=== PATIENT | male | born 1965 | race Caucasian/White ===

== ENCOUNTER 2025-01-30 10:15 | Emergency (ER) | payer OTHER, SELFPAY ==
[2025-01-30 10:16] VITALS: BP 165/82; PULSE 81; RESP 19; TEMP 36.6; O2SAT 97; BMI 53.4
[2025-01-30 10:28] VITALS: O2SAT 97
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
--- NOTE | 2025-01-30 12:55 | CT_ITS ---
PROCEDURE: SPINE THORACIC WITHOUT CONTRAS 01/30/2025 REASON FOR EXAM: Upper back pain TECHNIQUE: Procedure Code: CTSPTH Modality: CT Procedure: SPINE THORACIC WITHOUT CONTRAS Coronal and Sagittal reconstruction series were provided. One or more dose reduction techniques were used (e.g., Automated exposure control, adjustment of the mA and/or kV according to patient size, use of iterative reconstruction technique). RADIATION DOSE SUMMARY: DLP: 2021.42 mGycm COMPARISON: None available. FINDINGS: The normal thoracic kyphosis is maintained. The thoracic vertebral bodies are normal in height. The thoracic vertebral bodies are normal in alignment. The thoracic facet joints are aligned. The thoracic spinal processes are intact. No evidence of focal lytic or sclerotic lesion in the thoracic spine. Degenerative changes of the thoracic spine. There is no evidence of high-grade thoracic spinal canal or neural foraminal stenosis on CT. CT/Spine Thoracic without Contras IMPRESSION: No acute fracture or dislocation in the thoracic spine. Reading Location: [facility]
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
[2025-01-30 13:21] VITALS: BP 148/63; PULSE 68; RESP 18; O2SAT 96
[2025-01-30 13:43] VITALS: BP 148/63; PULSE 68; RESP 18; TEMP 36.6; O2SAT 96
--- OUTSIDE RECORDS SUMMARY | 2025-01-30 19:29 | XMS RPT_ITS | CCD ---
Author Organization [facility] Care Team Providers Care 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 Name Role Phone Vicente Castañeda MD Primary Care Provider Vicente Castañeda MD Primary Care Provider Yvan BUN PANNER.Rahda BEARD Unavailable Aurora Hahn PA-C Unavailable Vicente Castañeda MD Primary Care Provider [phone] Aurora Hahn PA-C Primary Care Provider Vicente Castañeda MD Primary Care Provider Knyuly BUN PANNER.Radha BEARD Unavailable Aurora Hahn PA-C Unavailable [phone] [facility] Attending Unavailable VICENTE CASTAÑEDA Primary Care Unavailable [facility] Referring Unavailable VICENTE CASTAÑEDA Primary Care Unavailable Medications Current Medications Medication Drug Class(es) Dates Sig (Normalized) Sig (Original) aspirin 81 mg delayed release oral tablet (12 sources) Platelet Aggregation Inhibitor, Nonsteroidal Anti-inflammatory Drug take 1 tablet by mouth once daily aspirin, enteric coated (ASPIRIN, ENTERIC COATED) 81 mg EC tablet Take 81 mg by mouth once daily. Active Comment on above: Take 81 mg by mouth once daily. azithromycin 250 mg oral tablet (1 source) Macrolide Antimicrobial Start: 05-23-2022 End: 05-28-2022 azithromycin (ZITHROMAX Z-SJ) 250 mg tablet Indications: Bronchitis Take 2 tablets day one, then, 1 tablet daily until gone. 6 tablet 0 05/23/2022 05/28/2022 Active Comment on above: Take 2 tablets day o ne, then, 1 tablet daily until gone. levothyroxine sodium 0.075 mg oral tablet (20 sources) l-Thyroxine Start: 04-22-2021 End: 01-14-2024 levothyroxine (SYNTHROID) 75 mcg tablet Indications: Acquired hypothyroidism Take 1 tablet by mouth once daily. Thursday-Thursday. Take 2 tablet on Thursday. Take on empty stomach. For Thyroid. 102 tablet 3 01/14/2024 Active Start: 10-02-2020 End: 10-30-2020 take 1 tablet by mouth once daily for thyroid dysfunction levothyroxine (SYNTHROID) 75 mcg tablet Take 1 tablet by mouth once daily. Take on empty stomach. For Thyroid. 30 tablet 5 10/02/2020 10/30/2020 Discontinued Comment on above: Take 1 tablet by florian th once daily. Thursday-Thursday. Take 1.5 tablet on Thursday. Take on empty stomach. For Thyroid. Take 1 tablet by florian th once daily. Thursday-Thursday. Take 2 tablet on Thursday. Take on empty stomach. For Thyroid. predniSONE 10 mg oral tablet (2 sources) Start: End: predniSONE (DELTASONE) 10 mg tablet Take 4 tabs daily for 3 days, then 2 tabs daily for 3 days, then 1 tab daily for 3 days with food. 21 tablet 0 10/21/2021 10/30/2021 Active Comment on above: Take 4 tabs daily fo r 3 days, then 2 tabs daily for 3 days, then 1 tab daily for 3 days with food. rosuvastatin calcium 20 mg oral tablet (20 sources) HMG-CoA Reductase Inhibitor Start: End: take 1 tablet by mouth once daily at bedtime rosuvastatin (CRESTOR) 20 mg tablet Indications: Hyperlipidemia, unspecified hyperlipidemia type Take 1 tablet by mouth daily at bedtime. 90 tablet 3 01/14/2024 Active Comment on above: Take 1 tablet by florian th daily at bedtime. TAKE 1 TABLET BY FLORIAN TH AT BEDTIME Completed/Discontinued Medications Medication Drug Class(es) Dates Sig (Normalized) Sig (Original) [id number] 200 actuat albuterol 0.09 mg/actuat metered dose inhaler (6 sources) beta2-Adrenergic Agonist Start: 06-17-2021 End: 10-21-2021 take 2 puff(s) by inhalation every four hours as needed albuterol HFA (VENTOLIN HFA) 90 mcg/actuation inhaler Indications: History of COVID-19 , Productive cough Inhale 2 Puffs as instructed every 4 hours as needed. 1 Inhaler 1 06/17/2021 10/21/2021 Discontinued Comment on above: Inhale 2 Puffs as in structed every 4 hours as needed. benzonatate 100 mg oral capsule (5 sources) Non-narcotic Antitussive Start: 06-17-2021 End: 06-27-2021 take 1 capsule by mouth three times daily as needed benzonatate (TESSALON PERLE) 100 mg capsule Indications: History of COVID-19 , Productive cough Take 1 capsule by mouth three times daily as needed for up to 10 days. 30 capsule 06/17/2021 06/27/2021 Comment on above: Take 1 capsule by mo [facility] three times daily as needed for up to 10 days. cyclobenzaprine hydrochloride 10 mg oral tablet (20 sources) Muscle Relaxant Start: 10-21-2021 End: 08-10-2024 take 1 tablet by mouth every eight hours as needed cyclobenzaprine (FLEXERIL) 10 mg tablet Take 1 tablet by mouth three times a day as needed for muscle spasm. 90 tablet 3 11/14/2022 08/10/2024 Discontinued Comment on above: Take 1 tablet by florian three times daily as needed for muscle spasm. Take 1 tablet by florian th three times a day as needed for muscle spasm. diclofenac sodium 0.01 mg/mg topical gel (12 sources) Nonsteroidal Anti-inflammatory Drug Start: 11-14-2022 End: 08-10-2024 apply 4 g topically four times daily diclofenac (VOLTAREN) 1 % topical gel Apply 4 g to affected area four times daily. 100 g 5 11/14/2022 08/10/2024 Discontinued Comment on above: Apply 4 g to affecte d area four times daily. fluticasone propionate 0.05 mg/actuat metered dose nasal spray (5 sources) Corticosteroid Start: 07-02-2023 End: 08-10-2024 take 2 spray(s) by mouth once daily fluticasone (FLONASE) 50 mcg/actuation nasal spray Indications: Vertigo Use 2 Sprays in each nostril once daily. Rinse mouth after use. 1 Each 1 07/02/2023 08/10/2024 Discontinued meclizine hydrochloride 25 mg oral tablet (5 sources) Antiemetic Start: 07-02-2023 End: 08-10-2024 take 1 tablet by mouth every six hours as needed for dizziness meclizine (ANTIVERT) 25 mg tab Indications: Vertigo Take 1 tablet by mouth every 6 hours as needed (dizziness). 30 tablet 1 07/02/2023 08/10/2024 Discontinued meloxicam 15 mg oral tablet (16 sources) Nonsteroidal Anti-inflammatory Drug Start: 05-23-2022 End: 08-10-2024 take 1 tablet by mouth once daily at mealtime meloxicam (MOBIC) 15 mg tablet Take 1 tablet by mouth once daily. Take with food. 90 tablet 3 11/14/2022 08/10/2024 Discontinued Comment on above: Take 1 tablet by florian th once daily. Take with food. perflutren lipid microspheres 1.3 mL in NaCl (PF) 0.9% 10 mL injection (DEFINITY) (12 sources) Start: 10-04-2020 End: 01-03-2022 perflutren lipid microspheres 1.3 mL in NaCl (PF) 0.9% 10 mL injection (DEFINITY) 125 ml sodium chloride 9 mg/ml prefilled syringe (12 sources) Start: 10-04-2020 End: 01-03-2022 sodium chloride 0.9 % (flush) 10 mL (BD POSIFLUSH) Problems Active Problems Problem Classification Problem Date Documented Date Episodic/Chronic Chronic obstructive pulmonary disease and bronchiectasis (1 source) Bronchitis; Translations: [Bronchitis, not specified as acute or chronic] Episodic Disorders of lipid metabolism (5 sources) Hyperlipidemia; Translations: [Hyperlipidemia, unspecified] Chronic Immunizations and screening for infectious disease (1 source) Viral screening status; Translations: [Encounter for screening for other viral diseases] Episodic Mood disorders (20 sources) Recurrent major depression in remission; Translations: [Major depressive disorder, recurrent, in remission, unspecified] Onset: 10-05-2007 03-17-2019 Chronic Other connective tissue disease (1 source) Lateral epicondylitis of left humerus; Translations: [Lateral epicondylitis, left elbow] Episodic Other ear and sense organ disorders (1 source) Bilateral tinnitus; Translations: [Tinnitus, bilateral] 07-02-2023 Episodic Other infections; including parasitic (2 sources) Personal history of other infectious and parasitic diseases; Translations: [History of COVID-19] Episodic Other lower respiratory disease (2 sources) Productive cough ; Translations: [Productive cough] Episodic Other non-traumatic joint disorders (5 sources) Pain in right knee; Translations: [Pain in joint, lower leg] Episodic Other nutritional; endocrine; and metabolic disorders (20 sources) Body mass index 40+ - severely obese; Translations: [Morbid (severe) obesity due to excess calories] Onset: 10-05-2007 03-17-2019 Chronic Other nutritional; endocrine; and metabolic disorders (2 sources) Morbid obesity; Translations: [Morbid (severe) obesity due to excess calories] 11-14-2022 Chronic Other nutritional; endocrine; and metabolic disorders (1 source) Morbid (severe) obesity due to excess calories; Translations: [Morbid obesity with BMI of 50.0-59.9, adult ([facility])] Onset: 08-10-2024 Chronic Other nutritional; endocrine; and metabolic disorders (1 source) Body mass index (BMI) 50.0-59.9, adult; Translations: [Morbid obesity with BMI of 50.0-59.9, adult ([facility])] Onset: 08-10-2024 Chronic Other screening for suspected conditions (not mental disorders or infectious disease) (20 sources) Patient encounter status; Translations: [Encounter for screening for diabetes mellitus] Onset: 11-19-2018 11-19-2018 Episodic Other skin disorders (1 source) Finding of neck region; Translations: [Localized swelling, mass and lump, neck] Episodic Residual codes; unclassified (20 sources) Obstructive sleep apnea syndrome; Translations: [Obstructive sleep apnea (adult) (pediatric)] Onset: 02-16-2015 10-02-2020 Chronic Residual codes; unclassified (1 source) Obstructive sleep apnea (adult) (pediatric); Translations: [Obstructive sleep apnea syndrome] Onset: 10-02-2020 Chronic Screening and history of mental health and substance abuse codes (1 source) Encounter for screening examination for other mental health and behavioral disorders; Translations: [Encounter for screening examination for other mental health and behavioral disorders] Onset: 08-10-2024 Episodic Thyroid disorders (20 sources) Acquired hypothyroidism; Translations: [Hypothyroidism, unspecified] Onset: 01-22-2008 04-19-2021 Chronic Unclassified (1 source) Obesity, Class III, BMI 40-49.9 (morbid obesity) ([facility]); Translations: [Obesity, Class III, BMI 40-49.9 (morbid obesity) ([facility])] Onset: 03-17-2019 Past or Other Problems Problem Classification Problem Date Documented Da te Episodic/Chronic Adjustment disorders (12 sources) Adjustment disorder with mixed anxiety and depressed mood; Translations: [Adjustment disorder with mixed anxiety and depressed mood] Onset: 05-24-2008 Resolved: 02-16-2015 02-16-2015 Chronic Anxiety disorders (12 sources) Anxiety state; Translations: [Generalized anxiety disorder] Onset: 10-05-2007 Resolved: 02-16-2015 02-16-2015 Chronic Conditions associated with dizziness or vertigo (8 sources) Vertigo; Translations: [Dizziness and giddiness] Onset: 07-20-2023 07-02-2023 Episodic Diabetes mellitus without complication (20 sources) Increased glucose level; Translations: [Other abnormal glucose] Onset: 07-06-2020 07-06-2020 Episodic Residual codes; unclassified (12 sources) Sleep apnea; Translations: [Sleep apnea, unspecified] Onset: 03-12-2007 Resolved: 03-19-2015 03-19-2015 Chronic Spondylosis; intervertebral disc disorders; other back problems (20 sources) Stenosis of lumbar vertebral foramen; Translations: [Spinal stenosis, lumbar region without neurogenic claudication] Onset: 02-10-2004 03-17-2019 Episodic Results Test Name Value Interpretation Reference Range Facility [facility] 08-10-2024 [facility] Office Visit (FAMPWS ) KAYLAH HOBSON ([id number]) 1965 M Date Time Provider Department 08/10/24 9:40 AM [facility] During your visit today, we recorded the following information about you: Temperature Pulse Respiration Blood pressure 97.4 degrees 76/minute 18/minute 136/83 Weight Height 163.3 kg 1.735 m Aurora Hahn PA-C 08/10/2024 12:46 PM Signed Chief Complaint Patient presents with: Yearly Exam HPI Kaylah Hobson is a 59 year old male who presents here today for physical. Patient with hx of Hypothyroid, FREDRICK, elevated glucose, depression, obesity, and those as below. Annual Wellness Exam: - No significant medical or surgical changes since last visit. - Occasional cigar use. - Consumes approximately 12 beers per week; denies drug use, including marijuana. Weight Management: - Current weight: 360 lbs; weight in June 2023: 359 lbs. - Desires to lose weight through diet and exercise, but lacks motivation. - Diet high in carbohydrates, particularly breads; denies high sweets intake. - Drinks water, coffee, orange juice, iced tea, and beer. - Denies interest in weight loss surgery or medication. Prediabetes: - Recent labs show elevated A1c and fasting glucose of 139 mg/dL. - Kaylah believes he can manage blood sugar levels through diet and weight loss. - Denies interest in medication for blood sugar control. Concentration Issues: - Reports difficulty concentrating and brain fog over the past couple of years. - Describes inability to focus as overwhelming and affecting work performance. - Denies history of ADHD; refuses medication for concentration issues. Past medical history, appointments, medications, allergies reviewed. Previous Medical History PAST MEDICAL HISTORY Diagnosis Date Acquired hypothyroidism 01/22/2008 No longer on medication Cardiac dysrhythmia, unspecified 12/29/2007 ECG showed a single PVC in 12-17 Cervicalgia 02/20/2010 Foraminal stenosis of lumbar region 11/19/2018 Lumbago 02/20/2010 Obesity, Class III, BMI 40-49.9 (morbid obesity) (HCC) 10/05/2007 Obstructive sleep apnea syndrome 02/16/2015 Other chronic sinusitis 1994 Recurrent major depressive disorder, in remission 10/05/2007 Appt with Chay Brian on 11-22-07 at [facility] Intolerant of Paxil as of 10-17: changed to a trial of Cymbalta Trial of q Cymbalta as of 10-17: if no ringing in the ears then will try once daily dosing after 2 weeks Appt 01-16 with physician at [facility]: work release granted until after his 01-24-08 appt with [facility] 01-16: clinically improving, no need for pharmacologic intervention Working p Spinal stenosis in cervical region 2004 Spondylosis Temporomandibular joint disorders, unspecified Previous Surgical History PAST SURGICAL HISTORY Procedure Laterality Date PAST SURGICAL HISTORY OF 2003 C5,6,7 fusion PAST SURGICAL HISTORY OF 1986 1990 TMJ PAST SURGICAL HISTORY OF 1992 sinus surgery PAST SURGICAL HISTORY OF 2004 ear surgery, left, cholesteatoma? Family History FAMILY HISTORY Adopted: Yes Problem Relation Age of Onset other (adopted) Other Patient Allergies ALLERGIES No Known Allergies Current Medications Current Outpatient Medications on File Prior to Visit Medication Sig levothyroxine (SYNTHROID) 75 mcg tablet Take 1 tablet by mouth once daily. Thursday-Thursday. Take 2 tablet on Thursday. Take on empty stomach. For Thyroid. rosuvastatin (CRESTOR) 20 mg tablet Take 1 tablet by mouth daily at bedtime. aspirin, enteric coated (ASPIRIN, ENTERIC COATED) 81 mg EC tablet Take 81 mg by mouth once daily. meclizine (ANTIVERT) 25 mg tab Take 1 tablet by mouth every 6 hours as needed (dizziness). (Patient not taking: Reported on 08/10/2024) fluticasone (FLONASE) 50 mcg/actuation nasal spray Use 2 Sprays in each nostril once daily. Rinse mouth after use. (Patient not taking: Reported on 08/10/2024) cyclobenzaprine (FLEXERIL) 10 mg tablet Take 1 tablet by mouth three times a day as needed for muscle spasm. (Patient not taking: Reported on 08/10/2024) meloxicam (MOBIC) 15 mg tablet Take 1 tablet by mouth once daily. Take with food. (Patient not taking: Reported on 08/10/2024) diclofenac (VOLTAREN) 1 % topical gel Apply 4 g to affected area four times daily. (Patient not taking: Reported on 08/10/2024) No current facility-administered medications on file prior to visit. Social History Social History Tobacco Use Smoking status: Former Current packs/day: 0.00 Average packs/day: 1 pack/day for 13.0 years (13.0 ttl pk-yrs) Types: Cigarettes Start date: 02/11/1983 Quit date: 02/12/1996 Years since quittin.5 Smokeless tobacco: Never Tobacco comments: smokes cigars occasionally Vaping Use Vaping status: Never Used Substance Use Topics Alcohol use: Yes Alcohol/week: 12.0 standard drinks of alcohol Types (more content not included)... Normal [facility] CBC W Auto Differential pane l (Bld)on 08-08-2024 Basophils (Bld) [#/Vol] 0.05 10*3/uL [facility] Basophils/100 WBC (Bld) 0.7 % [facility] Differential cell count method Nom (Bld) Auto [facility] Eosinophils (Bld) [#/Vol] 0.32 10*3/uL [facility] Eosinophils/100 WBC (Bld) 4.6 % [facility] Erythrocyte distribution width (RBC) [Ratio] 14.8 % 11.5 - 15.0 % [facility] Hematocrit (Bld) [Volume fraction] 47.7 % 39.0 - 51.0 % [facility] Hemoglobin (Bld) [Mass/Vol] 14.5 g/dL 13.0 - 17.0 g/dL [facility] Immature granulocytes (Bld) [#/Vol] [facility] Immature granulocytes/100 WBC (Bld) 0.3 % [facility] Interpretation and review of laboratory results Abnormal [facility] Lymphocytes (Bld) [#/Vol] 1.2 10*3/uL [facility] Lymphocytes/100 WBC (Bld) 17.2 % [facility] MCH (RBC) [Entitic mass] 25.5 pg Low 26.0 - 34.0 pg [facility] MCHC (RBC) [Mass/Vol] 30.4 g/dL Low 30.5 - 36.0 g/dL [facility] MCV (RBC) [Entitic vol] 83.8 fL 80.0 - 100.0 fL [facility] Monocytes (Bld) [#/Vol] 0.65 10*3/uL [facility] Monocytes/100 WBC (Bld) 9.3 % [facility] Neutrophils (Bld) [#/Vol] 4.72 10*3/uL [facility] Neutrophils/100 WBC (Bld) 67.9 % [facility] Nucleated RBC (Bld) [#/Vol] [facility] Nucleated RBC/100 WBC (Bld) [Ratio] 0 % /100 WBC [facility] Platelet mean volume (Bld) [Entitic vol] 10.9 fL 9.0 - 12.7 fL [facility] Platelets (Bld) [#/Vol] 282 10*3/uL [facility] RBC (Bld) [#/Vol] 5.69 10*6/uL 4.20 - 6.0 0 m/uL [facility] WBC (Bld) [#/Vol] 6.96 10*3/uL [facility] Basophils (Bld) [#/Vol] 0.05 10*3/uL Normal <0.11 [facility] Comment on above: Order Comment: Speci men Type: BLOOD SPECIMEN Ordering Facility: [facility] Address: [address] [place] [address] Performed By: #### 5 7021-8 #### [facility] CLIA [id number] [address] [place] [address] [place] Basophils/100 WBC (Bld) 0.7 % Normal [facility] Comment on above: Order Comment: Speci men Type: BLOOD SPECIMEN Ordering Facility: [facility] Address: [address] [place] [address] Performed By: #### 5 7021-8 #### [facility] CLIA [id number] [address] [place] [address] [place] Differential cell count method Nom (Bld) Auto Normal [facility] Comment on above: Order Comment: Speci men Type: BLOOD SPECIMEN Ordering Facility: [facility] Address: [address] [place] [address] Performed By: #### 5 7021-8 #### [facility] CLIA [id number] [address] [place] [address] [place] Eosinophils (Bld) [#/Vol] 0.32 10*3/uL Normal <0.46 [facility] Comment on above: Order Comment: Speci men Type: BLOOD SPECIMEN Ordering Facility: [facility] Address: [address] [place] [address] Performed By: #### 5 7021-8 #### [facility] CLIA [id number] [address] [place] [address] [place] Eosinophils/100 WBC (Bld) 4.6 % Normal [facility] Comment on above: Order Comment: Speci men Type: BLOOD SPECIMEN Ordering Facility: [facility] Address: [address] [place] [address] Performed By: #### 5 7021-8 #### [facility] CLIA [id number] [address] [place] [address] [place] Erythrocyte distribution width (RBC) [Ratio] 14.8 % Normal 11.5-15.0 [facility] Comment on above: Order Comment: Speci men Type: BLOOD SPECIMEN Ordering Facility: [facility] Address: [address] [place] [address] Performed By: #### 5 7021-8 #### [facility] CLIA [id number] [address] [place] [address] [place] Hematocrit (Bld) [Volume fraction] 47.7 % Normal 39.0-51.0 [facility] Comment on above: Order Comment: Speci men Type: BLOOD SPECIMEN Ordering Facility: [facility] Address: [address] [place] [address] Performed By: #### 5 7021-8 #### [facility] CLIA [id number] [address] [place] [address] [place] Hemoglobin (Bld) [Mass/Vol] 14.5 g/dL Normal 13.0-17.0 [facility] Comment on above: Order Comment: Speci men Type: BLOOD SPECIMEN Ordering Facility: [facility] Address: [address] [place] [address] Performed By: #### 5 7021-8 #### [facility] CLIA [id number] [address] [place] [address] [place] Immature granulocytes (Bld) [#/Vol] 10*3/uL Normal <0.10 [facility] Comment on above: Order Comment: Speci men Type: BLOOD SPECIMEN Ordering Facility: [facility] Address: [address] [place] [address] Performed By: #### 5 7021-8 #### [facility] CLIA [id number] [address] [place] [address] [place] Immature granulocytes/100 WBC (Bld) 0.3 % Normal [facility] Comment on above: Order Comment: Speci men Type: BLOOD SPECIMEN Ordering Facility: [facility] Address: [address] [place] [address] Performed By: #### 5 7021-8 #### [facility] CLIA [id number] [address] [place] [address] [place] Lymphocytes (Bld) [#/Vol] 1.20 10*3/uL Normal 1.00-4.00 [facility] Comment on above: Order Comment: Speci men Type: BLOOD SPECIMEN Ordering Facility: [facility] Address: [address] [place] [address] Performed By: #### 5 7021-8 #### [facility] CLIA [id number] [address] [place] [address] [place] Lymphocytes/100 WBC (Bld) 17.2 % Normal [facility] Comment on above: Order Comment: Speci men Type: BLOOD SPECIMEN Ordering Facility: [facility] Address: [address] [place] [address] Performed By: #### 5 7021-8 #### [facility] CLIA [id number] [address] [place] [address] [place] MCH (RBC) [Entitic mass] 25.5 pg Low 26.0-34.0 [facility] Comment on above: Order Comment: Speci men Type: BLOOD SPECIMEN Ordering Facility: [facility] Address: [address] [place] [address] Performed By: #### 5 7021-8 #### [facility] CLIA [id number] [address] [place] [address] [place] MCHC (RBC) [Mass/Vol] 30.4 g/dL Low 30.5-36.0 [facility] Comment on above: Order Comment: Speci men Type: BLOOD SPECIMEN Ordering Facility: [facility] Address: [address] [place] [address] Performed By: #### 5 7021-8 #### [facility] CLIA [id number] [address] [place] [address] [place] MCV (RBC) [Entitic vol] 83.8 fL Normal 80.0-100.0 [facility] Comment on above: Order Comment: Speci men Type: BLOOD SPECIMEN Ordering Facility: [facility] Address: [address] [place] [address] Performed By: #### 5 7021-8 #### [facility] CLIA [id number] [address] [place] [address] [place] Monocytes (Bld) [#/Vol] 0.65 10*3/uL Normal <0.87 [facility] Comment on above: Order Comment: Speci men Type: BLOOD SPECIMEN Ordering Facility: [facility] Address: [address] [place] [address] Performed By: #### 5 7021-8 #### [facility] CLIA [id number] [address] [place] [address] [place] Monocytes/100 WBC (Bld) 9.3 % Normal [facility] Comment on above: Order Comment: Speci men Type: BLOOD SPECIMEN Ordering Facility: [facility] Address: [address] [place] [address] Performed By: #### 5 7021-8 #### [facility] CLIA [id number] [address] [place] [address] [place] Neutrophils (Bld) [#/Vol] 4.72 10*3/uL Normal 1.45-7.50 [facility] Comment on above: Order Comment: Speci men Type: BLOOD SPECIMEN Ordering Facility: [facility] Address: [address] [place] [address] Performed By: #### 5 7021-8 #### [facility] CLIA [id number] [address] [place] [address] [place] Neutrophils/100 WBC (Bld) 67.9 % Normal [facility] Comment on above: Order Comment: Speci men Type: BLOOD SPECIMEN Ordering Facility: [facility] Address: [address] [place] [address] Performed By: #### 5 7021-8 #### [facility] CLIA [id number] [address] [place] [address] [place] Nucleated RBC (Bld) [#/Vol] 10*3/uL Normal <0.01 [facility] Comment on above: Order Comment: Speci men Type: BLOOD SPECIMEN Ordering Facility: [facility] Address: [address] [place] [address] Performed By: #### 5 7021-8 #### [facility] CLIA [id number] [address] [place] [address] [place] Nucleated RBC/100 WBC (Bld) [Ratio] 0.0 /100 WBC Normal [facility] Comment on above: Order Comment: Speci men Type: BLOOD SPECIMEN Ordering Facility: [facility] Address: [address] [place] [address] Performed By: #### 5 7021-8 #### [facility] CLIA [id number] [address] [place] [address] [place] Platelet mean volume (Bld) [Entitic vol] 10.9 fL Normal 9.0-12.7 [facility] Comment on above: Order Comment: Speci men Type: BLOOD SPECIMEN Ordering Facility: [facility] Address: [address] [place] [address] Performed By: #### 5 7021-8 #### [facility] CLIA [id number] [address] [place] [address] [place] Platelets (Bld) [#/Vol] 282 10*3/uL Normal 150-400 [facility] Comment on above: Order Comment: Speci men Type: BLOOD SPECIMEN Ordering Facility: [facility] Address: [address] [place] [address] Performed By: #### 5 7021-8 #### [facility] CLIA [id number] [address] [place] [address] [place] RBC (Bld) [#/Vol] 5.69 10*6/uL Normal 4.20-6.00 [facility] Comment on above: Order Comment: Speci men Type: BLOOD SPECIMEN Ordering Facility: [facility] Address: [address] [place] [address] Performed By: #### 5 7021-8 #### [facility] CLIA [id number] [address] [place] [address] [place] WBC (Bld) [#/Vol] 6.96 10*3/uL Normal 3.70-11.00 [facility] Comment on above: Order Comment: Speci men Type: BLOOD SPECIMEN Ordering Facility: [facility] Address: [address] [place] [address] Performed By: #### 5 7021-8 #### [facility] CLIA [id number] [address] [place] [address] OF [place] Lydia 08-08-2024 KISHAN Telephone (FAMPWS) KAYLAH HOBSON ([id number]) 1965 M Date Time Provider Department 08/08/24 VICENTE CASTAÑEDA During your visit today, we recorded the following information about you: Jacqueline Cole RN 08/08/2024 8:54 AM Signed Patient calling in. States he has a Physical scheduled with MILO Andrews tomorrow and asking if she would like to place lab orders this morning for him to complete today. Reports he has not ate anything yet. Please call patent with update. [phone] TRU Tao Rayanne, PA-C 08/08/2024 9:10 AM Signed Carlota Hameed LPN 08/08/2024 9:20 AM Signed Pt notified orders have been placed. Carlota Miranda LPN Allergies As of Date: 08/08/2024 (No Known Allergies) Date Reviewed: 07/02/2023 Reviewed by: Monica Murray MA - Fully Assessed Reason for Visit: Orders [681] Primary Visit Diagnosis:Acquired hypothyroidism [E03.9] Other Visit Diagnoses:Obesity, Class III, BMI 40-49.9 (morbid obesity) (HCC) [E66.813] Screening for diabetes mellitus [Z13.1] Elevated glucose [R73.09] Abnormal nuclear stress test [R94.39] Morbid obesity (HCC) [E66.01] Obstructive sleep apnea syndrome [G47.33] Hyperlipidemia, unspecified hyperlipidemia type [E78.5] Screening for prostate cancer [Z12.5] Order(s):COMPLETE BLOOD COUNT AND DIFFERENTIAL [SQCBCDIF] Order #: [id number] FUTURE HEMOGLOBIN A1C [ZVYIF1R] Order #: [id number] FUTURE LIPID PANEL, NONFASTING [SQLIPNF] Order #: [id number] FUTURE THYROID STIMULATING HORMONE [SQTSH] Order #: [id number] FUTURE COMPREHENSIVE METABOLIC PANEL [SQCMP] Order #: [id number] FUTURE PROSTATE-SPECIFIC ANTIGEN DIAGNOSTIC [SQPSA] Order #: [id number] FUTURE Prescriptions as of 08/08/2024 - levothyroxine (SYNTHROID) 75 mcg tablet Take 1 tablet by mouth once daily. Thursday-Thursday. Take 2 tablet on Thursday. Take on empty stomach. For Thyroid. - rosuvastatin (CRESTOR) 20 mg tablet Take 1 tablet by mouth daily at bedtime. - meclizine (ANTIVERT) 25 mg tab Take 1 tablet by mouth every 6 hours as needed (dizziness). - fluticasone (FLONASE) 50 mcg/actuation nasal spray Use 2 Sprays in each nostril once daily. Rinse mouth after use. - aspirin, enteric coated (ASPIRIN, ENTERIC COATED) 81 mg EC tablet Take 81 mg by mouth once daily. - cyclobenzaprine (FLEXERIL) 10 mg tablet Take 1 tablet by mouth three times a day as needed for muscle spasm. - meloxicam (MOBIC) 15 mg tablet Take 1 tablet by mouth once daily. Take with food. - diclofenac (VOLTAREN) 1 % topical gel Apply 4 g to affected area four times daily. 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 Comment on above: Order Comment: Speci men Type: BLOOD SPECIMEN Ordering Facility: [facility] Address: [address] [place] [address] Performed By: #### 2 4323-8, LIPNF, 3016-3 #### [facility] CLIA [id number] [address] [place] [address] [place] ALP [Catalytic activity/Vol] 102 U/L Normal 38-113 [facility] Comment on above: Order Comment: Speci men Type: BLOOD SPECIMEN Ordering Facility: [facility] Address: [address] [place] [address] Performed By: #### 2 4323-8, LIPNF, 6-3 #### [facility] CLIA [id number] [address] [place] [address] [place] ALT [Catalytic activity/Vol] 21 U/L Normal 10-54 [facility] Comment on above: Order Comment: Speci men Type: BLOOD SPECIMEN Ordering Facility: [facility] Address: [address] [place] [address] Performed By: #### 2 4323-8, LIPNF, 6-3 #### [facility] CLIA [id number] [address] [place] [address] [place] Anion gap [Moles/Vol] 12 mmol/L Normal 8-15 [facility] Comment on above: Order Comment: Speci men Type: BLOOD SPECIMEN Ordering Facility: [facility] Address: [address] [place] [address] Performed By: #### 2 4323-8, LIPNF, 6-3 #### [facility] CLIA [id number] [address] [place] [address] [place] AST [Catalytic activity/Vol] 27 U/L Normal 14-40 [facility] Comment on above: Order Comment: Speci men Type: BLOOD SPECIMEN Ordering Facility: [facility] Address: [address] [place] [address] Performed By: #### 2 4323-8, LIPNF, 3016-3 #### [facility] CLIA [id number] [address] [place] [address] [place] Bilirubin [Mass/Vol] 0.3 mg/dL Normal 0.2-1.3 [facility] Comment on above: Order Comment: Speci men Type: BLOOD SPECIMEN Ordering Facility: [facility] Address: [address] [place] [address] Performed By: #### 2 4323-8, LIPNF, 6-3 #### [facility] CLIA [id number] [address] [place] [address] [place] Calcium [Mass/Vol] 9.2 mg/dL Normal 8.5-10.2 [facility] Comment on above: Order Comment: Speci men Type: BLOOD SPECIMEN Ordering Facility: [facility] Address: [address] [place] [address] Performed By: #### 2 4323-8, LIPNF, 6-3 #### [facility] CLIA [id number] [address] [place] [address] [place] Chloride [Moles/Vol] 105 mmol/L Normal 98-107 [facility] Comment on above: Order Comment: Speci men Type: BLOOD SPECIMEN Ordering Facility: [facility] Address: [address] [place] [address] Performed By: #### 2 4323-8, LIPNF, 3016-3 #### [facility] CLIA [id number] [address] [place] [address] [place] CO2 [Moles/Vol] 22 mmol/L Normal 22-30 [facility] Comment on above: Order Comment: Speci men Type: BLOOD SPECIMEN Ordering Facility: [facility] Address: [address] [place] [address] Performed By: #### 2 4323-8, LIPNF, 3016-3 #### [facility] CLIA [id number] [facility] [place] [id number] [place] Creatinine [Mass/Vol] 0.97 mg/dL Normal 0.73-1.22 [facility] Comment on above: Order Comment: Erik eugene Type: BLOOD SPECIMEN Ordering Facility: [facility] Address: [address] [place] [address] Performed By: #### 2 4323-8, ALEXANDRA, 6-3 #### [facility] CLIA [id number] [address] [place] [address] [place] Creatinine and Glomerular filtration rate.predicted panel (S/P/Bld) 91 mL/min/1.73m??? Normal >=60 [facility] Comment on above: Order Comment: Erik eugene Type: BLOOD SPECIMEN Ordering Facility: [facility] Address: [address] [place] [address] Result Comment: Ana mated Glomerular Filtration Rate (eGFR) is calculated using the 2020 CKD-EPI creatinine equation. This equation utilizes serum creatinine, sex, and age as parameters. The creatinine assay has traceable calibration to isotope dilution-mass spectrometry. Refer to KDIGO guidelines for clinical interpretation. In patients with unstable renal function, e.g. those with acute kidney injury, the eGFR may not accurately reflect actual GFR. Performed By: #### 2 4323-8, ALEXANDRA, 6-3 #### [facility] CLIA [id number] [address] [place], [place] [id number] [place] Glucose [Mass/Vol] 139 mg/dL High 74-99 [facility] Comment on above: Order Comment: Erik men Type: BLOOD SPECIMEN Ordering Facility: [facility] Address: [address] [place] [address] Result Comment: The [place] Diabetes Association (ADA) provides guidance for cutoff values for fasting glucose and random glucose. The ADA defines fasting as no caloric intake for at least 8 hours. Fasting plasma glucose results between 100 to 125 mg/dL indicate increased risk for diabetes (prediabetes). Fasting plasma glucose results greater than or equal to 126 mg/dL meet the criteria for diagnosis of diabetes. In the absence of unequivocal hyperglycemia, results should be confirmed by repeat testing. In a patient with classic symptoms of hyperglycemia or hyperglycemic crisis, random plasma glucose results greater than or equal to 200 mg/dL meet the criteria for diagnosis of diabetes. Reference: Standards of Medical Care in Diabetes 2016, [place] Diabetes Association. Diabetes Care. 2016.39(Suppl 1). Performed By: #### 2 4323-8, LIPNF, 6-3 #### [facility] CLIA [id number] [address] [place] [address] [place] Potassium [Moles/Vol] 4.6 mmol/L Normal 3.7-5.1 [facility] Comment on above: Order Comment: Speci men Type: BLOOD SPECIMEN Ordering Facility: [facility] Address: [address] [place] [address] Performed By: #### 2 4323-8, LIPNF, 3015-3 #### [facility] CLIA [id number] [address] [place] [address] [place] Protein [Mass/Vol] 7.4 g/dL Normal 6.3-8.0 [facility] Comment on above: Order Comment: Sandyi jabier Type: BLOOD SPECIMEN Ordering Facility: [facility] Address: [address] [place] [address] Performed By: #### 2 4323-8, LIPNF, 3015-3 #### [facility] CLIA [id number] [address] [place] [address] [place] Sodium [Moles/Vol] 139 mmol/L Normal 136-144 [facility] Comment on above: Order Comment: Speci men Type: BLOOD SPECIMEN Ordering Facility: [facility] Address: [address] [place] [address] Performed By: #### 2 4323-8, LIPNF, 6-3 #### [facility] CLIA [id number] [address] [place], [place] [address] [place] Urea nitrogen [Mass/Vol] 11 mg/dL Normal 9-24 [facility] Comment on above: Order Comment: Erik eugene Type: BLOOD SPECIMEN Ordering Facility: [facility] Address: [address] [place] [address] Performed By: #### 2 4323-8, LIPNF, 3016-3 #### [facility] CLIA [id number] [address] [place] [address] [place] HbA1c (Bld)on 08-08-2024 Average glucose Estimated from glycated hemoglobin (Bld) [Mass/Vol] 134 mg/dL [facility] Comment on above: eAG: (Estimated aver age glucose) is a calculated value from HgbA1c and is containers sales representative of the average blood glucose level in the last 2-3 month period. HbA1c (Bld) [Mass fraction] 6.3 % High 4.3 - 5.6 % [facility] Comment on above: [place] Diabetes As sociation guidelines indicate that patients with HgbA1c in the range 5.7-6.4% are at increased risk for development of diabetes, and intervention by lifestyle modification may be beneficial. HgbA1c greater or equal to 6.5% is considered diagnostic of diabetes. Interpretation and review of laboratory results Abnormal [facility] Average glucose Estimated from glycated hemoglobin (Bld) [Mass/Vol] 134 mg/dL Normal [facility] Comment on above: Order Comment: Erik eugene Type: BLOOD SPECIMEN Ordering Facility: [facility] Address: [address] [place] [address] Result Comment: eAG: (Estimated average glucose) is a calculated value from HgbA1c and is containers sales representative of the average blood glucose level in the last 2-3 month period. Performed By: #### 5 5454-3 #### [facility] CLIA [id number] [address] [place] [address] [place] HbA1c (Bld) [Mass fraction] 6.3 % High 4.3-5.6 [facility] Comment on above: Order Comment: Erik eugene Type: BLOOD SPECIMEN Ordering Facility: [facility] Address: [address] [place] [address] Result Comment: [place] Diabetes Association guidelines indicate that patients with HgbA1c in the range 5.7-6.4% are at increased risk for development of diabetes, and intervention by lifestyle modification may be beneficial. HgbA1c greater or equal to 6.5% is considered diagnostic of diabetes. Performed By: #### 5 5454-3 #### [facility] CLIA [id number] [address] [place] [address] [place] LIPID PANEL, NONFASTINGon Cholesterol [Mass/Vol] 114 mg/dL Normal <200 [facility] Comment on above: Order Comment: Erik eugene Type: BLOOD SPECIMEN Ordering Facility: [facility] Address: [address] [place] [address] Result Comment: <200 mg/dL, Desirable 200-239 mg/dL, Borderline high >239 mg/dL, High Performed By: #### 2 4323-8, LIPKIMI, 3016-3 #### [facility] CLIA [id number] [address] [place] [address] [place] HDL CHOLESTEROL, NF 40 mg/dL Normal >39 [facility] Comment on above: Order Comment: Erik eugene Type: BLOOD SPECIMEN Ordering Facility: [facility] Address: [address] [place] [address] Result Comment: 40-5 9 mg/dL, Acceptable >59 mg/dL, High: Negative risk factor for coronary heart disease <40 mg/dL, Low: Positive risk factor for coronary heart disease Performed By: #### 2 4323-8, LIPNF, 3016-3 #### [facility] CLIA [id number] [address] [place] [address] [place] LDL CHOLESTEROL CALCULATED, NF 55 mg/dL Normal <100 [facility] Comment on above: Order Comment: Erik eugene Type: BLOOD SPECIMEN Ordering Facility: [facility] Address: [address] [place] [address] Result Comment: <100 mg/dL, Optimal 100-129 mg/dL, Near optimal/above optimal 130-159 mg/dL, Borderline high 160-189 mg/dL, High >189 mg/dL, Very high Secondary prevention optimal LDL Cholesterol levels are recommended to be <70 mg/dL LDL cholesterol is calculated using the Casillas-NIH equation. Performed By: #### 2 4323-8, LIPNF, 6-3 #### [facility] CLIA [id number] [address] [place] [address] OF [facility] LDL/HDL RATIO, NF 1.38 mg/dL Normal <2.54 [facility] Comment on above: Order Comment: Erik eugene Type: BLOOD SPECIMEN Ordering Facility: [facility] Address: [address] [place] [address] Result Comment: Refe rence: 1. National Cholesterol Education Program ATP III Guideline At-A-Glance Quick Desk Reference: National Heart, Lung, and Blood [place]. National Institutes of Health. 2001: NIH Publication No. 01-3305. 2. An International Atherosclerosis Society position paper: global recommendations for the management of dyslipidemia: executive summary, Atherosclerosis. 2014: 232(2):410-413. Performed By: #### 2 4323-8, LIPNF, 3015-3 #### [facility] CLIA [id number] [address] [place] [address] STATES OF [facility] NON HDL CHOL, NF 74 mg/dL Normal <130 [facility] Comment on above: Order Comment: Erik eugene Type: BLOOD SPECIMEN Ordering Facility: [facility] Address: [address] [place] [address] Result Comment: <130 mg/dL, Optimal 130-159 mg/dL, Near optimal/above optimal 160-189 mg/dL, Borderline high 190-219 mg/dL, High >219 mg/dL, Very high Secondary prevention optimal non HDL Cholesterol levels are recommended to be <100 mg/dL Performed By: #### 2 4323-8, LIPNF, 6-3 #### [facility] CLIA [id number] [address] [place] [address] OF [place] T CHOL/HDL RATIO NF 2.85 mg/dL Normal <5.10 [facility] Comment on above: Order Comment: Speci men Type: BLOOD SPECIMEN Ordering Facility: [facility] Address: [address] [place] [address] Performed By: #### 2 4323-8, LIPNF, 3016-3 #### [facility] CLIA [id number] [address] [place] [address] [place] TRIGLYCERIDES, NF 103 mg/dL Normal <150 [facility] Comment on above: Order Comment: Speci men Type: BLOOD SPECIMEN Ordering Facility: [facility] Address: [address] [place] [address] Result Comment: <150 mg/dL, Normal 150-199 mg/dL, Borderline high 200-499 mg/dL, High >499 mg/dL, Very high Performed By: #### 2 4323-8, LIPNF, 3016-3 #### [facility] CLIA [id number] [address] [place] [address] [place] VLDL CHOLESTEROL, NF 15 mg/dL Normal <30 [facility] Comment on above: Order Comment: Speci men Type: BLOOD SPECIMEN Ordering Facility: [facility] Address: [address] [place] [address] Performed By: #### 2 4323-8, LIPNF, 3016-3 #### [facility] CLIA [id number] [address] [place] [address] [place] [facility] Prostate specific Ag [Mass/Vol] 0.70 ng/mL Normal <2.60 [facility] Comment on above: Order Comment: Speci men Type: BLOOD SPECIMEN Ordering Facility: [facility] Address: [address] [place] [address] Result Comment: Tota l PSA test methodology used is the Electrochemiluminescence Immunoassay by [employer]. Total PSA values by differing methodologies cannot be interchanged. Performed By: #### 2 857-1 #### [facility] CLIA [id number] [address] [place] [address] [place] TSH SerPl-aCncon 08-08-2024 TSH Qn 2.220 m[IU]/L Normal 0.270-4.200 [facility] Comment on above: Order Comment: Speci men Type: BLOOD SPECIMEN Ordering Facility: [facility] Address: [address] [place] [address] Performed By: #### 2 4323-8, LIPNF, 3016-3 #### [facility] CLIA [id number] [address] [place] [address] [place] XR Knee - right 4 Viewson IMPRESSION: 1. 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GISSEL Transcribe Date/Time: Jun 13 2023 3:46P Dictated by : KYLER KINSEY MD This examination was interpreted and the report reviewed and electronically signed by: KYLER KINSEY MD on Jun 13 2023 3:47PM [facility] DIVISION OF RADIOLOGY * * *Final Report* * * DATE OF EXAM: Jun 11 2023 11:31AM WOX 5203 - XR KNEE 4V AP/PA BOTH+LAT/LARRY RT / PROCEDURE REASON: Right knee pain, unspecified chronicity * * * * Physician Interpretation * * * * KNEE RADIOGRAPHS - RIGHT HISTORY: Right knee pain, unspecified chronicity TECHNOLOGIST PROVIDED HISTORY (if applicable): Diffuse right knee pain with stiffness over the last year. No injury TECHNIQUE: XR KNEE 4V AP/PA BOTH+LAT/LARRY RT COMPARISON: None available RESULT: Right knee: There is no acute osseous, articular, or soft tissue abnormality. There is no joint effusion or soft tissue swelling. Mild medial compartment joint space narrowing with small marginal osteophytes. Bipartite patella. DIVISION OF RADIOLOGY Provider, [facility] Francie Aviles - 06/13/2023 * * *Final Report* * * DATE OF EXAM: Jun 11 2023 11:31AM WOX 5203 - XR KNEE 4V AP/PA BOTH+LAT/LARRY RT / PROCEDURE REASON: Right knee pain, unspecified chronicity * * * * Physician Interpretation * * * * KNEE RADIOGRAPHS - RIGHT HISTORY: Right knee pain, unspecified chronicity TECHNOLOGIST PROVIDED HISTORY (if applicable): Diffuse right knee pain with stiffness over the last year. No injury TECHNIQUE: XR KNEE 4V AP/PA BOTH+LAT/LARRY RT COMPARISON: None available RESULT: Right knee: There is no acute osseous, articular, or soft tissue abnormality. There is no joint effusion or soft tissue swelling. Mild medial compartment joint space narrowing with small marginal osteophytes. Bipartite patella. IMPRESSION IMPRESSION: 1. 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[facility] Transcribe Date/Time: Jun 13 2023 3:46P Dictated by : KYLER KINSEY MD This examination was interpreted and the report reviewed and electronically signed by: KYLER KINSEY MD on Jun 13 2023 3:47PM EST [facility] XR Knee - right 4 ViewsOrder ed By: [facility] Provider on 06-13-2023 [facility] XR Knee - right 4 Viewson Radiology Study observation (narrative) [facility] XR CHEST 2V FRONTAL/LATon [facility] XR Chest PA and Lateralon IMPRESSION: Questionable mild hazy opacity overlying the right upper lung. Consider follow-up. [employer]: [facility] Transcribe Date/Time: Jun 17 2021 11:08A Dictated by : VINCE WOODRUFF MD This examination was interpreted and the report reviewed and electronically signed by: VINCE WOODRUFF MD on Jun 17 2021 11:10AM EST [id number]_U _DIVISION OF RADIOLOGY * * *Final Report* * * DATE OF EXAM: Jun 17 2021 9:32AM WOX 5291 - XR CHEST 2V FRONTAL/LAT / PROCEDURE REASON: History of COVID-19 * * * * Physician Interpretation * * * * EXAMINATION: CHEST RADIOGRAPH (2 VIEW FRONTAL & LATERAL) CLINICAL HISTORY: History of COVID-19 MQ: XC2_6 EXAM DATE/TIME: 06/17/2021 9:32 AM COMPARISON: Chest x-ray on 10/07/2011 RESULT: Lines, tubes, and devices: None. Lungs and pleura: Questionable mild hazy opacity overlying the right upper lung. No lung mass. No pleural effusion. No pneumothorax. Cardiomediastinal silhouette: Normal cardiomediastinal silhouette. Bones and soft tissues: Status post cervical spinal fusion. There are degenerative changes in the spine. [id number]_U SE_DIVISION OF RADIOLOGY Provider, Nicolas antunez [place] - 06/17/2021 * * *Final Report* * * DATE OF EXAM: Jun 17 2021 9:32AM WOX 5291 - XR CHEST 2V FRONTAL/LAT / PROCEDURE REASON: History of COVID-19 * * * * Physician Interpretation * * * * EXAMINATION: CHEST RADIOGRAPH (2 VIEW FRONTAL & LATERAL) CLINICAL HISTORY: History of COVID-19 MQ: XC2_6 EXAM DATE/TIME: 06/17/2021 9:32 AM COMPARISON: Chest x-ray on 10/07/2011 RESULT: Lines, tubes, and devices: None. Lungs and pleura: Questionable mild hazy opacity overlying the right upper lung. No lung mass. No pleural effusion. No pneumothorax. Cardiomediastinal silhouette: Normal cardiomediastinal silhouette. Bones and soft tissues: Status post cervical spinal fusion. There are degenerative changes in the spine. IMPRESSION IMPRESSION: Questionable mild hazy opacity overlying the right upper lung. Consider follow-up. 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 Date/Time: Jun 17 2021 11:08A Dictated by : VINCE WOODRUFF MD This examination was interpreted and the report reviewed and electronically signed by: VINCE WOODRUFF MD on Jun 17 2021 11:10AM EST [facility] Radiology Study observation (narrative) [facility] XR Chest PA and LateralOrder ed By: [facility] Provider on 06-17-2021 [facility] ALLIED HEALTHon 05-23-2021 ALLIED HEALTH HNO ID: [id number] Author: RT Herminio(R) Service: Radiology Author Type: Technologist Type: Allied Health Filed: 05/23/2021 7:14 PM Note Text: Radiology Service Progress Note DATE OF SERVICE: May 23, 2021 TIME: 7:12 PM PATIENT IDENTITY VERIFICATION COMPLETED USING TWO (2) STANDARD IDENTIFIERS: Name and Date of confirmed by patient verbally and Name and Date of confirmed by identification band. FALL SCREENING: Has the patient had 2 falls in the last year or 1 fall with injury or currently using an Ambulatory Assistive Device (Walker, Cane, Wheelchair, Crutches, etc.)? No PATIENT GENDER DATA: Male PATIENT RELEVANT IMPLANT DATA REVIEWED: Yes ALLERGIES: Reviewed and unchanged CONTRAST ALLERGY: NO. EXAM: MRI - CONTRAST TYPE: GROUP II PERIPHERAL IV DATA: Ambulatory: A peripheral IV was started in the Right wrist with a Butterfly: 23 gauge. RADIOLOGY DEPARTMENT: MR; Exam(s) Completed: Neck: Soft Tissue Neck SIGNATURE: lam5 PATIENT NAME: Kaylah Hobson DATE: May 23, 2021 TIME: 7:12 PM [facility] MRI NECK SOFT TISSUE WO/W IV CONon 05-23-2021 MRI NECK SOFT TISSUE WO/W IVCON * * *Final Report* * * DATE OF EXAM: May 23 2021 7:26PM [facility] 0308 - MRI NECK SOFT TISSUE WO/W IVCON / PROCEDURE REASON: R22.1-Localized swelling, mass or lump of neck * * * * Physician Interpretation * * * * MRI NECK SOFT TISSUE WO/W IVCON HISTORY: Localized swelling, mass or lump of neck, venolymphatic malformation TECHNIQUE: MRI neck soft tissues without and with contrast. MR Contrast: Dotarem Contrast Dose: 20 cc Route of Administration: IV COMPARISON: MRI neck 03/05/2011, CT neck 03/04/2011 RESULT: Lymph nodes: No cervical lymphadenopathy by size, number or morphologic criteria. Small nonspecific lymph nodes are scattered throughout the neck. Aerodigestive tract: The oral cavity is partially obscured by artifact from dental amalgam. The nasal cavities, naso-oropharynx, pharyngeal mucosal space, laryngeal structures and imaged infraglottic trachea are within normal limits. Major salivary glands: Within normal limits. Thyroid gland: Within normal limits. Carotid space: Flow voids appear maintained in the major vessels of the neck. Intracranial contents: Imaged portions within normal limits. Paranasal sinuses, middle ears, mastoids: Clear. Orbits: Within normal limits. Bones/soft tissues: No evidence of abnormal marrow replacement in the imaged calvarium, skull base and spine. Postoperative changes of prior anterior cervical spinal fusion of C5-C7 with straightening of the cervical lordosis. Moderate spinal canal and severe bilateral foraminal narrowing at C3-C4, mild spinal canal and left foraminal narrowing at C4-C5, and mild spinal canal and left foraminal narrowing at C6-C7. Redemonstration of T2 hyperintense lesion along the medial margin of the sternocleidomastoid muscle at the level IIb station which has the appearance of a tangle of vessels. This is decreased in size compared to 2012. Lungs: Imaged lungs appear clear. 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 Otherwise, no suspicious neck mass or cervical lymphadenopathy. 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 Date/Time: May 23 2021 7:28P Dictated by : HIRAM DIA DO This examination was interpreted and the report reviewed and electronically signed by: KIANA ALLISON MD on May 23 2021 7:59PM EST [id number] [facility] MRI SOFT TISSUE NECK WO/W IV CONon 05-23-2021 [facility] Urgent Care Visit Reporton 1 Urgent Care Visit Report [facility] [address] [place] [address] OFFICE VISIT Date of Service: 02/06/21 MR#: [id number] Acct: [id number] Name: KAYLAH HOBSON Rep #: [id number] : 1965 Provider: MILO petty Age/Sex: 55/M Location: [facility] Status: Signed Intake Vital Signs 02/06/21 10:53 Height 5 ft 10 in Weight: 336 lb 2 oz BMI 48.2 BP 138/92 H Blood Pressure Location Lt brachial Position Sitting Respiration 18 Pulse 69 Pulse Source Monitor Temp 98.0 F Temp Source Temporal Pulse Oximetry (%) 97 Oxygen Delivery Method room air Intake Visit Reasons: SYMPTOMS WANTS COVID TEST Allergies No Known Allergies Allergy (Verified 02/06/21 10:54) Medications Ibuprofen [Motrin] 800 mg PO TID #20 tab 01/03/17 [Rx Confirmed 02/06/21] diazepam 5 mg PO Q8 PRN #15 tab 01/03/17 [Rx Confirmed 02/06/21] oxycodone 5 mg PO Q6H PRN PRN #16 tablet 01/03/17 [Rx Confirmed 02/06/21] levothyroxine 75 mcg tablet tablet PO 02/06/21 [History Confirmed 02/06/21] rosuvastatin 20 mg tablet ea PO 02/06/21 [History Confirmed 02/06/21] [facility] Medical History (Updated 02/06/21 @ 11:37 by Nura PEDRAZA, PA) Encounter for screening for COVID-19 Surgical History (Updated 02/06/21 @ 10:54 by Sherly Mckinney) History of fusion of cervical spine Social History (Updated 02/06/21 @ 10:55 by Sherly Mckinney) Smoking Status: Never smoker alcohol intake: current alcohol intake frequency: a few times a week HPI HPI Details: KAYLAH HOBSON, is a 55 M who presents to the office today for 3 day h/o fatigue w/ cough, congestion/ runny nose. COVID19 vaccine and booster utd. Recent +COVID19 exposure. Cigar smoker. No otc products to assist. No other c/o at this time. ROS Const Constitutional: No other (as above) Exam Const General: cooperative, healthy appearing, comfortable and no acute distress Nutritional Appearance: well nourished and obese Orientation: alert, awake and oriented x3 HENMT Head: normal to inspection Ears: hearing grossly normal bilaterally, external ears normal, TM's normal bilaterally and EAC's normal Nose: external nose normal, nares normal, septum normal and no nasal discharge Face and sinus: normal facial exam, sinuses nontender and face symmetric Mouth: oral mucosae normal, lip normal, tongue normal and moist mucous membranes Throat: posterior oropharynx normal, tonsils normal, uvula midline and no postnasal drainage Eyes General: appearance normal, both eyes and all related structures Neck Neck: normal visual inspection, full ROM, no lymphadenopathy, no meningeal signs and supple Neck mass: No Thyroid: thyroid normal Lymphatic: no lymphadenopathy noted Chest Chest palpation inspection: normal inspection of the chest Resp Effort Inspection: normal respiratory effort, able to speak in complete sentences, symmetric chest movement and no cough Auscultation: Bilateral: Clear to Auscultation Cardio Palpation: normal PMI Rate: regular rate Rhythm: regular rhythm Heart Sounds: S1 normal, S2 normal, no gallops, no murmurs and no rubs Pulses: radial pulses present GI Inspection: large pannus Skin General: no rashes or lesions noted Neuro General: patient alert, patient awake, patient oriented x3 and gait normal Cognition: normal cognition Speech: speech normal Gait: normal gait Motor: muscle tone normal throughout Sensory Exam: no sensory deficits noted Psych Appearance: grossly normal Mental Status: mental status grossly normal Mood: congruent mood Affect: normal affect Speech and Movement: speech and movement normal Attitude: cooperative Thought Process: normal Thought Content: normal Judgment: judgment good Results POC SARS AG POC SARS AG Negative Last Edit by Sherlydeisy Mckinney on 02/06/21 11:01 Coding Level of Care Code Off vis,new,level 2 Diagnoses Encounter for screening for COVID-19 Z11.52 Assessment and Plan Assessment and Plan (1) Encounter for screening for COVID-19: Status: Acute Plan - Nura PEDRAZA PA: POC COVID-19 screening in office today. Copy of results offered in office today. Supportive measures as instructed today. Follow-up with PCP in 5 to 7 days should symptoms not improve, ED sooner should symptoms worsen or any other concerns develop. Patient states acknowledging understanding all the above. This note was generated with Uni2 dictation software. It may contain incorrect words, spelling, and punctuation that were not noted in checking the note before signing. Plan Details Other Orders: Orders: POC Rapid SARS Antigen Today 02/06/21 1138 Date Nura PEDRAZA Cosigner Signature: Date (more content not included)... Normal [facility] Vital Signs Date Time Vital Sign Value Performing Clinician Facility 08-10-2024 10:24-0400 Diastolic blood pressure 83 mm[Hg] Aurora Hahn PA-C Work Phone: [facility] Comment on above: repeat with bp machine 08-10-2024 10:24-0400 Heart rate 76 /min Aurora Hahn PA-C Work Phone: [facility] 08-10-2024 10:24-0400 Systolic blood pressure 136 mm[Hg] Aurora Hahn PA-C Work Phone: [facility] Comment on above: repeat with bp machine 08-10-2024 09:39-0400 Body height 173.5 cm Aurora Hahn PA-C Work Phone: [facility] 08-10-2024 09:39-0400 Body mass index (BMI) [Ratio] 54.25 kg/m2 Auroradulce Hahn PA-C Work Phone: [facility] 08-10-2024 09:39-0400 Body temperature 97.39 [degF] Auroradulce Hahn PA-C Work Phone: [facility] 08-10-2024 09:39-0400 Body weight 163.29 kg Auroradulce Hahn PA-C Work Phone: [facility] 08-10-2024 09:39-0400 Respiratory rate 18 /min Auroradulce Hahn PA-C Work Phone: [facility] 08-10-2024 09:39-0400 SaO2% (BldA) [Mass fraction] 94 % Aurora Hahn PA-C Work Phone: [facility] 07-02-2023 11:47-0400 Body mass index (BMI) [Ratio] 54.41 kg/m2 Radha Santoro APRN.WHITE WASHER Work Phone: [facility] 07-02-2023 11:47-0400 Body weight 162.84 kg Radha Santoro APRN.WHITE WASHER Work Phone: [facility] 07-02-2023 11:47-0400 Diastolic blood pressure 85 mm[Hg] Radha Santoro APRN.WHITE WASHER Work Phone: [facility] 07-02-2023 11:47-0400 Heart rate 78 /min Radha Santoro APRN.WHITE WASHER Work Phone: [facility] 07-02-2023 11:47-0400 Respiratory rate 16 /min Radha Santoro APRN.WHITE WASHER Work Phone: [facility] 07-02-2023 11:47-0400 Systolic blood pressure 143 mm[Hg] Radha Santoro APRN.WHITE WASHER Work Phone: [facility] 11-14-2022 10:01-0400 Body temperature 97.5 [degF] Aurora Hahn PA-C Work Phone: [facility] 11-14-2022 10:01-0400 Body weight 160.57 kg Aurora Hahn PA-C Work Phone: [facility] 11-14-2022 10:01-0400 Diastolic blood pressure 80 mm[Hg] Aurora Hahn PA-C Work Phone: [facility] 11-14-2022 10:01-0400 Heart rate 77 /min Aurora Hahn PA-C Work Phone: [facility] 11-14-2022 10:01-0400 Respiratory rate 18 /min Aurora Hahn PA-C Work Phone: [facility] 11-14-2022 10:01-0400 Systolic blood pressure 120 mm[Hg] Aurora Hahn PA-C Work Phone: [facility] 05-23-2022 14:05-0400 Body weight 156.49 kg Josué Das MD Work Phone: [facility] 05-23-2022 14:05-0400 Diastolic blood pressure 78 mm[Hg] Josué Das MD Work Phone: [facility] 05-23-2022 14:05-0400 Heart rate 76 /min Josué Das MD Work Phone: [facility] 05-23-2022 14:05-0400 Respiratory rate 18 /min Josué Das MD Work Phone: [facility] 05-23-2022 14:05-0400 SaO2% (BldA) [Mass fraction] 96 % Josué Das MD Work Phone: [facility] 05-23-2022 14:05-0400 Systolic blood pressure 120 mm[Hg] Josué Das MD Work Phone: [facility] 10-21-2021 12:01-0400 Body height 173 cm Aurora Hahn PA-C Work Phone: [facility] 10-21-2021 12:01-0400 Body temperature 97.3 [degF] Aruora Hahn PA-C Work Phone: [facility] 10-21-2021 12:01-0400 Body weight 157.85 kg Aurora Hahn PA-C Work Phone: [facility] 10-21-2021 12:01-0400 Diastolic blood pressure 78 mm[Hg] Aurora Hahn PA-C Work Phone: [facility] 10-21-2021 12:01-0400 Heart rate 88 /min Aurora Hahn PA-C Work Phone: [facility] 10-21-2021 12:01-0400 Respiratory rate 18 /min Aurora Hahn PA-C Work Phone: [facility] 10-21-2021 12:01-0400 Systolic blood pressure 126 mm[Hg] Aurora Hahn PA-C Work Phone: [facility] 06-17-2021 09:00-0400 Body temperature 97.39 [degF] Chalo Seay MD Work Phone: [facility] 06-17-2021 09:00-0400 Body weight 154.04 kg Chalo Seay MD Work Phone: [facility] 06-17-2021 09:00-0400 Diastolic blood pressure 80 mm[Hg] Chalo Seay MD Work Phone: [facility] 06-17-2021 09:00-0400 Heart rate 69 /min Chalo Seay MD Work Phone: [facility] 06-17-2021 09:00-0400 Respiratory rate 18 /min Chalo Seay MD Work Phone: [facility] 06-17-2021 09:00-0400 SaO2% (BldA) [Mass fraction] 97 % Chalo Seay MD Work Phone: [facility] 06-17-2021 09:00-0400 Systolic blood pressure 110 mm[Hg] Chalo Seay MD Work Phone: [facility] Encounters Encounter Date Encounter Type Care Provider Facility Start: 08-10-2024 Encounter for genera l adult medical examination without abnormal findings AURORA HAHN [facility] Start: 08-10-2024 End: 08-10-2024 Patient encounter procedure Aurora Hahn PA-C Work Phone: [facility] [place] Comment on above: Well adult exam (Mayra fawn Dx); Acquired hypothyroidism; Morbid obesity with BMI of 50.0-59.9, adult (HCC); Elevated glucose; Obstructive sleep apnea syndrome; Recurrent major depressive disorder, in remission; Encounter for screening examination for other mental health and behavioral disorders Start: 08-10-2024 End: 08-10-2024 Patient encounter status Aurora Hahn PA-C Work Phone: [facility] Work Phone: Start: 08-10-2024 End: 08-10-2024 ambulatory AURORA HOULKA Facility:[facility] Start: 08-08-2024 End: 08-08-2024 Telephone encounter Vicente Castañeda MD Work Phone: Family [facility] [place] Comment on above: Orders Start: 08-08-2024 End: 08-08-2024 ambulatory [facility] Facility:[facility] Start: 01-14-2024 End: 01-14-2024 Refill Vicente Castañeda MD Work Phone: Family [facility] [place] Comment on above: Refill Request Start: 07-20-2023 End: 07-20-2023 ambulatory Greer Ayers PT [place] Comment on above: Vertigo Start: 07-02-2023 End: 07-02-2023 Patient encounter procedure Radha Santoro APRN.CNP Work Phone: [facility] [place] Comment on above: Vertigo (Primary Dx) ; Tinnitus of both ears Start: 06-29-2023 ambulatory Vicente anthony MD Work Phone: [facility] [place] Comment on above: Dizziness Start: 06-15-2023 Telephone encounter Vicente Castañeda MD Work Phone: [facility] [place] Comment on above: Results Start: 06-11-2023 End: 06-11-2023 Subsequent hospital visit by physician [facility] [place] Work Phone: Radiology Comment on above: Right knee pain, uns pecified chronicity [M25.561] Start: 06-08-2023 Telephone encounter Aurora hernandez PA-C Work Phone: [facility] [place] Comment on above: xray orders Start: 05-29-2023 ambulatory Aurora Wren on PA-C Work Phone: [facility] [place] Comment on above: Question regarding L IPID PANEL BASIC Start: 05-28-2023 Telephone encounter Vicente Castañeda MD Work Phone: [facility] [place] Comment on above: fasting lab orders Start: 11-14-2022 End: 11-14-2022 Patient encounter procedure Aurora Hahn PA-C Work Phone: [facility] [place] Comment on above: Well adult exam (Mayra fawn Dx); Hyperlipidemia, unspecified hyperlipidemia type; Acquired hypothyroidism; Obstructive sleep apnea syndrome; Screening for diabetes mellitus; Recurrent major depressive disorder, in remission (HCC); Morbid obesity (HCC); Right knee pain, unspecified chronicity Start: 11-14-2022 End: 11-14-2022 Patient encounter status Aurora Hahn PA-C Work Phone: [facility] Work Phone: Start: 10-26-2022 Telephone encounter Josué xie MD Work Phone: [facility] [place] Start: 10-21-2022 Refill Vicente anthony MD Work Phone: [facility] [place] Comment on above: Refill Request Start: 05-23-2022 End: 05-23-2022 Patient encounter procedure Josué Das MD Work Phone: [facility] [place] Comment on above: Bronchitis (Primary Dx); Lateral epicondylitis of left elbow; Right knee pain, unspecified chronicity; Acquired hypothyroidism; Hyperlipidemia, unspecified hyperlipidemia type Start: 05-06-2022 Refill Aurora moran PA-C Work Phone: [facility] [place] Comment on above: Refill Request Start: 01-29-2022 Refill Alexis shen MD Work Phone: Cardiology Comment on above: Refill Request Start: 10-22-2021 Telephone encounter Aurora PEDRAZA-C Work Phone: [facility] [place] Comment on above: Results Start: 10-21-2021 End: 10-21-2021 Patient encounter procedure Aurora Hahn PA-C Work Phone: [facility] [place] Comment on above: Well adult exam ([facility] Dx); Acquired hypothyroidism; Elevated glucose; Screening for diabetes mellitus; Obesity, Class III, BMI 40-49.9 (morbid obesity) (HCC); Need for hepatitis C screening test; Encounter for lipid screening for cardiovascular disease; Screening for prostate cancer; Obstructive sleep apnea syndrome; Recurrent major depressive disorder, in remission (HCC) Start: 10-21-2021 End: 10-21-2021 Patient encounter status Aurora Hahn PA-C Work Phone: [facility] [place] Start: 06-18-2021 Telephone encounter Aurora PEDRAZA-C Work Phone: [facility] [place] Comment on above: Results Start: 06-17-2021 Telephone encounter Vicente Castañeda MD Work Phone: [facility] [place] Comment on above: Future Appointment ( today - cough) Results Start: 06-17-2021 End: 06-17-2021 Subsequent hospital visit by physician [facility] [place] Work Phone: Radiology Comment on above: ov Start: 06-17-2021 End: 06-17-2021 Patient encounter procedure Chalo Seay MD Work Phone: [facility] [place] Comment on above: History of COVID-19 (Primary Dx); Productive cough Start: 06-12-2021 Telephone encounter Vicente Castañeda MD Work Phone: [facility] [place] Comment on above: COVID positive (home test) Start: 05-24-2021 Telephone encounter Aurora hernandez PA-C Work Phone: [facility] [place] Comment on above: Results Start: 05-23-2021 End: 05-23-2021 Subsequent hospital visit by physician [facility]ri [facility] (1.5t) Radiology Comment on above: Localized swelling, mass or lump of neck [R22.1] Start: 05-07-2021 End: 05-07-2021 Subsequent hospital visit by physician Mri [facility] Wstr (I-Stat/1.5t) Work Phone: Radiology Comment on above: Localized swelling, mass or lump of neck [R22.1] Start: 10-16-2020 End: 10-20-2024 Documentation procedure Alexis Bowman MD Work Phone: Cardiology Start: 10-16-2020 End: 10-20-2024 Letter encounter Alexis Bowman MD Work Phone: Cardiology Start: 10-09-2020 End: 10-20-2024 Documentation procedure Alexis Bowman MD Work Phone: Cardiology Start: 10-09-2020 End: 10-20-2024 Letter encounter Alexis Bowman MD Work Phone: Cardiology Start: 10-02-2020 Patient encounter status Mri ( I-Stat/1.5t) Work Phone: [facility] Work Phone: Procedures Date Procedure Procedure Detail Performing Clinician Start: 08-08-2024 Lipid 1995 panel - S francisco or Plasma Aurora Hahn PA-C Work Phone: Start: 06-11-2023 Radiologic exam knee complete 4/more views Aurora Hahn PA-C Work Phone: Start: 05-29-2023 Lipid 1995 panel - S francisco or Plasma Aurora Hahn PA-C Work Phone: Start: 10-21-2022 Lipid 1995 panel - S francisco or Plasma Josué Das MD Work Phone: Start: 10-21-2021 Lipid 1996 panel - S francisco or Plasma Vicente Castañeda MD Work Phone: Start: 06-17-2021 Radiologic exam ches t 2 views Chalo Seay MD Work Phone: Start: 05-23-2021 Mri orbit face & nec k w/o & w/contrast matrl Aurora Hahn PA-C Work Phone: Start: 01-28-2019 Colonoscopy Mri (I-Sta t/1.5t) Work Phone: Plan of Treatment Date Care Activity Detail Author Start: 10-02-2030 Urine microalbumin profile [facility] Start: 08-08-2029 Lipid panel Lipid Screening [place] Start: 01-28-2029 Colonoscopy COLONOSCOPY [facility] Start: 01-28-2029 COLORECTAL CANCER SCREENING COLORECTAL CANCER SCREENING [facility] Start: 01-28-2029 Screening for malign ant neoplasm of colon [facility] Start: 05-28-2028 Lipid panel Lipid Screening [place] Start: 10-22-2027 Lipid 1996 panel - Serum or Plasma Lipid Screening [facility] Start: 10-22-2027 Lipid panel Lipid Screening [place] Start: 08-09-2027 Diabetes Screening Diabetes Screenin g [facility] Start: 10-21-2026 Lipid 1996 panel - Serum or Plasma Lipid Screening [facility] Start: 10-21-2026 LIPID SCREEN LIPID SCREEN [facility] Start: 10-21-2026 PROSTATE CANCER SCREENING DISCUSSION PROSTATE CANCER SCREENING DISCUSSION [facility] Start: 10-21-2026 Prostate specific antigen measurement Prostate Cancer Screening Discussion [facility] Start: 06-17-2026 LIPID SCREEN LIPID SCREEN [facility] Start: 05-28-2026 Diabetes Screening Diabetes Screenin g [facility] Start: 10-21-2025 Diabetes Screening Diabetes Screenin g [facility] Start: 10-02-2025 LIPID SCREEN LIPID SCREEN [facility] Start: 08-10-2025 Annual PCP Team Paraprofessional Aide Teacher donna Disease Visit Annual PCP Team Chronic Disease Visit [facility] Start: 08-10-2025 Anxiety Screening Anxiety Screening [facility] Start: 08-10-2025 Covid-19 Vaccine ( season) Covid-19 Vaccine ( season) [facility] Comment on above: Postponed from 10/10 (Declined at this time) Start: 08-10-2025 Hepatitis B Vaccine (1 of 3 - 19+ 3-dose series) Hepatitis B Vaccine (1 of 3 - 19+ 3-dose series) [facility] Comment on above: Postponed from 03/15 (Declined at this time) Start: 08-10-2025 Pneumococcal Vaccine : 50+ (1 of 1 - PCV) Pneumococcal Vaccine: 50+ (1 of 1 - PCV) [facility] Comment on above: Postponed from 03/15 (Declined at this time) Start: 08-10-2025 End: 08-10-2025 Patient encounter procedure 08/10/2025 9:40 AM EDT Office Visit [facility] [place] [address] [place], [place] [id number] Aurora Hahn PA-C [address] [facility], [place] [id number] Physical [facility] [place] Comment on above: Physical Start: 08-08-2025 Prostate specific antigen measurement Prostate Cancer Screening Discussion [facility] Start: 10-21-2024 DIABETES SCREEN DIABETES SCREEN [place] Start: 10-21-2024 Diabetes Screening Diabetes Screenin g [facility] Start: 10-10-2024 Influenza vaccination [facility] Start: 08-10-2024 End: 08-10-2024 Patient encounter procedure 08/10/2024 9:40 AM EDT Office Visit [facility] [place] [address] [facility] [address] Aurora Hahn PA-C [address] [facility], [place] [id number] annual physical [facility] [place] Comment on above: annual physical Start: 08-08-2024 End: 11-07-2024 Comprehensive metabolic 2000 panel - Serum or Plasma [facility] Comment on above: Expected: 08/08/2024 , Expires: 11/07/2024 Start: 08-08-2024 End: 11-07-2024 LIPID PANEL, NONFASTING [facility] Work Phone: Comment on above: Expected: 08/08/2024 , Expires: 11/07/2024 Start: 08-08-2024 End: 11-07-2024 Prostate specific Ag [Mass/volume] in Serum or Plasma [facility] Comment on above: Expected: 08/08/2024 , Expires: 11/07/2024 Start: 08-08-2024 End: 11-07-2024 Thyrotropin [Units/volume] in Serum or Plasma [facility] Comment on above: Expected: 08/08/2024 , Expires: 11/07/2024 Start: 07-01-2024 Annual PCP Team Paraprofessional Aide Teacher donna Disease Visit Annual PCP Team Chronic Disease Visit [facility] Start: 11-19-2023 End: 11-19-2023 Patient encounter procedure 11/19/2023 10:20 AM EDT Office Visit [facility] [place] [address] [place] [address] Aurora Hahn PA-C [address] [facility] [place], [place] [id number] physical [facility] [place] Comment on above: physical Start: 11-17-2023 End: 11-17-2023 Patient encounter procedure 11/17/2023 10:20 AM EDT Office Visit [facility] [place] [address] [place] [address] Aurora Hahn PA-C [address] [facility], [place] [id number] physical [facility] [place] Comment on above: physical Start: 11-15-2023 Annual PCP Team Paraprofessional Aide Teacher donna Disease Visit Annual PCP Team Chronic Disease Visit [facility] Start: 11-15-2023 Covid-19 Vaccine () Covid-19 Vaccine () [facility] Comment on above: Postponed from 10/10 (Declined at this time) Start: 11-15-2023 Covid-19 Vaccine (4 - Pfizer series) Covid-19 Vaccine (4 - Pfizer series) [facility] Comment on above: Postponed from 02/04 (Declined at this time) Start: 10-11-2023 Covid-19 Vaccine ( season) Covid-19 Vaccine () [facility] Start: 10-11-2023 Covid-19 Vaccine () Covid-19 Vaccine () [facility] Start: 10-11-2023 Influenza vaccination [facility] Start: 10-03-2023 DIABETES SCREEN DIABETES SCREEN [place] Start: 08-09-2023 Influenza vaccination Influenza Vacc ine (#1) [facility] Comment on above: Postponed from 10/10 (Declined at this time) Start: 08-01-2023 End: 10-31-2023 Thyrotropin [Units/volume] in Serum or Plasma THYROID STIMULATING HORMONE Lab Routine Acquired hypothyroidism Expected: 08/01/2023, Expires: 10/31/2023 [facility] Work Phone: Comment on above: Expected: 08/01/2023 , Expires: 10/31/2023 Start: 07-20-2023 End: 07-20-2023 ambulatory 07/20/2023 8:00 AM EDT OT/PT/Speech Visit [facility] [address] [place] [address] Greer Ayers, PT [place] [R42] [facility] Comment on above: [place] [R42] Start: 07-02-2023 End: 07-02-2023 Patient encounter procedure 07/02/2023 11:40 AM EDT Office Visit Family [facility] [place] [address] [place] [address] Aurora Hahn PA-C [address] [place] [address] [place], see Triage 06/29/23. [facility] [place] Comment on above: [place], see Triage 06/29/23. Start: 05-28-2023 End: 08-27-2023 Hemoglobin A1c in Blood HEMOGLOBIN A1C Lab Routine Elevated glucose Expected: 05/28/2023, Expires: 08/27/2023 [facility] Work Phone: Comment on above: Expected: 05/28/2023 , Expires: 08/27/2023 Start: 05-28-2023 End: 08-27-2023 Lipid 1996 panel - Serum or Plasma LIPID PANEL BASIC Lab Routine Abnormal nuclear stress test Obesity, Class III, BMI 40-49.9 (morbid obesity) (HCC) Expected: 05/28/2023, Expires: 08/27/2023 [facility] Work Phone: Comment on above: Expected: 05/28/2023 , Expires: 08/27/2023 Start: 05-28-2023 End: 08-27-2023 Thyrotropin [Units/volume] in Serum or Plasma THYROID STIMULATING HORMONE Lab Routine Acquired hypothyroidism Expected: 05/28/2023, Expires: 08/27/2023 [facility] Work Phone: Comment on above: Expected: 05/28/2023 , Expires: 08/27/2023 Start: 05-24-2023 ANNUAL PCP TEAM MARINE ENGINE DRIVER DONNA DISEASE VISIT ANNUAL PCP TEAM CHRONIC DISEASE VISIT [facility] Start: 01-09-2023 End: 03-11-2023 Hemoglobin A1c in Blood HGB A1C Lab Routine Screening for diabetes mellitus Expected: 01/09/2023, Expires: 03/11/2023 [facility] Work Phone: Comment on above: Expected: 01/09/2023 , Expires: 03/11/2023 Start: 01-09-2023 End: 03-11-2023 Thyrotropin [Units/volume] in Serum or Plasma TSH BLD Lab Routine Acquired hypothyroidism Expected: 01/09/2023, Expires: 03/11/2023 [facility] Work Phone: Comment on above: Expected: 01/09/2023 , Expires: 03/11/2023 Start: 10-21-2022 ANNUAL PCP TEAM MARINE ENGINE DRIVER DONNA DISEASE VISIT ANNUAL PCP TEAM CHRONIC DISEASE VISIT [facility] Start: 10-10-2022 Influenza vaccination [facility] Start: 08-22-2022 End: 10-22-2022 Comprehensive metabolic 2000 panel - Serum or Plasma COMP METABOLIC PANEL Lab Routine Hyperlipidemia, unspecified hyperlipidemia type Expected: 08/22/2022 (Approximate), Expires: 10/22/2022 [facility] Work Phone: Comment on above: Expected: 08/22/2022 (Approximate), Expires: 10/22/2022 Start: 08-22-2022 End: 10-22-2022 Lipid 1996 panel - Serum or Plasma LIPID PANEL BASIC Lab Routine Hyperlipidemia, unspecified hyperlipidemia type Expected: 08/22/2022 (Approximate), Expires: 10/22/2022 [facility] Work Phone: Comment on above: Expected: 08/22/2022 (Approximate), Expires: 10/22/2022 Start: 08-22-2022 End: 10-22-2022 Thyrotropin [Units/volume] in Serum or Plasma TSH BLD Lab Routine Acquired hypothyroidism Expected: 08/22/2022 (Approximate), Expires: 10/22/2022 [facility] Work Phone: Comment on above: Expected: 08/22/2022 (Approximate), Expires: 10/22/2022 Start: 06-17-2022 ANNUAL PCP TEAM MARINE ENGINE DRIVER DONNA DISEASE VISIT ANNUAL PCP TEAM CHRONIC DISEASE VISIT [facility] Start: 04-19-2022 ANNUAL PCP TEAM MARINE ENGINE DRIVER DONNA DISEASE VISIT ANNUAL PCP TEAM CHRONIC DISEASE VISIT [facility] Start: 10-21-2021 End: 12-21-2021 CBC W Auto Differential panel - Blood [facility] Work Phone: Comment on above: Expected: 10/21/2021 , Expires: 12/21/2021 Start: 10-21-2021 End: 12-21-2021 Comprehensive metabolic 2000 panel - Serum or Plasma [facility] Work Phone: Comment on above: Expected: 10/21/2021 , Expires: 12/21/2021 Start: 10-21-2021 End: 12-21-2021 Hemoglobin A1c in Blood [facility] Work Phone: Comment on above: Expected: 10/21/2021 , Expires: 12/21/2021 Start: 10-21-2021 End: 12-21-2021 Hepatitis C virus Ab [Presence] in Serum [facility] Work Phone: Comment on above: Expected: 10/21/2021 , Expires: 12/21/2021 Start: 10-21-2021 End: 12-21-2021 LIPID PANEL, NONFASTING [facility] Work Phone: Comment on above: Expected: 10/21/2021 , Expires: 12/21/2021 Start: 10-21-2021 End: 12-21-2021 Prostate specific Ag [Mass/volume] in Serum or Plasma [facility] Work Phone: Comment on above: Expected: 10/21/2021 , Expires: 12/21/2021 Start: 10-21-2021 End: 12-21-2021 Thyrotropin [Units/volume] in Serum or Plasma [facility] Work Phone: Comment on above: Expected: 10/21/2021 , Expires: 12/21/2021 Start: 10-10-2021 Influenza vaccination C [facility] Start: 10-02-2021 HEPATITIS C SCREENING HEPATITIS C [facility] Comment on above: Postponed from 03/15 (Declined at this time) Start: 06-24-2021 End: 07-17-2022 Radiologic exam chest 2 views XR CHEST 2V FRONTAL/LAT Radiology Routine Productive cough Expected: 06/24/2021, Expires: 07/17/2022 [facility] Work Phone: Comment on above: Expected: 06/24/2021 , Expires: 07/17/2022 Start: 04-09-2021 COVID-19 VACCINE (4 - Booster for Pfizer series) COVID-19 VACCINE (4 - Booster for Pfizer series) [facility] Start: 02-04-2021 COVID-19 VACCINE (4 - Booster for Pfizer series) COVID-19 VACCINE (4 - Booster for Pfizer series) [facility] Start: 02-04-2021 Covid-19 Vaccine (4 - Pfizer series) Covid-19 Vaccine (4 - Pfizer series) [facility] Start: 10-10-2020 Influenza vaccination INFLUENZA (#1) [facility] Start: 2017 Pneumococcal Vaccine : 50+ (1 of 1 - PCV) Pneumococcal Vaccine: 50+ (1 of 1 - PCV) [facility] Start: 2012 COLOGUARD (FIT-DNA) COLOGUARD (FIT-D NA) [facility] Start: [address] COLONOGRAPHY [place] Start: 2012 FECAL OCCULT BLOOD FECAL OCCULT BLOO D [facility] Start: 2012 Screening for malign ant neoplasm of colon [facility] Start: 2012 SIGMOIDOSCOPY SIGMOIDOSCOPY [facility] Start: 1986 Hepatitis B Vaccine (1 of 3 - 19+ 3-dose series) Hepatitis B Vaccine (1 of 3 - 19+ 3-dose series) [facility] Start: 1986 ONE PNEUMOVAX PRIOR TO AGE 65 ONE PNEUMOVAX PRIOR TO AGE 65 [facility] Start: 1985 Anxiety Screening Anxiety Screening [facility] Start: 1985 HEPATITIS C SCREENING HEPATITIS C SC YOLI [facility] Start: 1967 HEPATITIS B (1 of 3 - 3-dose series) HEPATITIS B (1 of 3 - 3-dose series) [facility] Start: 1967 Hepatitis B Vaccine (1 of 3 - 3-dose series) Hepatitis B Vaccine (1 of 3 - 3-dose series) [facility] End: 07-08-2024 XR Knee - right 4 Views XR KNEE GENERAL 4V AP BOTH/PA BOTH/LAT/MERC RIGHT Radiology Routine Right knee pain, unspecified chronicity 1 Occurrences starting 06/09/2023 until 07/08/2024 [facility] Work Phone: Comment on above: 1 Occurrences starti ng 06/09/2023 until 07/08/2024 [facility] Immunizations Immunization Date Immunization Notes Care Provider Bradford forbes 04-19-2021 zoster vaccine recombinant Mri (I-Stat/1.5t) Work Phone: [facility] 12-10-2020 COVID-19 vaccine, ag e 12+ yr ([employer] - PURPLE TOP) Mri (I-Stat/1.5t) Work Phone: [facility] 10-02-2020 tetanus toxoid, redu ming diphtheria toxoid, and acellular pertussis vaccine, adsorbed Mri (I-Stat/1.5t) Work Phone: [facility] 10-02-2020 zoster vaccine recombinant Mri (I-Stat/1.5t) Work Phone: [facility] 04-28-2020 COVID-19 vaccine, ag e 12+ yr ([employer] - PURPLE TOP) Mri (I-Stat/1.5t) Work Phone: [facility] 04-07-2020 COVID-19 vaccine, ag e 12+ yr ([employer] - PURPLE TOP) Mri (I-Stat/1.5t) Work Phone: [facility] 11-19-2018 influenza virus vacc ine, unspecified formulation Vicente Castañeda MD Work Phone: [facility] 07-21-2008 tetanus toxoid, redu ming diphtheria toxoid, and acellular pertussis vaccine, adsorbed Mri (I-Stat/1.5t) Work Phone: [facility] Payers Date Payer Category Payer Private Health Insurance MMO SU[employer] PPO [id number] 2018 Unknown MMO MMO [employer] [id number] 2018-Present [phone] [address] [place] [address] PPO [id number] 2018 Unknown [id number] 2018 Unknown [id number] Social History Date Type Detail Facility Start: 02-11-1983 End: 02-12-1996 Tobacco smoking status NHIS Light tobacco smoker [facility] Start: 02-11-1983 End: 02-12-1996 History of tobacco use Cigarette Smoker [facility] Start: 07-05-2020 End: 11-13-2022 Cigarettes smoked current (pack per day) - Reported 1 [facility] Start: 07-05-2020 End: 08-10-2024 Tobacco use and exposure Smokeless tobacco non-user [facility] Start: 10-09-2020 End: 04-19-2021 Alcohol intake Current drinker of alcohol (finding) [facility] Start: 07-04-2020 History SDOH Alcohol Frequency 5 [facility] Start: 07-04-2020 End: 04-18-2021 History SDOH Alcohol Std Drinks 1 [facility] Start: 07-04-2020 End: 04-18-2021 History SDOH Alcohol Binge 2 [facility] Start: 07-04-2020 History SDOH Social Connections Get Together 4 [facility] Start: 07-04-2020 History SDOH Social Connections Living 3 [facility] Start: 07-04-2020 History SDOH Physical Activity DPW 0 [facility] Start: 07-03-2020 Education 15 [facility] Start: 07-05-2020 End: 10-21-2021 Tobacco Comment smokes cigars occasionally [facility] Start: 1965 Sex Assigned At Not on file [facility] Start: 04-09-2021 End: 10-21-2021 Exposure to SARS-CoV-2 (event) Not sure [facility] Start: 05-26-2021 End: 06-05-2021 Exposure to SARS-CoV-2 (event) Unable to assess [facility] Start: 10-21-2021 End: 08-10-2024 Tobacco smoking status NHIS Ex-smoker [facility] Work Phone: Start: 02-11-1983 End: 02-12-1996 History of tobacco use Current smoker [facility] Work Phone: Start: 07-03-2020 End: 11-13-2022 Social connection and isolation panel [facility] Do you belong to any clubs or organizations such as orthodoxy groups, unions, fraternal or athletic groups, or school groups? No [facility] Are you now , , , , never or living with a partner? [facility] How often to you hav e a drink containing alcohol? 4 or more times a week [facility] How many standard dr inks containing alcohol do you have on a typical day? 1 or 2 [facility] How often do you hav e 6 or more drinks on 1 occasion? Less than monthly [facility] Start: 01-11-2012 How hard is it for you to pay for the very basics like food, housing, medical care, and heating Not hard at all [facility] Do you feel stress - tense, restless, nervous, or anxious, or unable to sleep at night because your mind is troubled all the time - these days [OSQ] Not at all [facility] (I/We) worried jesica er (my/our) food would run out before (I/we) got money to buy more. Never true [facility] How often to you hav e a drink containing alcohol? 2-3 time week [facility] Start: 08-10-2024 Alcohol Comment or less [facility] Functional Status Date Assessment Result Facility 11-13-2022 Total score [AUDIT-C] 4 11/14/19 9:00 PM EDT User, Allyson [facility] 11-13-2022 How often to you hav e a drink containing alcohol? 2-3 times a week 11/13/2022 9:00 PM EDT User, Allyson 2-3 time sa week [facility] 11-13-[address] inks containing alcohol do you have on a typical day? 1 or 2 11/13/2022 9:00 PM EDT User, Allyson 1 or 2 [facility] 11-13-2022 How often do you hav e 6 or more drinks on 1 occasion? Less than monthly 11/13/2022 9:00 PM EDT User, Allyson Less than monthly [facility] 09-07-2021 Are you deaf, or do you have serious difficulty hearing No 10/16/2020 2:05 PM EDT Divina Hurtado RN No [facility] 10-16-2020 Are you blind, or do you have serious difficulty seeing, even when wearing glasses No 10/16/2020 2:05 PM EDT Divina Hurtado RN No [facility] 10-16-2020 Do you have serious difficulty walking or climbing stairs No 10/16/2020 2:05 PM EDDivina Nance RN No [facility] 10-16-2020 Do you have difficul ty dressing or bathing No 10/16/2020 2:05 PM Divina Barnhart RN No [facility] 10-16-2020 Because of a physica l, mental, or emotional condition, do you have difficulty doing errands alone such as visiting a physician's office or shopping No 10/16/2020 2:05 PM EDT Divina Hurtado RN No [facility] Mental Status Date Assessment Result Facility 10-16-2020 Because of a physica l, mental, or emotional condition, do you have serious difficulty concentrating, remembering, or making decisions No 10/16/2020 2:05 PM EDT Divina Hurtado RN No [facility] Clinical Notes 05-24-2008 to 08-10-2024 Aurora Hahn PA-C - 08/10/2024 9:51 AM EDTTelephone Encounter - Carlota Miranda LPN - 08/08/2024 9:19 AM EDTTelephone Encounter - Carlota Miranda LPN - 08/08/2024 9:19 AM EDT Note Date & Type Note Facility 08-10-2024 Note HNO ID: [id number] Author: AURORA HAHN PA-C Service: ? Author Type: Physician University Registrar Type: Progress Notes Filed: 08/10/2024 12:46 Note Text: Chief Complaint Patient presents with: Yearly Exam HPI Kaylah Hobson is a 59 year old male who presents here today for physical. Patient with hx of Hypothyroid, FREDRICK, elevated glucose, depression, obesity, and those as below. Annual Wellness Exam: - No significant medical or surgical changes since last visit. - Occasional cigar use. - Consumes approximately 12 beers per week; denies drug use, including marijuana. Weight Management: - Current weight: 360 lbs; weight in June 2023: 359 lbs. - Desires to lose weight through diet and exercise, but lacks motivation. - Diet high in carbohydrates, particularly breads; denies high sweets intake. - Drinks water, coffee, orange juice, iced tea, and beer. - Denies interest in weight loss surgery or medication. Prediabetes: - Recent labs show elevated A1c and fasting glucose of 139 mg/dL. - Kaylah believes he can manage blood sugar levels through diet and weight loss. - Denies interest in medication for blood sugar control. Concentration Issues: - Reports difficulty concentrating and brain fog over the past couple of years. - Describes inability to focus as overwhelming and affecting work performance. - Denies history of ADHD; refuses medication for concentration issues. Past medical history, appointments, medications, allergies reviewed. Previous Medical History PAST MEDICAL HISTORY Diagnosis Date Acquired hypothyroidism 01/22/2008 No longer on medication Cardiac dysrhythmia, unspecified 12/29/2007 ECG showed a single PVC in 12-17 Cervicalgia 02/20/2010 Foraminal stenosis of lumbar region 11/19/2018 Lumbago 02/20/2010 Obesity, Class III, BMI 40-49.9 (morbid obesity) ([facility]) 10/05/2007 Obstructive sleep apnea syndrome 02/16/2015 Other chronic sinusitis 1994 Recurrent major depressive disorder, in remission 10/05/2007 Appt with Chay Brian on 11-22-07 at [facility] Intolerant of Paxil as of 10-17: changed to a trial of Cymbalta Trial of qhs Cymbalta as of 10-17: if no ringing in the ears then will try once daily dosing after 2 weeks Appt 01-16 with physician at [facility]: work release granted until after his 01-24-08 appt with [facility] 01-16: clinically improving, no need for pharmacologic intervention Working p Spinal stenosis in cervical region 2004 Spondylosis Temporomandibular joint disorders, unspecified Previous Surgical History PAST SURGICAL HISTORY Procedure Laterality Date PAST SURGICAL HISTORY OF 2003 C5,6,7 fusion PAST SURGICAL HISTORY OF 1986 1990 TMJ PAST SURGICAL HISTORY OF 1992 sinus surgery PAST SURGICAL HISTORY OF 2004 ear surgery, left, cholesteatoma? Family History FAMILY HISTORY Adopted: Yes Problem Relation Age of Onset other (adopted) Other Patient Allergies ALLERGIES No Known Allergies Current Medications Current Outpatient Medications on File Prior to Visit Medication Sig levothyroxine (SYNTHROID) 75 mcg tablet Take 1 tablet by mouth once daily. Thursday-Thursday. Take 2 tablet on Thursday. Take on empty stomach. For Thyroid. rosuvastatin (CRESTOR) 20 mg tablet Take 1 tablet by mouth daily at bedtime. aspirin, enteric coated (ASPIRIN, ENTERIC COATED) 81 mg EC tablet Take 81 mg by mouth once daily. meclizine (ANTIVERT) 25 mg tab Take 1 tablet by mouth every 6 hours as needed (dizziness). (Patient not taking: Reported on 08/10/2024) fluticasone (FLONASE) 50 mcg/actuation nasal spray Use 2 Sprays in each nostril once daily. Rinse mouth after use. (Patient not taking: Reported on 08/10/2024) cyclobenzaprine (FLEXERIL) 10 mg tablet Take 1 tablet by mouth three times a day as needed for muscle spasm. (Patient not taking: Reported on 08/10/2024) meloxicam (MOBIC) 15 mg tablet Take 1 tablet by mouth once daily. Take with food. (Patient not taking: Reported on 08/10/2024) diclofenac (VOLTAREN) 1 % topical gel Apply 4 g to affected area four times daily. (Patient not taking: Reported on 08/10/2024) No current facility-administered medications on file prior to visit. Social History Social History Tobacco Use Smoking status: Former Current packs/day: 0.00 Average packs/day: 1 pack/day for 13.0 years (13.0 ttl pk-yrs) Types: Cigarettes Start date: 02/11/1983 Quit date: 02/12/1996 Years since quittin.5 Smokeless tobacco: Never Tobacco comments: smokes cigars occasionally Vaping Use Vaping status: Never Used Substance Use Topics Alcohol use: Yes Alcohol/week: 12.0 standard drinks of alcohol Types: 12 Cans of beer per week Comment: or less Drug use: No Review of Symptoms REVIEW OF SYSTEMS GENERAL: No weight loss, malaise or fevers HEENT: No changes in hearing or vision, no nose bleeds or other nasal problems NECK: Negative for lumps, goiter, pain and significant neck swelling RESPIRATORY (more content not included)... [facility] 08-10-2024 History of Presen t illness Narrative Chief Complaint Patient presents with: Yearly Exam HPI Kaylah Hobson is a 59 year old male who presents here today for physical. Patient with hx of Hypothyroid, FREDRICK, elevated glucose, depression, obesity, and those as below. Annual Wellness Exam: - No significant medical or surgical changes since last visit. - Occasional cigar use. - Consumes approximately 12 beers per week; denies drug use, including marijuana. Weight Management: - Current weight: 360 lbs; weight in June 2023: 359 lbs. - Desires to lose weight through diet and exercise, but lacks motivation. - Diet high in carbohydrates, particularly breads; denies high sweets intake. - Drinks water, coffee, orange juice, iced tea, and beer. - Denies interest in weight loss surgery or medication. Prediabetes: - Recent labs show elevated A1c and fasting glucose of 139 mg/dL. - Kaylah believes he can manage blood sugar levels through diet and weight loss. - Denies interest in medication for blood sugar control. Concentration Issues: - Reports difficulty concentrating and brain fog over the past couple of years. - Describes inability to focus as overwhelming and affecting work performance. - Denies history of ADHD; refuses medication for concentration issues. Past medical history, appointments, medications, allergies reviewed. Previous Medical History PAST MEDICAL HISTORY Diagnosis Date Acquired hypothyroidism 01/22/2008 No longer on medication Cardiac dysrhythmia, unspecified 12/29/2007 ECG showed a single PVC in 12-17 Cervicalgia 02/20/2010 Foraminal stenosis of lumbar region 11/19/2018 Lumbago 02/20/2010 Obesity, Class III, BMI 40-49.9 (morbid obesity) ([facility]) 10/05/2007 Obstructive sleep apnea syndrome 02/16/2015 Other chronic sinusitis 1994 Recurrent major depressive disorder, in remission 10/05/2007 Appt with Chay Brian on 11-22-07 at [facility] Intolerant of Paxil as of 10-17: changed to a trial of Cymbalta Trial of qhs Cymbalta as of 10-17: if no ringing in the ears then will try once daily dosing after 2 weeks Appt 01-16 with physician at [facility]: work release granted until after his 01-24-08 appt with me Psych 01-16: clinically improving, no need for pharmacologic intervention Working p Spinal stenosis in cervical region 2004 Spondylosis Temporomandibular joint disorders, unspecified Previous Surgical History PAST SURGICAL HISTORY Procedure Laterality Date PAST SURGICAL HISTORY OF 2003 C5,6,7 fusion PAST SURGICAL HISTORY OF 1986 1990 TMJ PAST SURGICAL HISTORY OF 1992 sinus surgery PAST SURGICAL HISTORY OF 2004 ear surgery, left, cholesteatoma? Family History FAMILY HISTORY Adopted: Yes Problem Relation Age of Onset other (adopted) Other Patient Allergies ALLERGIES No Known Allergies Current Medications Current Outpatient Medications on File Prior to Visit Medication Sig levothyroxine (SYNTHROID) 75 mcg tablet Take 1 tablet by mouth once daily. Thursday-Thursday. Take 2 tablet on Thursday. Take on empty stomach. For Thyroid. rosuvastatin (CRESTOR) 20 mg tablet Take 1 tablet by mouth daily at bedtime. aspirin, enteric coated (ASPIRIN, ENTERIC COATED) 81 mg EC tablet Take 81 mg by mouth once daily. meclizine (ANTIVERT) 25 mg tab Take 1 tablet by mouth every 6 hours as needed (dizziness). (Patient not taking: Reported on 08/10/2024) fluticasone (FLONASE) 50 mcg/actuation nasal spray Use 2 Sprays in each nostril once daily. Rinse mouth after use. (Patient not taking: Reported on 08/10/2024) cyclobenzaprine (FLEXERIL) 10 mg tablet Take 1 tablet by mouth three times a day as needed for muscle spasm. (Patient not taking: Reported on 08/10/2024) meloxicam (MOBIC) 15 mg tablet Take 1 tablet by mouth once daily. Take with food. (Patient not taking: Reported on 08/10/2024) diclofenac (VOLTAREN) 1 % topical gel Apply 4 g to affected area four times daily. (Patient not taking: Reported on 08/10/2024) No current facility-administered medications on file prior to visit. Social History Social History Tobacco Use Smoking status: Former Current packs/day: 0.00 Average packs/day: 1 pack/day for 13.0 years (13.0 ttl pk-yrs) Types: Cigarettes Start date: 02/11/1983 Quit date: 02/12/1996 Years since quittin.5 Smokeless tobacco: Never Tobacco comments: smokes cigars occasionally Vaping Use Vaping status: Never Used Substance Use Topics Alcohol use: Yes Alcohol/week: 12.0 standard drinks of alcohol Types: 12 Cans of beer per week Comment: or less Drug use: No Review of Symptoms REVIEW OF SYSTEMS GENERAL: No weight loss, malaise or fevers HEENT: No changes in hearing or vision, no nose bleeds or other nasal problems NECK: Negative for lumps, goiter, pain and significant neck swelling RESPIRATORY: Negative for cough, hemoptysis, wheezing, COPD, dyspnea or shortness of breath CARDIOVASCULAR: Negative for chest pain, leg swelling, CHF or palpitations GI: Negative for abdominal discomfort, blood in stools or black stools, change in bowel habit, heart burn, nausea, vomiting : No history of dysuria, frequency or incontinence MUSCULOSKELETAL: Negative for joint pain or swelling, back pain or muscle pain SKIN: Negative for lesions, rash, and itching HEMATOLOGY/LYMPHOLOGY: Negative for prolonged bleeding, bruising easily or swollen nodes ENDOCRINE: Negative for cold or heat intolerance, polyuria, polydipsia and goiter NEURO: No history of headaches, syncope, paralysis, seizures or tremors SEE HPI EXAM: BP 136/83 (BP Site: Left Arm, BP Position: Sitting, BP Cuff Size: Large Adult) Pulse 76 Temp 36.3 C (97.4 F) Resp 18 Ht 173.5 cm (5' 8.31) Wt (!) 163.3 kg (360 lb) SpO2 94% BMI 54.25 kg/m Last 3 Encounter Wt Readings: Date: Wt: 08/10/2024 163.3 kg (360 lb) 07/02/2023 162.8 kg (359 lb) 11/14/2022 160.6 kg (354 lb) General Appearance: Well appearing, alert, in no acute distress, well-hydrated, well nourished. and Morbidly obese. Skin: Skin color, texture, turgor normal, no suspicious rashes or lesions. Head: Normocephalic, no masses, lesions, tenderness or abnormalities. Eyes: Anicteric sclera. Pupils are equally round and reactive to light. Extraocular movements are intact. . Ears: External ears normal, canals clear. Nose/Sinuses: Nares normal, septum midline, mucosa normal, no drainage or sinus tenderness. Oropharynx: Lips, mucosa, and tongue normal, teeth and gums normal, oropharynx normal. Neck: Supple, no adenopathy; thyroid symmetric, normal size, no bruits. Lungs: Lungs clear to auscultation. No wheezing, rhonchi, rales.. Heart: RRR without murmur, gallop, or rubs. No ectopy. Abdomen: Normal abdominal exam, Abdomen soft, non-tender. Bowel sounds normal. No masses, organomegaly. Extremities: No deformities, edema, skin discoloration, clubbing or cyanosis. Good capillary refill. . Peripheral Pulses: Normal. Neurologic: Gait normal. Reflexes normal and symmetric. Sensation grossly intact.. Health Maintenance List Hepatitis B Vaccine(1 of 3 - 19+ 3-dose series) due on 08/10/2025 Covid-19 Vaccine( season) due on 08/10/2025 Pneumococcal Vaccine: 50+(1 of 1 - PCV) due on 08/10/2025 Influenza Vaccine(1) due on 10/10/2024 Prostate Cancer Screening Discussion due on 08/08/2025 Annual PCP Team Chronic Disease Visit due on 08/10/2025 Anxiety Screening due on 08/10/2025 Diabetes Screening due on 08/09/2027 Colorectal Cancer Screening due on 01/28/2029 Lipid Screening due on 08/08/2029 DTaP,Tdap,Td Vaccine(3 - Td or Tdap) due on 10/02/2030 Hepatitis C Screening Completed Shingrix Vaccine Completed HIV Screening Discontinued Data reviewed Latest Ref Rng 08/08/2024 WBC 3.70 - 11.00 k/uL 6.96 RBC 4.20 - 6.00 m/uL 5.69 Hemoglobin 13.0 - 17.0 g/dL 14.5 Hematocrit 39.0 - 51.0 % 47.7 MCV 80.0 - 100.0 fL 83.8 MCH 26.0 - 34.0 pg 25.5 (L) MCHC 30.5 - 36.0 g/dL 30.4 (L) RDW-CV 11.5 - 15.0 % 14.8 Platelet Count 150 - 400 k/uL 282 MPV 9.0 - 12.7 fL 10.9 Neut% % 67.9 Abs Neut (ANC) 1.45 - 7.50 k/uL 4.72 Lymph% % 17.2 Abs Lymph 1.00 - 4.00 k/uL 1.20 Washburn% % 9.3 Abs Washburn <0.87 k/uL 0.65 Eosin% % 4.6 Abs Eosin <0.46 k/uL 0.32 Baso% % 0.7 Abs Baso <0.11 k/uL 0.05 Immature Gran % % 0.3 IMMATURE GRANS (ABS) <0.10 k/uL <0.03 NRBC /100 WBC 0.0 Absolute nRBC <0.01 k/uL <0.01 DTYPE Auto Protein, Total 6.3 - 8.0 g/dL 7.4 Albumin 3.9 - 4.9 g/dL 4.1 Calcium 8.5 - 10.2 mg/dL 9.2 Bilirubin, Total 0.2 - 1.3 mg/dL 0.3 Alkaline Phosphatase 38 - 113 U/L 102 AST 14 - 40 U/L 27 ALT 10 - 54 U/L 21 Glucose 74 - 99 mg/dL 139 (H) BUN 9 - 24 mg/dL 11 Creatinine 0.73 - 1.22 mg/dL 0.97 Sodium 136 - 144 mmol/L 139 Potassium 3.7 - 5.1 mmol/L 4.6 Chloride 98 - 107 mmol/L 105 CO2 22 - 30 mmol/L 22 Anion Gap 8 - 15 mmol/L 12 eGFR >=60 mL/min/1.73m 91 Total Cholesterol, Nonfasting <200 mg/dL 114 Triglycerides, Nonfasting <150 mg/dL 103 HDL Cholesterol, Nonfasting >39 mg/dL 40 LDL Cholesterol Calculated, Nonfasting <100 mg/dL 55 Non HDL Cholesterol, Nonfasting <130 mg/dL 74 VLDL Cholesterol, Nonfasting <30 mg/dL 15 Total Chol/HDL Ratio, Nonfasting <5.10 mg/dL 2.85 LDL/HDL Ratio, Nonfasting <2.54 mg/dL 1.38 Hemoglobin A1C 4.3 - 5.6 % 6.3 (H) Estimated Average Glucose mg/dL 134 TSH 0.270 - 4.200 mIU/L 2.220 PSA <2.60 ng/mL 0.70 Legend: (L) Low (H) High Assessment and Plan 1. Well adult exam (Z00.00) - Conducted comprehensive physical examination; no acute abnormalities noted. - Reviewed lab results: PSA, thyroid function, and cholesterol levels are within normal limits. - Discussed vaccination options; patient declined pneumonia and hepatitis B vaccines. - Follow-up in one year for next annual physical exam. 2. Acquired hypothyroidism (E03.9) - Thyroid function tests are within normal range. - Continue current thyroid hormone replacement therapy. 3. Morbid obesity with BMI of 50.0-59.9, adult (HCC) (E66.01) - Current weight: 360 lbs; BMI indicates morbid obesity. - Discussed the importance of weight loss for overall health improvement. - Patient advised on dietary modifications, including reducing carbohydrate intake. - Encouraged regular physical activity. 4. Elevated glucose (R73.09) - Fasting glucose level: 139 mg/dL; A1c elevated, indicating pre-diabetes. - Educated patient on risks associated with elevated glucose levels, including progression to diabetes. - Emphasized the importance of dietary changes and weight loss to improve glucose control. - Patient prefers to manage glucose levels through lifestyle modifications rather than medication. 5. Obstructive sleep apnea syndrome (G47.33) - No new symptoms reported. - Continue current management with CPAP therapy. 6. Recurrent major depressive disorder, in remission (F33.40) - No current symptoms of depression reported. - Continue current management. 7. Encounter for screening examination for other mental health and behavioral disorders (Z13.39) - Patient reports difficulty with concentration and focus over the past couple of years. - Discussed potential causes and management strategies for improving concentration. - No further mental health disorders identified during this visit. 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 Patient/authorized containers sales representative agreed to proceed documented in this encounter [facility] 08-08-2024 Telephone encounter Note Pt notified orders have been placed. Carlota Miranda LPN [facility] 08-08-2024 Miscellaneous Notes Pt notified orders have been placed. Carlota Miranda LPN done Patient calling in. States he has a Physical scheduled with MILO Andrews tomorrow and asking if she would like to place lab orders this morning for him to complete today. Reports he has not ate anything yet. Please call patent with update. [phone] Jacqueline Cole RN documented in this encounter [facility] 08-08-2024 Telephone encounter Note done [facility] 08-08-2024 Telephone encounter Note Patient calling in. States he has a Physical scheduled with MILO Andrews tomorrow and asking if she would like to place lab orders this morning for him to complete today. Reports he has not ate anything yet. Please call patent with update. [phone] Jacqueline Cole RN [facility] 01-14-2024 Telephone encounter Note Pt states he is completely out of his medications, and he is going to be in [place] for 100 days. He would like it called to [facility] in [place] and they will send it to where ever is closest to him. The patient has been identified by name and date of : Yes Caregiver verified no other encounters exist for this prescription request: Yes Caregiver confirmed with patient/requestor that no other refills are due, in the near future, with this provider at this time: Yes The last office visit in the department: 07/02/2023 Does the patient have a future office visit with this provider/department: No Visit date not found Requested Prescriptions Pending Prescriptions Disp Refills levothyroxine (SYNTHROID) 75 mcg tablet 102 tablet 3 Sig: Take 1 tablet by mouth once daily. Thursday-Thursday. Take 2 tablet on Thursday. Take on empty stomach. For Thyroid. rosuvastatin (CRESTOR) 20 mg tablet 90 tablet 3 Sig: Take 1 tablet by mouth daily at bedtime. Jacy Dey RN January 14, 2024 3:29 PM [facility] 01-14-2024 Miscellaneous Notes Pt states he is completely out of his medications, and he is going to be in [place] for 100 days. He would like it called to [facility] in [place] and they will send it to where ever is closest to him. The patient has been identified by name and date of : Yes Caregiver verified no other encounters exist for this prescription request: Yes Caregiver confirmed with patient/requestor that no other refills are due, in the near future, with this provider at this time: Yes The last office visit in the department: 07/02/2023 Does the patient have a future office visit with this provider/department: No Visit date not found Requested Prescriptions Pending Prescriptions Disp Refills levothyroxine (SYNTHROID) 75 mcg tablet 102 tablet 3 Sig: Take 1 tablet by mouth once daily. Thursday-Thursday. Take 2 tablet on Thursday. Take on empty stomach. For Thyroid. rosuvastatin (CRESTOR) 20 mg tablet 90 tablet 3 Sig: Take 1 tablet by mouth daily at bedtime. Jacy Dey RN January 14, 2024 3:29 PM documented in this encounter [facility] 07-20-2023 History of Presen t illness Narrative Program_ID:[id number] Access Code: [email or web address] URL: [email or web address] Date: 07-20-2023 Prepared By: Greer Ayers Program Notes Patient Education - What Is The Vestibular System? - What Is Vestibular Rehab? - Vestibular Migraine - What Is BPPV? - BPPV Images from the original note were not included. Episode Visit Count: 1 Therapist That Will Accept/Oversee The Plan Of Care: Greer Ayers Start of Care Date: 07/20/23 Onset Date: 01/18/23 Plan of Care Certification Date: 07/20/23 Next Certification Due Date: 08/31/23 Patient Identified by Name and Date of : Yes REHABILITATION AND SPORTS THERAPY PHYSICAL THERAPY EVALUATION PLAN OF CARE: Assessment: Kaylah Hobson presents with diagnosis of vertigo that interferes with bending, rising from a chair, walking (laying) . He presents with impairments in ADL's, balance, independence in exercise, overall function, patient reported outcome measures, sensation, symptom management, and tissue tenderness. PROMIS (Patient-Reported Outcomes Measurement Information System) scores were reviewed and identified as a rehabilitation concern. Prognosis for therapy is Good due to: current objective clinical presentation, acuteness of condition, good support system/ coping skills . He will benefit from skilled therapy services to meet the goals established for this plan of care as noted below. Goals for Episode of Care: created on 07/20/23 through 08/31/23 Patient will have negative positional testing for BPPV. Patient will verbalize the understanding of the diagnosis BPPV, how to recognize symptoms and what to do if they return. Patient will demonstrate normal active cervical spine range of motion to restore posture and complete ADLS with trace report of dizziness/imbalance. Patient will be independent with home exercise program and progression. Patient will deny dizziness with lying down, looking up, bending, walking, and standing. Patient will be able to walk household and community distances with safe, functional gait pattern with trace report of dizziness/imbalance. Patient Goals: resolve dizziness and haed Planned Interventions, Frequency, and Duration: Current Frequency: 1x/week Duration: 6 weeks Total Number of Visits Planned: 6 Planned Treatment Interventions: Gait Training (30912), Self-mcc management (87119), Therapeutic activities (10130), Manual therapy (40471), Neuromuscular re-education (58175), Therapeutic exercise (27798) PLAN FOR NEXT VISIT: assess symptom response to R nathan for R posterior canalithiasis Patient demonstrates good understanding of plan of care and treatment. The above goals and plan of care were discussed and agreed upon by patient/family. SUBJECTIVE: for imbalance with rising and looking down with walking. Eustachian Patient Goals: resolve dizziness and haed Functional Limitations: bending, rising from a chair, walking (laying) Prior Level of Function: Independent without limitations Intake Information: Prescription present Falls Interview: No positive findings with falls interview Concussion History of Concussion: No Vestibular Symptoms present for: months Symptom onset: sudden Dizziness: Yes Description: spinning (room) Rating of current symptoms: 0/10 Frequency: Intermittent Duration: seconds Symptoms worsened by: lying down, bending, when on the move (looking down) Symptoms improved by: being still Imbalance: Yes Imbalance triggered by: Head movement Imbalance Comments: with head movement and dark Fall Assessment: No falls Nausea: no Motion Sickness: None Headache: No Neck Symptoms: Yes Description: aching Rating of current symptoms: (does not rate) Location: posterior neck (chronic) Location comment: upper thoracic spine Duration: all the time Symptoms worsened by: driving, rotational movements of the head Jaw Symptoms: No ('87 TMJ surgery, mentions toxic implant) Ear Symptoms: Yes Description: (popping frequently) Rating of current symptoms: 0/10 Location: both ears equally Hearing Changes: both ears equally Hearing Changes Description: does not wear hearing aides Tinnitus: both ears equally (chronic) Tinnitus Description: ringing Tinnitus Frequency: Constant Sleep Affected by Symptoms: not affected by pain, Not affected by dizziness History of Syncope: No History of Migraine: No (describes ocular events that happen infrequently. Feels hungover and exhausted after -- it's only happened 3x) Denies: focal weakness, neuropathy, paresthesia, neurological complaints, headaches, tremors Reports: dizziness, visual changes Pain: Pain Pain Level: 0 Post Treatment Pain Post Treatment Symptoms: feels hung over PROMIS Scales 07/20/2023 Higher is Better Phys Func - Score 43 (mild dysfunction) Phys Func - Percentile 24 Self-Eff Symptom - Score 44 (Average) Self-Eff Symptom - Percentile 27 T-scores: mean of general population = 50. 5 points is clinically meaningfully difference Percentiles provide an indication of how the patient's score ranks in relation to the general population. Higher percentile rankings indicate better function/quality of life. 50th percentile is the average of the general population and indicates half of respondents had a worse score. OBJECTIVE MEASURES WITH LEVEL OF FUNCTION: Spine Observations R Cervical Spine Palpation Tenderness: Paraspinals, Upper trapezius L Cervical Spine Palpation Tenderness: Paraspinals, Upper trapezius Oculomotor Testing Fixation Present Ocular ROM: WNL Spontaneous Nystagmus: No nystagmus Gaze Evoked Nystagmus: Not Present Saccadic eye movements: Horizontal, vertical and oblique all WNL. Head Thrusts: Left positive VOR cancelation: Negative Convergence (Distance): <8 cm WNL VOR to slow head movements: Negative X1 Viewing - Horizontal: Pt. reports L sided dizziness. X1 Viewing - Vertical: Pt. reports double vision with looking down Cross Cover: Negative Oculomotor Testing Fixation Removed Spontaneous Nystagmus: No nystagmus Gaze Evoked Nystagmus: Not present Head Shake: Negative Positional Testing Right Abram-Hallpike: Right Torsional / Clockwise, Upbeat, Symptomatic, Less than 60 seconds, Without delay Positional Test Comments: R abram hallpike positive, therefore treated. Remaining positional tests to be completed if indicated next visit. Cervical Spine ROM Cervical ROM : Limitation AROM Cervical Flexion AROM: Increased dizziness, Normal Cervical Extension AROM: Minimal limitation, Increased pain Cervical Rotation Right AROM: Minimal limitation, Increased pain Cervical Rotation Left AROM: Moderate limitation, Increased pain Mobility Rolling: Independent Supine To Sit: Independent Sit to Supine: Independent Sit To Stand: Independent Stand To Sit: Independent Gait Gait Observation: unremarkable Education: Education Learning Preferences: Demonstration, Explanation, Performance, Printed Materials Barriers: Acuity of Illness Learning/educational needs: Posture, Home exercise program, Plan of Care Education Provided: Yes, see treatment interventions for education provided Education Provided To: Patient Education Mode/Type: Demonstration, Explanation/Discussion, Literature/Printed Materials, Performance Response to Education/Teach Back: States/Identifies, Return Demonstration TREATMENT: PT Treatment Interventions: Self-Custodial Management, Canalith Repositioning Evaluation Self-Custodial Management: 1: *Access Code: [email or web address] URL: [email or web address] Date: 07/20/2023 Prepared by: Greer Bright Patient Education - What Is The Vestibular System? - What Is Vestibular Rehab? - Vestibular Migraine - What Is BPPV? - BPPV Skilled Intervention: Skilled judgment in the selection of proper modification for activity of daily living/home management based on clinical presentation, deficits, and needs. Educated the patient regarding recommendations and provided written instruction to facilitate compliance. Provided written instruction for activities of daily living techniques to facilitate proper performance and compliance. Reviewed patient specific diagnosis in relation to activities of daily living/home management. Activity progression based on professional judgement. Provided written instruction for home program to facilitate proper performance and compliance. Correct performance of home program was facilitated with verbal cueing. Canalith Repositionin: nathan CRM for R posterior canalithiasis Skilled Intervention: Professional judgment was used to determine specific treatment interventions based on assessment of symptoms. Physically assisted patient through each step of repositioning. Verbal and tactile cues provided to patient to assist in moving between each position of maneuver in correct sequence. Patient education including handouts provided regarding self repostitioning techniques to be performed at home. Instructed patient in post repositioning procedures including keeping the head upright for 2 hours, sleeping on the L side x1 night only, and drinking plenty of H2O. . Billing * Evaluation Low Complexity: 1 Unit Self-Care/Home Management Treatment Minutes: 10 * Canalith Repositionin unit Skilled Treatment Time Minutes (timed and untimed codes): 45 Total Session Time (minutes): 45 Session Start Time : 075 Session Stop Time : 08 Physical Therapy Evaluation Greer Ayers PT documented in this encounter [facility] 07-02-2023 History of Presen t illness Narrative Chief Complaint Patient presents with: Dizziness HPI Kaylah Hobson is a 58 year old male who presents here today for Above Complaints.. Patient presents for dizziness. Patient reports it has been ongoing for weeks but over the past week. Patient reports he notices dizziness is worst with position/head movements. Past medical history, appointments, medications, allergies reviewed. Previous Medical History PAST MEDICAL HISTORY Diagnosis Date Acquired hypothyroidism 01/22/2008 No longer on medication Cardiac dysrhythmia, unspecified 12/29/2007 ECG showed a single PVC in 12-17 Cervicalgia 02/20/2010 Foraminal stenosis of lumbar region 11/19/2018 Lumbago 02/20/2010 Obesity, Class III, BMI 40-49.9 (morbid obesity) ([facility]) 10/05/2007 Obstructive sleep apnea syndrome 02/16/2015 Other chronic sinusitis 1995 Recurrent major depressive disorder, in remission ([facility]) 10/05/2007 Appt with Chay Brian on 11-22-07 at [facility] Intolerant of Paxil as of 10-17: changed to a trial of Cymbalta Trial of qhs Cymbalta as of 10-17: if no ringing in the ears then will try once daily dosing after 2 weeks Appt 01-16 with physician at [facility]: work release granted until after his 01-24-08 appt with [facility] 01-16: clinically improving, no need for pharmacologic intervention Working p Spinal stenosis in cervical region 2004 Spondylosis Temporomandibular joint disorders, unspecified Previous Surgical History PAST SURGICAL HISTORY Procedure Laterality Date PAST SURGICAL HISTORY OF 2003 C5,6,7 fusion PAST SURGICAL HISTORY OF 1986 1990 TMJ PAST SURGICAL HISTORY OF 1992 sinus surgery PAST SURGICAL HISTORY OF 2004 ear surgery, left, cholesteatoma? Family History FAMILY HISTORY Adopted: Yes Problem Relation Age of Onset other (adopted) Other Patient Allergies ALLERGIES No Known Allergies Current Medications Current Outpatient Medications on File Prior to Visit Medication Sig aspirin, enteric coated (ASPIRIN, ENTERIC COATED) 81 mg EC tablet Take 81 mg by mouth once daily. rosuvastatin (CRESTOR) 20 mg tablet Take 1 tablet by mouth daily at bedtime. levothyroxine (SYNTHROID) 75 mcg tablet Take 1 tablet by mouth once daily. Thursday-Thursday. Take 2 tablet on Thursday. Take on empty stomach. For Thyroid. cyclobenzaprine (FLEXERIL) 10 mg tablet Take 1 tablet by mouth three times a day as needed for muscle spasm. meloxicam (MOBIC) 15 mg tablet Take 1 tablet by mouth once daily. Take with food. diclofenac (VOLTAREN) 1 % topical gel Apply 4 g to affected area four times daily. No current facility-administered medications on file prior to visit. Social History Social History Tobacco Use Smoking status: Former Packs/day: 1.00 Years: 13.00 Additional pack years: 0.00 Total pack years: 13.00 Types: Cigarettes Quit date: 02/12/1996 Years since quittin.4 Smokeless tobacco: Never Tobacco comments: smokes cigars occasionally Vaping Use Vaping Use: Never used Substance Use Topics Alcohol use: Yes Alcohol/week: 12.0 standard drinks of alcohol Types: 12 Cans of beer per week Drug use: No Review of Symptoms REVIEW OF SYSTEMS SEE HPI EXAM: BP 143/85 Pulse 78 Resp 16 Wt (!) 162.8 kg (359 lb) BMI 54.41 kg/m General Appearance: Well appearing, alert, in no acute distress, well-hydrated, well nourished.. Ears: External ears normal, canals clear. Health Maintenance List Hepatitis B Vaccine(1 of 3 - 19+ 3-dose series) Never done Covid-19 Vaccine( season) due on 11/15/2023 Influenza Vaccine(Season Ended) due on 10/11/2023 Annual PCP Team Chronic Disease Visit due on 11/15/2023 Diabetes Screening due on 05/28/2026 Prostate Cancer Screening Discussion due on 10/21/2026 Lipid Screening due on 05/28/2028 Colorectal Cancer Screening due on 01/28/2029 DTaP,Tdap,Td Vaccine(3 - Td or Tdap) due on 10/02/2030 Hepatitis C Screening Completed Shingrix Vaccine Completed HIV Screening Discontinued ASSESSMENT/PLAN: 1. Vertigo - ICD9: 780.4, ICD10: R42 (primary diagnosis) - MECLIZINE 25 MG TABLET - CONSULT TO ENT - FLUTICASONE PROPIONATE 50 MCG/ACTUATION NASAL SPRAY,SUSPENSION - CONSULT TO PHYSICAL THERAPY 2. Tinnitus of both ears - ICD9: 388.30, ICD10: H93.13 - CONSULT TO ENT Radha Santoro APRN.WHITE W[employer]ER documented in this encounter [facility] 06-29-2023 Telephone encounter Note Protocol recommends see provider within 3 days. Pt scheduled with Aurora PEDRAZA 07/02/23 at 1120, as Pt is going to be out of town until then. Care plan reviewed with patient. Patient voices understanding. Advised patient that if symptoms get worse to be evaluated in Urgent Care or ER. Reason for Disposition [1] MILD dizziness (e.g., vertigo; walking normally) AND [2] has NOT been evaluated by doctor (or MAITRE D/PA) for this Answer Assessment - Initial Assessment Questions 1. DESCRIPTION: Pt states the room is moving. 2. VERTIGO: Pt states he feels like the room is spinning 3. LIGHTHEADED: Pt states he feels woozy, weak upon standing., He states he has to sit before getting up out of bed because the room is spinning. 4. SEVERITY: - MILD: Feels slightly dizzy and unsteady, but is walking normally. - MODERATE: Feels unsteady when walking, but not falling; interferes with normal activities (e.g., school, work). - SEVERE: Unable to walk without falling, or requires assistance to walk without falling. Pt states it is mild, it doesn't interfere with his walking. 5. ONSET: The dizziness began a few months ago, but became worse about a week ago. 6. AGGRAVATING FACTORS: Standing and changing head position make it worse. 7. CAUSE: Pt thinks his ears are are causing the issue. 8. RECURRENT SYMPTOM: Pt denies having had this dizziness before. 9. OTHER SYMPTOMS: Pt denies headache, weakness, numbness, vomiting, and earache. 10. : N/A Protocols used: Dizziness - [id number] [facility] 06-29-2023 Miscellaneous Notes Protocol recommends see provider within 3 days. Pt scheduled with Aurora PEDRAZA 07/02/23 at 1120, as Pt is going to be out of town until then. Care plan reviewed with patient. Patient voices understanding. Advised patient that if symptoms get worse to be evaluated in Urgent Care or ER. Reason for Disposition [1] MILD dizziness (e.g., vertigo; walking normally) AND [2] has NOT been evaluated by doctor (or MAITRE D/PA) for this Answer Assessment - Initial Assessment Questions 1. DESCRIPTION: Pt states the room is moving. 2. VERTIGO: Pt states he feels like the room is spinning 3. LIGHTHEADED: Pt states he feels woozy, weak upon standing., He states he has to sit before getting up out of bed because the room is spinning. 4. SEVERITY: - MILD: Feels slightly dizzy and unsteady, but is walking normally. - MODERATE: Feels unsteady when walking, but not falling; interferes with normal activities (e.g., school, work). - SEVERE: Unable to walk without falling, or requires assistance to walk without falling. Pt states it is mild, it doesn't interfere with his walking. 5. ONSET: The dizziness began a few months ago, but became worse about a week ago. 6. AGGRAVATING FACTORS: Standing and changing head position make it worse. 7. CAUSE: Pt thinks his ears are are causing the issue. 8. RECURRENT SYMPTOM: Pt denies having had this dizziness before. 9. OTHER SYMPTOMS: Pt denies headache, weakness, numbness, vomiting, and earache. 10. : N/A Protocols used: Dizziness - [id number] documented in this encounter [facility] 06-15-2023 Telephone encounter Note Patient was notified and will think about it and call back to schedule Keli Castillo MA [facility] 06-15-2023 Miscellaneous Notes Patient was notified and will think about it and call back to schedule Keli Castillo MA Let patient know knee x-ray showed no acute issues and some mild age related arthritis. Next step would be PHYSICAL THERAPY. Order placed. documented in this encounter [facility] 06-15-2023 Telephone encounter Note Let patient know knee x-ray showed no acute issues and some mild age related arthritis. Next step would be PHYSICAL THERAPY. Order placed. [facility] 06-11-2023 History of Presen t illness Narrative Radiology Service Progress Note PATIENT NAME: Kaylah Hobson DATE OF SERVICE: June 11, 2023 TIME: 11:21 AM PATIENT IDENTITY VERIFICATION COMPLETED USING TWO (2) IDENTIFIERS: Name and Date of confirmed by patient verbally. FALL SCREENING: Has the patient had 2 falls in the last year or 1 fall with injury or currently using an Ambulatory Assistive Device (Walker, Cane, Wheelchair, Crutches, etc.)? No PATIENT GENDER DATA: Male PATIENT RELEVANT IMPLANT DATA REVIEWED: Yes PATIENT PRESENTS WITH AN IMPLANTABLE OR ATTACHED RN TELEPHONE TRIAGE: No RADIOLOGY DEPARTMENT: General X-ray: Exam(s) Completed: Lower Extremity X-Ray(s): Knee, AP / Lat / Tunne / Merchant Right and Wt. Bearing PERIPHERAL IV DATA: Not applicable SIGNED BY: RT Lamont(R) June 11, 2023 11:21 AM documented in this encounter [facility] 06-09-2023 Telephone encounter Note Pt returned the call and notified knee xray order is in and given instructions that depending on result, he may have to have another appt for further treatment options. Pt verbalizes understanding. [facility] 06-09-2023 Miscellaneous Notes Pt returned the call and notified knee xray order is in and given instructions that depending on result, he may have to have another appt for further treatment options. Pt verbalizes understanding. Called and left message with pt's asking for pt to return call to office and speak with Triage Nurse. Simona Bledsoe MA Per my note, patient declined Physical Therapy or xray at the time of visit. I will order xray now but He may need to be re-evaluated after xray for any further tx options. Aurora Hahn PA-C Pt calls to report that at OV: 11/14/22 he was supposed to get xray of R knee because of knee pain. Pt reports he was given a paper to take to get xray. Pt reports it was crowded that day so he left and kept forgetting to come back and get xray. Pt would like to get xray now. Do not see an order for knee xray in pt's chart. Pt does not think he should have to come back in for appt since this issue was discussed and there already was an order for knee xray. Please review. Order xray if appropriate. Call pt with provider message. Claudia Castellanos LPN documented in this encounter [facility] 06-09-2023 Telephone encounter Note Called and left message with pt's asking for pt to return call to office and speak with Triage Nurse. Simona Bledsoe MA [facility] 06-09-2023 Telephone encounter Note Per my note, patient declined Physical Therapy or xray at the time of visit. I will order xray now but He may need to be re-evaluated after xray for any further tx options. Aurora Hahn PA-C [facility] 06-08-2023 Telephone encounter Note Pt calls to report that at OV: 11/14/22 he was supposed to get xray of R knee because of knee pain. Pt reports he was given a paper to take to get xray. Pt reports it was crowded that day so he left and kept forgetting to come back and get xray. Pt would like to get xray now. Do not see an order for knee xray in pt's chart. Pt does not think he should have to come back in for appt since this issue was discussed and there already was an order for knee xray. Please review. Order xray if appropriate. Call pt with provider message. Claudia Castellanos LPN [facility] 05-30-2023 Miscellaneous Notes Labs included an A1C but not a metabolic panel. Do you want a CMP? Please advise. Beck Alatorre LPN documented in this encounter [facility] 05-28-2023 Miscellaneous Notes Pt notified. Alanis Castillo LPN Labs were supposed to be done back in January. So they . I will put new orders in. He has 3 months before the again. Aurora Hahn PA-C Pt called in to get fasting lab orders entered. Pt reports he was to have lab work done and orders are not in. Please review and advise pt when orders are in. Bryanna Lawrence LPN documented in this encounter [facility] 11-14-2022 History of Presen t illness Narrative Chief Complaint Patient presents with: Yearly Exam HPI Kaylah Hobson is a 57 year old male who presents here today for physical. Patient with hx of Hypothyroid, FREDRICK, elevated glucose, depression, obesity, and those as below. Patient was off of medication at time of lab draw. Just restarted last week. Has been having R knee pain for the past 3-4 months. Getting worse. No injury that he can recall. Feels like it pops/clicks and will go out from under him. Last 6 Encounter Wt Readings: Date: Wt: 11/14/2022 160.6 kg (354 lb) 05/23/2022 156.5 kg (345 lb) 10/21/2021 157.9 kg (348 lb) 06/17/2021 154 kg (339 lb 9.6 oz) 04/19/2021 154.2 kg (340 lb) 10/09/2020 151.9 kg (334 lb 14.4 oz) Past medical history, appointments, medications, allergies reviewed. Previous Medical History PAST MEDICAL HISTORY Diagnosis Date Acquired hypothyroidism 01/22/2008 No longer on medication Cardiac dysrhythmia, unspecified 12/29/2007 ECG showed a single PVC in 12-17 Cervicalgia 02/20/2010 Foraminal stenosis of lumbar region 11/19/2018 Lumbago 02/20/2010 Obesity, Class III, BMI 40-49.9 (morbid obesity) ([facility]) 10/05/2007 Obstructive sleep apnea syndrome 02/16/2015 Other chronic sinusitis 1994 Recurrent major depressive disorder, in remission ([facility]) 10/05/2007 Appt with Chay Brian on 11-22-07 at [facility] Intolerant of Paxil as of 10-17: changed to a trial of Cymbalta Trial of qhs Cymbalta as of 10-17: if no ringing in the ears then will try once daily dosing after 2 weeks Appt 01-16 with physician at [facility]: work release granted until after his 01-24-08 appt with [facility] 01-16: clinically improving, no need for pharmacologic intervention Working p Spinal stenosis in cervical region 2004 Spondylosis Temporomandibular joint disorders, unspecified Previous Surgical History PAST SURGICAL HISTORY Procedure Laterality Date PAST SURGICAL HISTORY OF 2003 C5,6,7 fusion PAST SURGICAL HISTORY OF 1986 1990 TMJ PAST SURGICAL HISTORY OF 1992 sinus surgery PAST SURGICAL HISTORY OF 2004 ear surgery, left, cholesteatoma? Family History FAMILY HISTORY Adopted: Yes Problem Relation Age of Onset other (adopted) Other Patient Allergies ALLERGIES No Known Allergies Current Medications Current Outpatient Medications on File Prior to Visit Medication Sig aspirin, enteric coated (ASPIRIN, ENTERIC COATED) 81 mg EC tablet Take 81 mg by mouth once daily. rosuvastatin (CRESTOR) 20 mg tablet Take 1 tablet by mouth daily at bedtime. levothyroxine (SYNTHROID) 75 mcg tablet Take 1 tablet by mouth once daily. Thursday-Thursday. Take 2 tablet on Thursday. Take on empty stomach. For Thyroid. meloxicam (MOBIC) 15 mg tablet Take 1 tablet by mouth once daily. Take with food. cyclobenzaprine (FLEXERIL) 10 mg tablet Take 1 tablet by mouth three times daily as needed for muscle spasm. No current facility-administered medications on file prior to visit. Social History Social History Tobacco Use Smoking status: Former Packs/day: 1.00 Years: 13.00 Additional pack years: 0.00 Total pack years: 13.00 Types: Cigarettes Quit date: 02/12/1996 Years since quittin.7 Smokeless tobacco: Never Tobacco comments: smokes cigars occasionally Vaping Use Vaping Use: Never used Substance Use Topics Alcohol use: Yes Alcohol/week: 12.0 standard drinks of alcohol Types: 12 Cans of beer per week Drug use: No Review of Symptoms REVIEW OF SYSTEMS GENERAL: No weight loss, malaise or fevers HEENT: No changes in hearing or vision, no nose bleeds or other nasal problems NECK: Negative for lumps, goiter, pain and significant neck swelling RESPIRATORY: Negative for cough, hemoptysis, wheezing, COPD, dyspnea or shortness of breath CARDIOVASCULAR: Negative for chest pain, leg swelling, hypertension, CHF or palpitations GI: Negative for abdominal discomfort, blood in stools or black stools, change in bowel habit, heart burn, nausea, vomiting : No history of dysuria, frequency or incontinence MUSCULOSKELETAL: joint pain or swelling and see hpi SKIN: Negative for lesions, rash, and itching PSYCH: Negative for sleep disturbance, mood disorder and recent psychosocial stressors HEMATOLOGY/LYMPHOLOGY: Negative for prolonged bleeding, bruising easily or swollen nodes ENDOCRINE: Negative for cold or heat intolerance, polyuria, polydipsia and goiter NEURO: No history of headaches, syncope, paralysis, seizures or tremors EXAM: BP 120/80 (BP Site: Left Arm, BP Position: Sitting, BP Cuff Size: Large Adult) Pulse 77 Temp 36.4 C (97.5 F) Resp 18 Wt (!) 160.6 kg (354 lb) BMI 53.65 kg/m General Appearance: Well appearing, alert, in no acute distress, well-hydrated, well nourished.. morbidly obese Skin: Skin color, texture, turgor normal, no suspicious rashes or lesions. Head: Normocephalic, no masses, lesions, tenderness or abnormalities. Eyes: Anicteric sclera. Pupils are equally round and reactive to light. Extraocular movements are intact. . Ears: External ears normal, canals clear. Nose/Sinuses: Nares normal, septum midline, mucosa normal, no drainage or sinus tenderness. Oropharynx: Lips, mucosa, and tongue normal, teeth and gums normal, oropharynx normal. Neck: Supple, no adenopathy; thyroid symmetric, normal size, no bruits. Lungs: Lungs clear to auscultation. No wheezing, rhonchi, rales.. Heart: RRR without murmur, gallop, or rubs. No ectopy. Abdomen: Normal abdominal exam, Abdomen soft, non-tender. Bowel sounds normal. No masses, organomegaly. Extremities: No deformities, edema, skin discoloration, clubbing or cyanosis. Good capillary refill. . Peripheral Pulses: Normal. Neurologic: Gait normal. Reflexes normal and symmetric. Sensation grossly intact.. Health Maintenance List Hepatitis B Vaccine(1 of 3 - 3-dose series) Never done Influenza Vaccine(1) due on 08/09/2023 Covid-19 Vaccine(4 - Pfizer series) due on 11/15/2023 Annual PCP Team Chronic Disease Visit due on 05/24/2023 Diabetes Screening due on 10/21/2025 Prostate Cancer Screening Discussion due on 10/21/2026 Lipid Screening due on 10/22/2027 Colorectal Cancer Screening due on 01/28/2029 DTaP,Tdap,Td Vaccine(3 - Td or Tdap) due on 10/02/2030 Hepatitis C Screening Completed Shingrix Vaccine Completed HIV Screening Discontinued Data reviewed Component Latest Ref Rng & Units 10/21/2022 Protein, Total 6.3 - 8.0 g/dL 7.3 Albumin 3.9 - 4.9 g/dL 4.2 Calcium 8.5 - 10.2 mg/dL 9.0 Bilirubin, Total 0.2 - 1.3 mg/dL 0.3 Alkaline Phosphatase 38 - 113 U/L 97 AST 14 - 40 U/L 28 ALT 10 - 54 U/L 24 Glucose 74 - 99 mg/dL 106 (H) BUN 9 - 24 mg/dL 11 Creatinine 0.73 - 1.22 mg/dL 0.93 Sodium 136 - 144 mmol/L 140 Potassium 3.7 - 5.1 mmol/L 4.7 Chloride 97 - 105 mmol/L 105 CO2 22 - 30 mmol/L 22 Anion Gap 9 - 18 mmol/L 13 eGFR >=60 mL/min/1.73m 97 Cholesterol, Total <200 mg/dL 199 Triglyceride <150 mg/dL 153 (H) HDL Cholesterol >39 mg/dL 44 Non HDL Cholesterol <130 mg/dL 155 (H) Fasting Time hrs 11 VLDL Cholesterol <30 mg/dL 31 (H) TC:HDL Ratio <5.10 4.52 LDL Cholesterol <100 mg/dL 124 (H) LDL:HDL Ratio <2.54 2.82 (H) TSH 0.270 - 4.200 mIU/L 6.720 (H) ASSESSMENT/PLAN: 1. Well adult exam - ICD9: V70.0, ICD10: Z00.00 (primary diagnosis) - Counseled on healthy diet and regular exercise - Follow up for annual exam in one year - advised 6montth follow up. Patient declined 2. Hyperlipidemia, unspecified hyperlipidemia type - ICD9: 272.4, ICD10: E78.5 - controlled - Continue current medications - Counseled on healthy diet and regular exercise - ROSUVASTATIN 20 MG TABLET 3. Acquired hypothyroidism - ICD9: 244.9, ICD10: E03.9 - Instructed patient on importance of taking on an empty stomach either first thing in the morning or at bedtime. - check TSH in 8 weeks - continue current dose of Synthroid - LEVOTHYROXINE 75 MCG TABLET - TSH BLD 4. Obstructive sleep apnea syndrome - ICD9: 327.23, ICD10: G47.33 stable 5. Screening for diabetes mellitus - ICD9: V77.1, ICD10: Z13.1 - HGB A1C 6. Recurrent major depressive disorder, in remission (HCC) - ICD9: 296.35, ICD10: F33.40 stable 7. Obesity, Class III, BMI 40-49.9 (morbid obesity) (HCC) - ICD9: 278.01, ICD10: E66.01 Weight increase. Needs to watch diet. 8. Right knee pain, unspecified chronicity - ICD9: 719.46, ICD10: M25.561 Discussed options. Patient can use topical NSAID or oral NSAID prn. Declines Physical Therapy or xray at this time. Advised patient on weight loss. Patient declines visits every 6 months. Will see in 1 year. Aurora Hahn PA-C documented in this encounter [facility] 10-28-2022 Miscellaneous Notes Patient scheduled CPE with RR 11/11/22. Monica Ewing MA TC to pt. LM to call office, ask for triage nurse to schedule appt with Dr. Castañeda or one of his MAITRE D. Charisse Vanessa LPN He should have appt with PCP for review of labs; thyroid dose may need adjusted Josué Das MD documented in this encounter [facility] 10-21-2022 Miscellaneous Notes Patient reports he ran out of medication 2 weeks ago. Reports he has been fasting and and is headed to the lab to complete the lab orders. Patient has been identified by name and date of : Yes, Provider Tano Date 10-21-22 Time 8:50 am Patient phones for refill(s): Requested Prescriptions Pending Prescriptions Disp Refills rosuvastatin (CRESTOR) 20 mg tablet 90 tablet 0 Sig: Take 1 tablet by mouth daily at bedtime. levothyroxine (SYNTHROID) 75 mcg tablet 102 tablet 0 Sig: Take 1 tablet by mouth once daily. Thursday-Thursday. Take 2 tablet on Thursday. Take on empty stomach. For Thyroid. Date of last office visit with pcp: 05-23-22. Next appt: none Last 2 Encounter Wt Readings: Date: Wt: 05/23/2022 156.5 kg (345 lb) 10/21/2021 157.9 kg (348 lb) Previous labs/tests for medication: Thyroid: TSH Date Value 10/21/2021 1.590 mIU/L 10/29/2020 4.990 uU/mL Cholesterol: HDL Cholesterol (mg/dL) Date Value 11/19/2018 44 HDL Cholesterol, Nonfasting (mg/dL) Date Value 10/21/2021 48 10/02/2020 36 LDL Cholesterol (mg/dL) Date Value 11/19/2018 115 LDL Cholesterol, Nonfasting (mg/dL) Date Value 10/21/2021 51 10/02/2020 110 ALT (U/L) Date Value 10/21/2021 24 07/05/2020 24 Non HDL Cholesterol, Nonfasting (mg/dL) Date Value 10/21/2021 65 10/02/2020 137 Please advise. Thank you. Jyothi Agudelo RN documented in this encounter [facility] 05-23-2022 History of Presen t illness Narrative Chief Complaint Patient presents with: Cough HPI Kaylah Hobson is a 57 year old male who presents here today for cough. Pt of Dr. Castañeda's here today for evaluation of cough. Pt c/o cough for the last few weeks with head congestion that started about a week later from this stomach bug. No fever, sore throat, ear pain. He has not tested for Covid. He states he is blowing out green snot. He has been using Nyquil and Dayquil. He had a stomach bug about 2-3 weeks ago. Had diarrhea, gi upset, fatigue. This lasted 2-3 days and then the respiratory symptoms started. Pain: right knee; feels like it is going to give out at times. No swelling. Limited ability to cross right leg over left leg. Rated pain 4 on pain scale. Pressure, tearing, sore, stabbing pain with movement. Pain x 2 months. Denies any injury. He has not tried any heat, ice, or pain relievers. 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 No swelling. He carried a case of champagne around the store for a long time. Denies any injury. He has not tried any heat, ice, or pain relievers. Also requests refills on crestor and synthroid. Has been out for a short while; due for office visit . Doing well on these meds. Past medical history, appointments, medications, allergies reviewed. Previous Medical History PAST MEDICAL HISTORY Diagnosis Date Acquired hypothyroidism 01/22/2008 No longer on medication Cardiac dysrhythmia, unspecified 12/29/2007 ECG showed a single PVC in 12-17 Cervicalgia 02/20/2010 Foraminal stenosis of lumbar region 11/19/2018 Lumbago 02/20/2010 Obesity, Class III, BMI 40-49.9 (morbid obesity) ([facility]) 10/05/2007 Obstructive sleep apnea syndrome 02/16/2015 Other chronic sinusitis 1994 Recurrent major depressive disorder, in remission ([facility]) 10/05/2007 Appt with Chay Brian on 11-22-07 at [facility] Intolerant of Paxil as of 10-17: changed to a trial of Cymbalta Trial of qhs Cymbalta as of 10-17: if no ringing in the ears then will try once daily dosing after 2 weeks Appt 01-16 with physician at [facility]: work release granted until after his 01-24-08 appt with [facility] 01-16: clinically improving, no need for pharmacologic intervention Working p Spinal stenosis in cervical region 2004 Spondylosis Temporomandibular joint disorders, unspecified Previous Surgical History PAST SURGICAL HISTORY Procedure Laterality Date PAST SURGICAL HISTORY OF 2003 C5,6,7 fusion PAST SURGICAL HISTORY OF 1986 1990 TMJ PAST SURGICAL HISTORY OF 1992 sinus surgery PAST SURGICAL HISTORY OF 2004 ear surgery, left, cholesteatoma? Family History FAMILY HISTORY Adopted: Yes Problem Relation Age of Onset other (adopted) Other Patient Allergies ALLERGIES No Known Allergies Current Medications Current Outpatient Medications on File Prior to Visit Medication Sig levothyroxine (SYNTHROID) 75 mcg tablet Take 1 tablet by mouth once daily. Thursday-Thursday. Take 2 tablet on Thursday. Take on empty stomach. For Thyroid. rosuvastatin (CRESTOR) 20 mg tablet TAKE 1 TABLET BY MOUTH AT BEDTIME cyclobenzaprine (FLEXERIL) 10 mg tablet Take 1 tablet by mouth three times daily as needed for muscle spasm. No current facility-administered medications on file prior to visit. Social History Social History Tobacco Use Smoking status: Former Packs/day: 1.00 Years: 13.00 Pack years: 13.00 Types: Cigarettes Quit date: 02/12/1996 Years since quittin.2 Smokeless tobacco: Never Tobacco comments: smokes cigars occasionally Vaping Use Vaping Use: Never used Substance Use Topics Alcohol use: Yes Alcohol/week: 12.0 standard drinks Types: 12 Cans of beer per week Drug use: No EXAM: BP 120/78 Pulse 76 Resp 18 Wt (!) 156.5 kg (345 lb) SpO2 96% BMI 52.29 kg/m General Appearance: Well appearing, alert, in no acute distress, well-hydrated, well nourished. and Morbidly obese. Ears: tms clear. Lungs: Lungs clear to auscultation. No wheezing, rhonchi, rales.. Heart: RRR without murmur, gallop, or rubs. No ectopy. Extremities: Tender left lateral epicondyle; no swelling in right knee, mild joint line tenderness. Health Maintenance List HEPATITIS B(1 of 3 - 3-dose series) Never done COVID-19 VACCINE(4 - Booster for Pfizer series) due on 02/04/2021 INFLUENZA(Season Ended) due on 10/10/2022 ANNUAL PCP TEAM CHRONIC DISEASE VISIT due on 10/21/2022 DIABETES SCREEN due on 10/21/2024 LIPID SCREEN due on 10/21/2026 PROSTATE CANCER SCREENING DISCUSSION due on 10/21/2026 COLORECTAL CANCER SCREENING due on 01/28/2029 DTAP,TDAP,TD(3 - Td or Tdap) due on 10/02/2030 HEPATITIS C SCREENING Completed SHINGRIX VACCINE Completed HIV SCREENING Discontinued Data reviewed none ASSESSMENT/PLAN: 1. Bronchitis - ICD9: 490, ICD10: J40 (primary diagnosis) COntinue symptomatic treatment - AZITHROMYCIN 250 MG TABLET 2. Lateral epicondylitis of left elbow - ICD9: 726.32, ICD10: M77.12 Mobic 3. Right knee pain, unspecified chronicity - ICD9: 719.46, ICD10: M25.561 Mobic 4. Acquired hypothyroidism - ICD9: 244.9, ICD10: E03.9 - Instructed patient on importance of taking on an empty stomach either first thing in the morning or at bedtime. - check TSH in 3 months - continue current dose of Synthroid 0.075 mg - TSH BLD - LEVOTHYROXINE 75 MCG TABLET 5. Hyperlipidemia, unspecified hyperlipidemia type - ICD9: 272.4, ICD10: E78.5 - LIPID PANEL BASIC - COMP METABOLIC PANEL - ROSUVASTATIN 20 MG TABLET Call if knee and/or elbow not improving in 2-4 weeks; consider Ortho eval for injection Will have him check labs in 3 months; would not be helpful to get today as he has been out of meds. I agree with the Chief Complaint, ROS, and Past Histories independently gathered by the clinical child support investigator and the remaining scribed note accurately describes my personal service to the patient. Medical Decision Making: Problems: Low: 2+ self-limited or minor problems Moderate: 2+ stable chronic illnesses Data: Unique test(s) ordered: 3+ Risk: Moderate: Drug management Medical Decision Making Level: 4 - Moderate Josué Das MD The documentation for this note was completed by Ros Kurtz Ma acting as scribe for Josué Das MD. May 23, 2022 1:50 PM. Ros Kurtz Ma documented in this encounter [facility] 05-07-2022 Miscellaneous Notes Patient due for appt. Only 1 month sent. Patient has been identified by name and date of : Yes Requested Prescriptions Pending Prescriptions Disp Refills levothyroxine (SYNTHROID) 75 mcg tablet 34 tablet 5 Sig: Take 1 tablet by mouth once daily. Thursday-Thursday. Take 2 tablet on Thursday. Take on empty stomach. For Thyroid. RX INSTRUCTIONS: Patient aware RX will be sent to pharmacy. No need to notify patient. Flory Walden MA Booker; 10/2021 No appointment scheduled - needs 6 month follow up. L/m for patient to contact office for appointment Last refill; 10/21/2021 documented in this encounter [facility] 10-22-2021 Miscellaneous Notes Pt notified of results via [employer]. Ros Kurtz Ma A1c is up to 6%. Consider pre diabetic and has worsened. 6.5% is considered diabetic. Really stress weight loss and decreasing carbs/sugars. Otherwise may be heading to starting medication to help lower glucose. Cholesterol is normal. Blood counts okay. Thyroid normal Psa normal Hep c is negative. Thanks. Aurora Hahn PA-C documented in this encounter [facility] 10-21-2021 History of Presen t illness Narrative Chief Complaint Patient presents with: Physical HPI Kaylah Hobson is a 56 year old male who presents here today for physical.. Patient with hx of FREDRICK, Hypothyroid, elevated glucose, depression, obesity, and those as below. Patient started having low back pain yesterday. Has been having spasms. No specific injury. Pain is more with movement. Past medical history, appointments, medications, allergies reviewed. Previous Medical History PAST MEDICAL HISTORY Diagnosis Date Acquired hypothyroidism 01/22/2008 No longer on medication Cardiac dysrhythmia, unspecified 12/29/2007 ECG showed a single PVC in 12-17 Cervicalgia 02/20/2010 Foraminal stenosis of lumbar region 11/19/2018 Lumbago 02/20/2010 Obesity, Class III, BMI 40-49.9 (morbid obesity) ([facility]) 10/05/2007 Obstructive sleep apnea syndrome 02/16/2015 Other chronic sinusitis 1994 Recurrent major depressive disorder, in remission ([facility]) 10/05/2007 Appt with Chay Brian on 11-22-07 at [facility] Intolerant of Paxil as of 10-17: changed to a trial of Cymbalta Trial of qhs Cymbalta as of 10-17: if no ringing in the ears then will try once daily dosing after 2 weeks Appt 01-16 with physician at [facility]: work release granted until after his 01-24-08 appt with [facility] 01-16: clinically improving, no need for pharmacologic intervention Working p Spinal stenosis in cervical region 2004 Spondylosis Temporomandibular joint disorders, unspecified Previous Surgical History PAST SURGICAL HISTORY Procedure Laterality Date PAST SURGICAL HISTORY OF 2003 C5,6,7 fusion PAST SURGICAL HISTORY OF 1986 1990 TMJ PAST SURGICAL HISTORY OF 1992 sinus surgery PAST SURGICAL HISTORY OF 2004 ear surgery, left, cholesteatoma? Family History FAMILY HISTORY Adopted: Yes Problem Relation Age of Onset other (adopted) Other Patient Allergies ALLERGIES No Known Allergies Current Medications Current Outpatient Medications on File Prior to Visit Medication Sig levothyroxine (SYNTHROID) 75 mcg tablet Take 1 tablet by mouth once daily. Thursday-Thursday. Take 1.5 tablet on Thursday. Take on empty stomach. For Thyroid. rosuvastatin (CRESTOR) 20 mg tablet Take 1 tablet by mouth daily at bedtime. albuterol HFA (VENTOLIN HFA) 90 mcg/actuation inhaler Inhale 2 Puffs as instructed every 4 hours as needed. Current Facility-Administered Medications on File Prior to Visit Medication perflutren lipid microspheres 1.3 mL in NaCl (PF) 0.9% 10 mL injection (DEFINITY) sodium chloride 0.9 % (flush) 10 mL (BD POSIFLUSH) Social History Social History Tobacco Use Smoking status: Light Smoker Packs/day: 1.00 Years: 13.00 Pack years: 13.00 Types: Cigarettes Last attempt to quit: 02/12/1996 Years since quittin.7 Smokeless tobacco: Never Tobacco comments: smokes cigars occasionally Vaping Use Vaping Use: Never used Substance Use Topics Alcohol use: Yes Drug use: No Review of Symptoms REVIEW OF SYSTEMS GENERAL: No weight loss, malaise or fevers HEENT: No changes in hearing or vision, no nose bleeds or other nasal problems NECK: Negative for lumps, goiter, pain and significant neck swelling RESPIRATORY: Negative for cough, hemoptysis, wheezing, COPD, dyspnea or shortness of breath CARDIOVASCULAR: Negative for chest pain, leg swelling, CHF or palpitations GI: Negative for abdominal discomfort, blood in stools or black stools, change in bowel habit, heart burn, nausea, vomiting : No history of dysuria, frequency or incontinence MUSCULOSKELETAL: see hpi SKIN: Negative for lesions, rash, and itching PSYCH: Negative for sleep disturbance, mood disorder and recent psychosocial stressors HEMATOLOGY/LYMPHOLOGY: Negative for prolonged bleeding, bruising easily or swollen nodes ENDOCRINE: Negative for cold or heat intolerance, polyuria, polydipsia and goiter NEURO: No history of headaches, syncope, paralysis, seizures or tremors EXAM: BP 126/78 (BP Site: Left Arm, BP Position: Sitting, BP Cuff Size: Large Adult) Pulse 88 Temp 36.3 C (97.3 F) Resp 18 Ht 173 cm (5' 8.11) Wt (!) 157.9 kg (348 lb) BMI 52.74 kg/m Last 3 Encounter Wt Readings: Date: Wt: 10/21/2021 157.9 kg (348 lb) 06/17/2021 154 kg (339 lb 9.6 oz) 04/19/2021 154.2 kg (340 lb) General Appearance: Well appearing, alert, in no acute distress, well-hydrated, well nourished.. Skin: Skin color, texture, turgor normal, no suspicious rashes or lesions. Head: Normocephalic, no masses, lesions, tenderness or abnormalities. Eyes: Anicteric sclera. Pupils are equally round and reactive to light. Extraocular movements are intact. . Ears: External ears normal, canals clear, TMs pearly brooks. Neck: Supple, no adenopathy; thyroid symmetric, normal size, no bruits. Lungs: Lungs clear to auscultation. No wheezing, rhonchi, rales.. Heart: RRR without murmur, gallop, or rubs. No ectopy. Abdomen: Normal abdominal exam, Abdomen soft, non-tender. Bowel sounds normal. No masses, organomegaly. Extremities: No deformities, edema, skin discoloration, clubbing or cyanosis. Good capillary refill. . Peripheral Pulses: Normal. Neurologic: Gait normal. Reflexes normal and symmetric. Sensation grossly intact..SLR neg Rectal: declined Genital: declined. Health Maintenance List HEPATITIS B(1 of 3 - 3-dose series) Never done PNEUMOCOCCAL(1 - PCV) Never done HEPATITIS C SCREENING Never done COVID-19 VACCINE(4 - Booster for Pfizer series) due on 04/09/2021 INFLUENZA(1) due on 10/10/2021 ANNUAL PCP TEAM CHRONIC DISEASE VISIT due on 10/21/2022 DIABETES SCREEN due on 10/03/2023 LIPID SCREEN due on 06/17/2026 COLORECTAL CANCER SCREENING due on 01/28/2029 DTAP,TDAP,TD(3 - Td or Tdap) due on 10/02/2030 SHINGRIX VACCINE Completed HIV SCREENING Discontinued Data reviewed Component Latest Ref Rng & Units 06/17/2021 Total Cholesterol, Nonfasting <200 mg/dL 126 Triglycerides, Nonfasting <150 mg/dL 159 (H) HDL Cholesterol, Nonfasting >39 mg/dL 43 LDL Cholesterol, Nonfasting <100 mg/dL 51 Non HDL Cholesterol, Nonfasting <130 mg/dL 83 VLDL Cholesterol, Nonfasting <30 mg/dL 32 (H) Total Chol/HDL Ratio, Nonfasting <5.10 mg/dL 2.93 LDL/HDL Ratio, Nonfasting <2.54 mg/dL 1.19 TSH 0.270 - 4.200 mIU/L 2.940 Free T4 0.9 - 1.7 ng/dL 1.0 ASSESSMENT/PLAN: 1. Well adult exam - ICD9: V70.0, ICD10: Z00.00 (primary diagnosis) - Counseled on healthy diet and regular exercise - Discussed need for and benefit of weight loss. BMI 52.74 kg/(m^2) 2. Acquired hypothyroidism - ICD9: 244.9, ICD10: E03.9 - Instructed patient on importance of taking on an empty stomach either first thing in the morning or at bedtime. - CBC + DIFF - TSH BLD 3. Elevated glucose - ICD9: 790.29, ICD10: R73.09 check - HGB A1C - CBC + DIFF 4. Screening for diabetes mellitus - ICD9: V77.1, ICD10: Z13.1 - COMP METABOLIC PANEL 5. Obesity, Class III, BMI 40-49.9 (morbid obesity) (HCC) - ICD9: 278.01, ICD10: E66.01 Discussed weight gain - COMP METABOLIC PANEL 6. Need for hepatitis C screening test - ICD9: V73.89, ICD10: Z11.59 - HEP C AB IA W/CONF SCRN 7. Encounter for lipid screening for cardiovascular disease - ICD9: V77.91, V81.2, ICD10: Z13.220, Z13.6 - LIPID PANEL, NONFASTING 8. Screening for prostate cancer - ICD9: V76.44, ICD10: Z12.5 - PSA/PROSTSPECAG DIAG 9. Obstructive sleep apnea syndrome - ICD9: 327.23, ICD10: G47.33 Stable. Continue CPAP 10. Recurrent major depressive disorder, in remission (HCC) - ICD9: 296.35, ICD10: F33.40 Stable. Aurora Hahn PA-C documented in this encounter [facility] 06-18-2021 Miscellaneous Notes Patient notified of results and provider's instructions. Patient verbalizes understanding. Carlota Miranda LPN TSH is normal. Cholesterol is good but triglycerides increased slightly. Continue to watch diet. LDL great at 51 though. Overall I am happy with results but no room for slacking on diet and weight loss. Continue current doses of meds. Thanks. Aurora Hahn PA-C documented in this encounter [facility] 06-17-2021 Miscellaneous Notes Reviewed. Order placed. Contacted patient and updated with results and recommendations. Patient voiced understanding. And will repeat CXR as ordered in one week. ----- Message from Chalo Seay MD sent at 06/17/2021 3:46 PM EDT ----- Patient with questionable spot of haziness over the right upper lung on chest xray. With recent COVID infection, would not treat with abx at this time. Recommend repeating imaging in 1 week to monitor for progression. Call if cough worsens or he develops shortness of breath, worsening congestion, fever/chills, chest pain. documented in this encounter [facility] 06-17-2021 History of Presen t illness Narrative Radiology Service Progress Note PATIENT NAME: Kaylah Hobson DATE OF SERVICE: June 17, 2021 TIME: 9:27 AM PATIENT IDENTITY VERIFICATION COMPLETED USING TWO (2) IDENTIFIERS: Name and Date of confirmed by patient verbally. FALL SCREENING: Has the patient had 2 falls in the last year or 1 fall with injury or currently using an Ambulatory Assistive Device (Walker, Cane, Wheelchair, Crutches, etc.)? No PATIENT GENDER DATA: Male PATIENT RELEVANT IMPLANT DATA REVIEWED: Not Applicable RADIOLOGY DEPARTMENT: General X-ray: Exam(s) Completed: Chest X-Ray PERIPHERAL IV DATA: Not applicable SIGNED BY: RT Belem(R) June 17, 2021 9:27 AM documented in this encounter [facility] 06-17-2021 History of Presen t illness Narrative Chief Complaint Patient presents with: Cough: covid positive 06/11/21 HPI Kaylah Hobson is a 56 year old male who presents here today for COVID follow up. Patient positive for COVID on 06/11 on rapid test with symptoms starting 06/05. States that he mainly had fatigue, rhinorrhea, chills, and productive/wet cough. Isolated at home as recommended by CDC. States that his symptoms have resolved aside from the cough, chest congestion and occasional wheezing. Taking Nyquil at night which does help with cough temporarily. Has not tried anything else OTC. Denies fever, chills, chest pain, SOB, nausea, vomiting, diarrhea, headache, sore throat, loss of taste/smell, rhinorrhea, nasal congestion, myalgias, fatigue. Symptoms were gradually improving until this morning when he was gagging with cough. Past medical history, appointments, medications, allergies reviewed. Previous Medical History PAST MEDICAL HISTORY Diagnosis Date Acquired hypothyroidism 01/22/2008 No longer on medication Cardiac dysrhythmia, unspecified 12/29/2007 ECG showed a single PVC in 11-08 Cervicalgia 02/20/2010 Foraminal stenosis of lumbar region 11/19/2018 Lumbago 02/20/2010 Obesity, Class III, BMI 40-49.9 (morbid obesity) ([facility]) 10/05/2007 Obstructive sleep apnea syndrome 02/16/2015 Other chronic sinusitis 1994 Recurrent major depressive disorder, in remission ([facility]) 10/05/2007 Appt with Chay Brian on 11-22-07 at [facility] Intolerant of Paxil as of 10-17: changed to a trial of Cymbalta Trial of qhs Cymbalta as of 10-17: if no ringing in the ears then will try once daily dosing after 2 weeks Appt 01-16 with physician at [facility]: work release granted until after his 01-24-08 appt with [facility] 01-16: clinically improving, no need for pharmacologic intervention Working p Spinal stenosis in cervical region 2004 Spondylosis Temporomandibular joint disorders, unspecified Previous Surgical History PAST SURGICAL HISTORY Procedure Laterality Date PAST SURGICAL HISTORY OF 2003 C5,6,7 fusion PAST SURGICAL HISTORY OF 1986 1990 TMJ PAST SURGICAL HISTORY OF 1992 sinus surgery PAST SURGICAL HISTORY OF 2004 ear surgery, left, cholesteatoma? Family History FAMILY HISTORY Adopted: Yes Problem Relation Age of Onset other (adopted) Other Patient Allergies ALLERGIES No Known Allergies Current Medications Current Outpatient Medications on File Prior to Visit Medication Sig levothyroxine (SYNTHROID) 75 mcg tablet Take 1 tablet by mouth once daily. Thursday-Thursday. Take 1.5 tablet on Thursday. Take on empty stomach. For Thyroid. rosuvastatin (CRESTOR) 20 mg tablet Take 1 tablet by mouth daily at bedtime. Current Facility-Administered Medications on File Prior to Visit Medication perflutren lipid microspheres 1.3 mL in NaCl (PF) 0.9% 10 mL injection (DEFINITY) sodium chloride 0.9 % (flush) 10 mL (BD POSIFLUSH) Social History Social History Tobacco Use Smoking status: Light Tobacco Smoker Packs/day: 1.00 Years: 13.00 Pack years: 13.00 Types: Cigarettes Last attempt to quit: 02/12/1996 Years since quittin.3 Smokeless tobacco: Never Used Tobacco comment: smokes cigars occasionally Vaping Use Vaping Use: Never used Substance Use Topics Alcohol use: Yes Drug use: No Review of Symptoms REVIEW OF SYSTEMS See HPI EXAM: BP 110/80 Pulse 69 Temp 36.3 C (97.4 F) Resp 18 Wt (!) 154 kg (339 lb 9.6 oz) SpO2 97% BMI 48.73 kg/m General Appearance: Well appearing, alert, in no acute distress, well-hydrated, well nourished.. Skin: Skin color, texture, turgor normal, no suspicious rashes or lesions. Head: Normocephalic, no masses, lesions, tenderness or abnormalities. Eyes: Anicteric sclera. Pupils are equally round and reactive to light. Extraocular movements are intact. . Ears: External ears normal, canals clear. Neck: Supple, no adenopathy; thyroid symmetric, normal size, no bruits. Lungs: Decreased lung sounds bilaterally due habitus. No rales, rhonchi, or wheezing. Heart: RRR without murmur, gallop, or rubs. No ectopy. Abdomen: Normal abdominal exam, Abdomen soft, non-tender. Bowel sounds normal. No masses, organomegaly. Extremities: No deformities, edema, skin discoloration, clubbing or cyanosis. Good capillary refill. . Health Maintenance List ONE PNEUMOVAX PRIOR TO AGE 65 Never done HEPATITIS C SCREENING due on 10/02/2021 INFLUENZA(Season Ended) due on 10/10/2021 ANNUAL PCP TEAM CHRONIC DISEASE VISIT due on 04/19/2022 DIABETES SCREEN due on 10/03/2023 LIPID SCREEN due on 10/02/2025 COLORECTAL CANCER SCREENING due on 01/28/2029 DTAP,TDAP,TD(3 - Td or Tdap) due on 10/02/2030 SHINGRIX VACCINE Completed COVID-19 VACCINE Completed MENINGOCOCCAL CONJUGATE Aged Out HIV SCREENING Discontinued ASSESSMENT/PLAN: 1. History of COVID-19 - ICD9: V12.09, ICD10: Z86.16 (primary diagnosis) Symptoms improving gradually aside from persistent cough. No signs of PE. Obtain CXR to rule out COVID pneumonia. Start albuterol for intermittent wheezing and tessalon for cough. May use mucinex OTC for chest congestion. Red flags for re-assessment reviewed with patient in detail. - ALBUTEROL SULFATE HFA 90 MCG/ACTUATION AEROSOL INHALER - BENZONATATE 100 MG CAPSULE - XR CHEST 2V FRONTAL/LAT 2. Productive cough - ICD9: 786.2, ICD10: R05.8 - ALBUTEROL SULFATE HFA 90 MCG/ACTUATION AEROSOL INHALER - BENZONATATE 100 MG CAPSULE Chalo Seay MD documented in this encounter [facility] 06-17-2021 Miscellaneous Notes Reviewed. Appointment today 06-[address] Seay. Magui Anderson APRN.KISHA Patient calls and states the following: COUGH ONSET: 06/05/21 SEVERITY: severe when he wakes up from laying all night and will get a little better as the day goes on but is persistant SPUTUM: green nasal draining HEMOPTYSIS: no DIFFICULTY BREATHING: no FEVER: no CARDIAC HISTORY: no LUNG HISTORY: no PE RISK FACTORS: per pt over weight OTHER SYMPTOMS: no wheezing or chest pain, does have nasal drainage Pt states he was dx with COVID-19 on a home test on 06-11-21, symptoms started on 06-05-21. Pt states all symptoms have resolved except cough and it is persisting. Requesting something to help with cough. Apt booked. Bryanna Lawrence LPN documented in this encounter [facility] 06-12-2021 Miscellaneous Notes notified and voiced understanding. Flory Walden MA Left message for patient to contact office. Flory Walden MA Not if improving, plus the meds have to be started within 24-48 hrs of symptoms. called in and states did a COVID test yesterday 06-11-21 and pt is positive. Started with Symptoms on 06-05-21 with cough, body aches, fever and not feeling well. Today pt is starting to feel better 06-12-21. advised: have pt treat symptoms with other the counter medications, get plenty of fluids in, rest, quarantine x 5 days from when symptoms started and wear a mask an additional 5 days and need to have symptoms getting better. Question: asking if pt needs to be given medications for COVID besides using over the counter medications. Please advise. Bryanna Lawrence LPN documented in this encounter [facility] 05-25-2021 Miscellaneous Notes Patient was notified. Left message for pt to contact office. 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 Aurora Hahn PA-C documented in this encounter [facility] 05-23-2021 Miscellaneous Notes Radiology Service Progress Note DATE OF SERVICE: May 23, 2021 TIME: 7:12 PM PATIENT IDENTITY VERIFICATION COMPLETED USING TWO (2) STANDARD IDENTIFIERS: Name and Date of confirmed by patient verbally and Name and Date of confirmed by identification band. FALL SCREENING: Has the patient had 2 falls in the last year or 1 fall with injury or currently using an Ambulatory Assistive Device (Walker, Cane, Wheelchair, Crutches, etc.)? No PATIENT GENDER DATA: Male PATIENT RELEVANT IMPLANT DATA REVIEWED: Yes ALLERGIES: Reviewed and unchanged CONTRAST ALLERGY: NO. EXAM: MRI - CONTRAST TYPE: GROUP II PERIPHERAL IV DATA: Ambulatory: A peripheral IV was started in the Right wrist with a Butterfly: 23 gauge. RADIOLOGY DEPARTMENT: MR; Exam(s) Completed: Neck: Soft Tissue Neck SIGNATURE: lam5 PATIENT NAME: Kaylah Hobson DATE: May 23, 2021 TIME: 7:12 PM documented in this encounter [facility] 10-16-2020 Miscellaneous Notes NAME: KAYLAH HOBSON [facility] NO: [id number] DATE OF SERVICE: 10/16/2020 : 1965 ADDENDUM Mr. Hobson returned for elective coronary angiograms 10/16/2020. The study showed mild coronary atherosclerosis with mild irregularities in the mid LAD and RCA with a normal circumflex. Recommendations: 1. Low calorie diet. Try to reduce weight to a maximum of 300 pounds. Reduce alcohol intake. 2. Exercise program of 30 minutes 3-5 days weekly. 3. Aspirin 81 mg. 4. Rosuvastatin 20 mg daily. Monitor lipids for a target LDL cholesterol of 70 mg/dL. Alexis Bowman M.D. CS/089 Audio #: [id number] Date Dictated: 10/16/2020 16:30:29 Date Typed: 10/17/2020 08:20:36 Date Revised: 10/22/2020 documented in this encounter [facility] 10-16-2020 Note Formatting of this n ote might be different from the original. NAME: KAYLAH HOBSON [facility] NO: [id number] DATE OF SERVICE: 10/16/2020 : 1965 ADDENDUM Mr. Hobson returned for elective coronary angiograms 10/16/2020. The study showed mild coronary atherosclerosis with mild irregularities in the mid LAD and RCA with a normal circumflex. Recommendations: 1. Low calorie diet. Try to reduce weight to a maximum of 300 pounds. Reduce alcohol intake. 2. Exercise program of 30 minutes 3-5 days weekly. 3. Aspirin 81 mg. 4. Rosuvastatin 20 mg daily. Monitor lipids for a target LDL cholesterol of 70 mg/dL. Alexis Bowman M.D. CS/089 Audio #: [id number] Date Dictated: 10/16/2020 16:30:29 Date Typed: 10/17/2020 08:20:36 Date Revised: 10/22/2020 [facility] Work Phone: 10-09-2020 Miscellaneous Notes NAME: KAYLAH HOBSON [facility] NO: [id number] DATE OF SERVICE: 10/09/2020 : 1965 MEDICAL REPORT History of Present Illness: Mr. Hobson is a 55-year-old patient from [place], [place] who is referred for a cardiovascular evaluation following an abnormal nuclear stress test. For the past six months, he reports episodes of chest discomfort, exertional and nonexertional, in addition to exertional dyspnea (can barely make it to the end of the driveway). He has attributed these symptoms to his being overweight. As part of his initial evaluation, he had a pharmacologic nuclear stress test 09/24/2020. This study showed mild area of ischemia in the circumflex territory. No myocardial scar. Normal-sized left ventricle with normal systolic function. LVEF 57%. Normal right ventricle. Mr. Hobson has no history of hypertension or diabetes. Quit smoking cigarettes in 1996. Currently smokes on an average two cigars per day. Admits being a huge beer drinker, averaging 4-6 light beers per day. A lipid panel June 2020 showed a total cholesterol of 188, HDL 43, LDL 122, triglycerides 114 mg/dL. Medications: Levothyroxine 75 mcg. Physical Examination: Weight; 334 pounds, BMI 48. Blood pressure; 124/78. Pulse; 82, regular. Neck; No carotid bruits. Lungs; Clear to auscultation. Heart; Regular rhythm, no gallops, grade 1/6 systolic murmur along the left sternal border. Abdomen; Soft. Extremities; No peripheral No edema. Studies During This Visit: ECG: Sinus rhythm, 70 bpm. Isolated PVC. Otherwise normal tracing. Laboratory Studies: Lipid panel: Cholesterol 173, HDL 36, LDL 110, non-HDL 137, triglycerides 137 mg/dL. Glucose 103, hemoglobin A1c 5.6%, BUN 11, creatinine 0.99, potassium 4.2. Hemoglobin 14.4. Impression: Inferolateral ischemia on nuclear stress test. Plan and Recommendations: 1. Schedule coronary angiograms/PCI. Procedure, risks and revascularization alternatives reviewed. 2. Start aspirin 81 mg daily. Alexis Bowman M.D. CS/089 Audio #: [id number] Date Dictated: 10/09/2020 18:21:08 Date Typed: 10/10/2020 13:58:55 Date Revised: 10/12/2020 documented in this encounter [facility] 10-09-2020 Note Formatting of this n ote might be different from the original. NAME: KAYLAH HOBSON [facility] NO: [id number] DATE OF SERVICE: 10/09/2020 : 1965 MEDICAL REPORT History of Present Illness: Mr. Hobson is a 55-year-old patient from [place], [place] who is referred for a cardiovascular evaluation following an abnormal nuclear stress test. For the past six months, he reports episodes of chest discomfort, exertional and nonexertional, in addition to exertional dyspnea (can barely make it to the end of the driveway). He has attributed these symptoms to his being overweight. As part of his initial evaluation, he had a pharmacologic nuclear stress test 09/24/2020. This study showed mild area of ischemia in the circumflex territory. No myocardial scar. Normal-sized left ventricle with normal systolic function. LVEF 57%. Normal right ventricle. Mr. Hobson has no history of hypertension or diabetes. Quit smoking cigarettes in 1996. Currently smokes on an average two cigars per day. Admits being a huge beer drinker, averaging 4-6 light beers per day. A lipid panel June 2020 showed a total cholesterol of 188, HDL 43, LDL 122, triglycerides 114 mg/dL. Medications: Levothyroxine 75 mcg. Physical Examination: Weight; 334 pounds, BMI 48. Blood pressure; 124/78. Pulse; 82, regular. Neck; No carotid bruits. Lungs; Clear to auscultation. Heart; Regular rhythm, no gallops, grade 1/6 systolic murmur along the left sternal border. Abdomen; Soft. Extremities; No peripheral No edema. Studies During This Visit: ECG: Sinus rhythm, 70 bpm. Isolated PVC. Otherwise normal tracing. Laboratory Studies: Lipid panel: Cholesterol 173, HDL 36, LDL 110, non-HDL 137, triglycerides 137 mg/dL. Glucose 103, hemoglobin A1c 5.6%, BUN 11, creatinine 0.99, potassium 4.2. Hemoglobin 14.4. Impression: Inferolateral ischemia on nuclear stress test. Plan and Recommendations: 1. Schedule coronary angiograms/PCI. Procedure, risks and revascularization alternatives reviewed. 2. Start aspirin 81 mg daily. Alexis Bowman M.D. CS/089 Audio #: [id number] Date Dictated: 10/09/2020 18:21:08 Date Typed: 10/10/2020 13:58:55 Date Revised: 10/12/2020 [facility] 05-24-2008 History of Past i llness Narrative Problem Noted Date Resolved Date Adjustment disorder with mixed anxiety and depre ssed mood 05/24/2008 02/16/2015 Anxiety state, unspecified 10/05/200702/16 Overview: Head CT 09-16: no acute intracranial process Unspecified Sleep Apnea 03/12/2007 03/19/19 16 Overview: Using CPAP about 8 hours a day as of 10-17: last study was about 2004 (weighed about the same per pt) CPAP 10-18: effic 94%, AHI 0.2 at 14 cm (pt to use CPAP) documented as of this encounter (statuses as of 05/08/2021) [facility] History of Past illness Narrative* Problem Noted Date Resolved Date Adjustment disorder with mixed anxiety and depre ssed mood 05/24/2008 02/16/2015 Anxiety state, unspecified 10/05/200702/16 Overview: Head CT 8-08: no acute intracranial process Unspecified Sleep Apnea 03/12/2007 03/19/19 16 Overview: Using CPAP about 8 hours a day as of 10-17: last study was about 2004 (weighed about the same per pt) CPAP 10-18: effic 94%, AHI 0.2 at 14 cm (pt to use CPAP) documented as of this encounter (statuses as of 05/24/2021) [facility] History of Past illness Narrative* Problem Noted Date Resolved Date Adjustment disorder with mixed anxiety and depre ssed mood 05/24/2008 02/16/2015 Anxiety state, unspecified 10/05/200702/16 Overview: Head CT 8-08: no acute intracranial process Unspecified Sleep Apnea 03/12/2007 03/19/19 16 Overview: Using CPAP about 8 hours a day as of 10-17: last study was about 2004 (weighed about the same per pt) CPAP 10-18: effic 94%, AHI 0.2 at 14 cm (pt to use CPAP) documented as of this encounter (statuses as of 05/25/2021) [facility] History of Past illness Narrative* Problem Noted Date Resolved Date Adjustment disorder with mixed anxiety and depre ssed mood 05/24/2008 02/16/2015 Anxiety state, unspecified 10/05/200702/16 Overview: Head CT 8-08: no acute intracranial process Unspecified Sleep Apnea 03/12/2007 03/19/19 16 Overview: Using CPAP about 8 hours a day as of 10-17: last study was about 2004 (weighed about the same per pt) CPAP 10-18: effic 94%, AHI 0.2 at 14 cm (pt to use CPAP) documented as of this encounter (statuses as of 06/12/2021) [facility] History of Past illness Narrative* Problem Noted Date Resolved Date Adjustment disorder with mixed anxiety and depre ssed mood 05/24/2008 02/16/2015 Anxiety state, unspecified 10/05/200702/16 Overview: Head CT 8-08: no acute intracranial process Unspecified Sleep Apnea 03/12/2007 03/19/19 16 Overview: Using CPAP about 8 hours a day as of 10-17: last study was about 2005 (weighed about the same per pt) CPAP 10-18: effic 94%, AHI 0.2 at 14 cm (pt to use CPAP) documented as of this encounter (statuses as of 06/17/2021) [facility] History of Past illness Narrative* Problem Noted Date Resolved Date Adjustment disorder with mixed anxiety and depre ssed mood 05/24/2008 02/16/2015 Anxiety state, unspecified 10/05/200702/16 Overview: Head CT 8-08: no acute intracranial process Unspecified Sleep Apnea 03/12/2007 03/19/19 16 Overview: Using CPAP about 8 hours a day as of 10-17: last study was about 2004 (weighed about the same per pt) CPAP 10-18: effic 94%, AHI 0.2 at 14 cm (pt to use CPAP) documented as of this encounter (statuses as of 06/17/2021) [address]15-2009 History of Past illness Narrative* Problem Noted Date Resolved Date Adjustment disorder with mixed anxiety and depre ssed mood 05/24/2008 02/16/2015 Anxiety state, unspecified 10/05/200702/16 Overview: Head CT 8-08: no acute intracranial process Unspecified Sleep Apnea 03/12/2007 03/19/19 16 Overview: Using CPAP about 8 hours a day as of 10-17: last study was about 2004 (weighed about the same per pt) CPAP 10-18: effic 94%, AHI 0.2 at 14 cm (pt to use CPAP) documented as of this encounter (statuses as of 06/17/2021) [address]15-2009 History of Past illness Narrative* Problem Noted Date Resolved Date Adjustment disorder with mixed anxiety and depre ssed mood 05/24/2008 02/16/2015 Anxiety state, unspecified 10/05/200702/16 Overview: Head CT 8-08: no acute intracranial process Unspecified Sleep Apnea 03/12/2007 03/19/19 16 Overview: Using CPAP about 8 hours a day as of 10-17: last study was about 2004 (weighed about the same per pt) CPAP 10-18: effic 94%, AHI 0.2 at 14 cm (pt to use CPAP) documented as of this encounter (statuses as of 06/18/2021) [place] [id number] History of Past illness Narrative* Problem Noted Date Resolved Date Adjustment disorder with mixed anxiety and depre ssed mood 05/24/2008 02/16/2015 Anxiety state, unspecified 10/05/200702/16 Overview: Head CT 8-08: no acute intracranial process Unspecified Sleep Apnea 03/12/2007 03/19/19 16 Overview: Using CPAP about 8 hours a day as of 10-17: last study was about 2004 (weighed about the same per pt) CPAP 10-18: effic 94%, AHI 0.2 at 14 cm (pt to use CPAP) documented as of this encounter (statuses as of 10/21/2021) [address]15-2009 History of Past illness Narrative* Problem Noted Date Resolved Date Adjustment disorder with mixed anxiety and depre ssed mood 05/24/2008 02/16/2015 Anxiety state, unspecified 10/05/200702/16 Overview: Head CT 8-08: no acute intracranial process Unspecified Sleep Apnea 03/12/2007 03/19/19 16 Overview: Using CPAP about 8 hours a day as of 10-17: last study was about 2004 (weighed about the same per pt) CPAP 10-18: effic 94%, AHI 0.2 at 14 cm (pt to use CPAP) documented as of this encounter (statuses as of 10/22/2021) [address]15-2009 History of Past illness Narrative* Problem Noted Date Resolved Date Adjustment disorder with mixed anxiety and depre ssed mood 05/24/2008 02/16/2015 Anxiety state, unspecified 10/05/200702/16 Overview: Head CT 8-08: no acute intracranial process Unspecified Sleep Apnea 03/12/2007 03/19/19 16 Overview: Using CPAP about 8 hours a day as of 10-17: last study was about 2004 (weighed about the same per pt) CPAP 10-18: effic 94%, AHI 0.2 at 14 cm (pt to use CPAP) documented as of this encounter (statuses as of 01/31/2022) [facility] History of Past illness Narrative* Problem Noted Date Resolved Date Adjustment disorder with mixed anxiety and depre ssed mood 05/24/2008 02/16/2015 Anxiety state, unspecified 10/05/200702/16 Overview: Head CT 8-08: no acute intracranial process Unspecified Sleep Apnea 03/12/2007 03/19/19 16 Overview: Using CPAP about 8 hours a day as of 10-17: last study was about 2004 (weighed about the same per pt) CPAP 10-18: effic 94%, AHI 0.2 at 14 cm (pt to use CPAP) documented as of this encounter (statuses as of 05/07/2022) [facility] History of Past illness Narrative* Problem Noted Date Resolved Date Adjustment disorder with mixed anxiety and depre ssed mood 05/24/2008 02/16/2015 Anxiety state, unspecified 10/05/200702/16 Overview: Head CT 8-08: no acute intracranial process Unspecified Sleep Apnea 03/12/2007 03/19/19 16 Overview: Using CPAP about 8 hours a day as of 10-17: last study was about 2004 (weighed about the same per pt) CPAP 10-18: effic 94%, AHI 0.2 at 14 cm (pt to use CPAP) documented as of this encounter (statuses as of 05/24/2022) [place] [id number] History of Past illness Narrative* Problem Noted Date Diagnosed Date Resolved Date Adjustment disorder with mix ed anxiety and depressed mood 05/24/2008 02/16/2015 Anxiety state, unspecified 10/05/2007 0 02/16/2015 Overview: Head CT 8-08: no acute intracranial process Unspecified Sleep Apnea 03/12/200709/2015 Overview: Using CPAP about 8 hours a day as of 10-17: last study was about 2004 (weighed about the same per pt) CPAP 10-18: effic 94%, AHI 0.2 at 14 cm (pt to use CPAP) documented as of this encounter (statuses as of 10/21/2022) [address]-2009 History of Past illness Narrative* Problem Noted Date Diagnosed Date Resolved Date Adjustment disorder with mix ed anxiety and depressed mood 05/24/2008 02/16/2015 Anxiety state, unspecified 10/05/2007 0 02/16/2015 Overview: Head CT 8-08: no acute intracranial process Unspecified Sleep Apnea 03/12/200709/2015 Overview: Using CPAP about 8 hours a day as of 10-17: last study was about 2004 (weighed about the same per pt) CPAP 10-18: effic 94%, AHI 0.2 at 14 cm (pt to use CPAP) documented as of this encounter (statuses as of 10/28/2022) [address]-2009 History of Past illness Narrative* Problem Noted Date Diagnosed Date Resolved Date Adjustment disorder with mix ed anxiety and depressed mood 05/24/2008 02/16/2015 Anxiety state, unspecified 10/05/2007 0 02/16/2015 Overview: Head CT 8-08: no acute intracranial process Unspecified Sleep Apnea 03/12/200709/2015 Overview: Using CPAP about 8 hours a day as of 10-17: last study was about 2004 (weighed about the same per pt) CPAP 10-18: effic 94%, AHI 0.2 at 14 cm (pt to use CPAP) documented as of this encounter (statuses as of 11/15/2022) [facility] History of Past illness Narrative* Problem Noted Date Diagnosed Date Resolved Date Adjustment disorder with mix ed anxiety and depressed mood 05/24/2008 02/16/2015 Anxiety state, unspecified 10/05/2007 0 02/16/2015 Overview: Head CT 8-08: no acute intracranial process Unspecified Sleep Apnea 03/12/200709/2015 Overview: Using CPAP about 8 hours a day as of 10-17: last study was about 2004 (weighed about the same per pt) CPAP 10-18: effic 94%, AHI 0.2 at 14 cm (pt to use CPAP) documented as of this encounter (statuses as of 05/29/2023) [facility] History of Past illness Narrative* Problem Noted Date Diagnosed Date Resolved Date Adjustment disorder with mix ed anxiety and depressed mood 05/24/2008 02/16/2015 Anxiety state, unspecified 10/05/2007 0 02/16/2015 Overview: Head CT 8-08: no acute intracranial process Unspecified Sleep Apnea 03/12/200709/2015 Overview: Using CPAP about 8 hours a day as of 10-17: last study was about 2004 (weighed about the same per pt) CPAP 10-18: effic 94%, AHI 0.2 at 14 cm (pt to use CPAP) documented as of this encounter (statuses as of 06/01/2023) [facility] Localized swelling, mass or lump of neck Swelling, mass, or lump in head and neck [facility] History of COVID-19- Primary Productive cough [facility] Productive [facility]- Primary [facility]ough [facility] Diagnosis Well adult exam- Primary Routine general medical examination at a health care facility Acquired hypothyroidism Unspecified hypothyroidism Elevated glucose Other abnormal glucose Screening for diabetes mellitus Obesity, Class III, BMI 40-49.9 (morbid obesity) (HCC) Morbid obesity Need for hepatitis C screening test Special screening examination for other specified viral diseases Encounter for lipid screening for cardiovascular disease Screening for lipoid disorders Screening for prostate cancer Special screening for malignant neoplasm of prostate Obstructive sleep apnea syndrome Obstructive sleep apnea (adult) (pediatric) Recurrent major depressive disorder, in remission (HCC) [facility] Diagnosis Bronchitis- Primary Bronchitis, not specified as acute or chronic Lateral epicondylitis of left elbow Lateral epicondylitis of elbow Right knee pain, unspecified chronicity Acquired hypothyroidism Unspecified hypothyroidism Hyperlipidemia, unspecified hyperlipidemia type [facility] Diagnosis Hyperlipidemia, unspecified hyperlipidemia type Acquired hypothyroidism Unspecified hypothyroidism [facility] Diagnosis Well adult exam- Primary Routine general medical examination at a [facility] care facility Hyperlipidemia, unspecified hyperlipidemia type Acquired hypothyroidism Unspecified hypothyroidism Obstructive sleep apnea syndrome Obstructive sleep apnea (adult) (pediatric) Screening for diabetes mellitus Recurrent major depressive disorder, in remission (HCC) Morbid obesity (HCC) Morbid obesity Right knee pain, unspecified chronicity [facility] Diagnosis Elevated glucose- Primary Other abnormal glucose Acquired hypothyroidism Unspecified hypothyroidism Abnormal nuclear stress test Other nonspecific abnormal cardiovascular system function study Obesity, Class III, BMI 40-49.9 (morbid obesity) (HCC) Morbid obesity [facility] Diagnosis Acquired hypothyroidism- Primary Unspecified hypothyroidism [facility] Diagnosis Right knee pain, unspecified chronicity- Primary [facility] Diagnosis Acute pain of right knee- Primary [facility] Diagnosis Vertigo- Primary Dizziness and giddiness Tinnitus of both ears Unspecified tinnitus [facility] Diagnosis Vertigo Dizziness and giddiness [facility] Diagnosis Right knee pain, unspecified chronicity [facility] History of COVID-19 [facility] Diagnosis Acquired hypothyroidism Unspecified hypothyroidism Hyperlipidemia, unspecified hyperlipidemia type [facility] Diagnosis Acquired hypothyroidism- Primary Unspecified hypothyroidism Obesity, Class III, BMI 40-49.9 (morbid obesity) (HCC) Morbid obesity Screening for diabetes mellitus Elevated glucose Other abnormal glucose Abnormal nuclear stress test Other nonspecific abnormal cardiovascular system function study Morbid obesity (HCC) Morbid obesity Obstructive sleep apnea syndrome Obstructive sleep apnea (adult) (pediatric) Hyperlipidemia, unspecified hyperlipidemia type Screening for prostate cancer Special screening for malignant neoplasm of prostate [facility] Diagnosis Well adult exam- Primary Routine general medical examination at a health care facility Acquired hypothyroidism Unspecified hypothyroidism Morbid obesity with BMI of 50.0-59.9, adult (HCC) Morbid obesity Elevated glucose Other abnormal glucose Obstructive sleep apnea syndrome Obstructive sleep apnea (adult) (pediatric) Recurrent major depressive disorder, in remission Encounter for screening examination for other mental health and behavioral disorders documented in this encounter [facility] for [facility] (narrative)* Diagnostic Procedure Only (Routine) - Pending Review Specialty Diagnoses / Procedures Referred By Elen caldera Referred To Contact XR IMAGING Diagnoses Right knee pain, unspecified chronicity Procedures XR KNEE GENERAL 4V AP BOTH/PA BOTH/LAT/MERC RIGHT RADIOLOGIC EXAM KNEE COMPLETE 4/MORE VIEWS Aurora Hahn PA-C [address] [place] [address] [place] [address] Referral ID Status Reason Start Date Expiration Date Visits Requested Visits Authorized [id number] Pending Review Auto-Generat ed Referral 06/09/2023 07/08/2024 1 1 [facility] (narrative)* Diagnostic Procedure Only (Routine) - Closed Specialty Diagnoses / Procedures Referred By Elen caldera Referred To Contact XR IMAGING Diagnoses Right knee pain, unspecified chronicity Procedures XR KNEE GENERAL 4V AP BOTH/PA BOTH/LAT/MERC RIGHT RADIOLOGIC EXAM KNEE COMPLETE 4/MORE VIEWS Aurora Hahn PA-C [address] [place] [address] [place] [address] Referral ID Status Reason Start Date Expiration Date V isits Requested Visits Authorized [id number] Closed Auto-Generate d Referral 06/09/2023 07/08/2024 1 1 [facility] for visit Narrative* Diagnostic Procedure Only (Routine) - Closed Specialty Diagnoses / Procedures Referred By Contac t Referred To Contact XR IMAGING Diagnoses Right knee pain, unspecified chronicity Procedures XR KNEE GENERAL 4V AP BOTH/PA BOTH/LAT/MERC RIGHT RADIOLOGIC EXAM KNEE COMPLETE 4/MORE VIEWS Aurora Hahn PA-C [address] [place] [address] [place] [address] Referral ID Status Reason Start Date Expiration Date V isits Requested Visits Authorized [id number] Closed Auto-Generate d Referral 06/09/2023 07/08/2024 1 1 [facility] Summary Purpose Family History No Family History Records FoundNo Family History Records FoundNo Family History Records Found Advance Directives No Advanced Directives Records FoundDocuments on File Type Date Recorded Patient Assembler Motor Vehicle Expl anation Advance Directive(s) Advance Directive(s) 10/10/2020 6:17 PM Advance Directive(s) 01/28/2019 10:18 AM Advance Directive(s) 01/24/2019 9:36 AM Documents on File Type Date Recorded Patient Assembler Motor Vehicle Expl anation Advance Directive(s) Advance Directive(s) 10/10/2020 6:17 PM Advance Directive(s) 01/28/2019 10:18 AM Advance Directive(s) 01/24/2019 9:36 AM Reason for Referral Specialty Diagnoses / Procedures Referred By Contac t Referred To Contact Diagnoses History of COVID-19 Productive cough Chalo Seay MD [address] [place] [address] Referral ID Status Reason Start Date Expiration Date V isits Requested Visits Authorized [id number] Pending Review 1 1 Specialty Diagnoses / Procedures Referred By Contac t Referred To Contact Aurora Hahn PA-C [address] [place] [address] Referral ID Status Reason Start Date Expiration Date Visits Re quested Visits Authorized [id number] Denied 1 1 Specialty Diagnoses / Procedures Referred By Contac t Referred To Contact [facility] Diagnoses Acute pain of right knee Procedures CONSULT TO PHYSICAL THERAPY PHYSICAL THERAPY EVALUATION HIGH COMPLEX 45 MINS Vicente Castañeda MD [address] [place] [address] [facility] [address] [address] Referral ID Status Reason Start Date Expiration Date Visits Requested Visits Authorized [id number] Pending Review Auto-Generat ed Referral 06/15/2023 06/14/2024 1 1 Specialty Diagnoses / Procedures Referred By Contac t Referred To Contact [facility] Diagnoses Vertigo Procedures CONSULT TO PHYSICAL THERAPY PHYSICAL THERAPY [facility] 45 MINS Radha Santoro APRN.WHITE WASHER [address] [place] [address] [facility] [address] [address] Referral ID Status Reason Start Date Expiration Date Visits Requested Visits Authorized [id number] Authorized Auto-Generat ed Referral 02/09/2023 02/09/2024 40 40 Specialty Diagnoses / Procedures Referred By Contac t Referred To Contact Ent - Otolaryngology Diagnoses Vertigo Tinnitus of both ears Procedures CONSULT TO ENT OFFICE/OUTPATIENT [facility] 60 MINUTES Radha Santoro APRN.WHITE WASHER [address] [place] [address] Referral ID Status Reason Start Date Expiration Date Visits Requested Visits Authorized [id number] Authorized PCP Requested Referral 07/02/2023 07/01/2024 1 1 Additional Source Comments (unrecognized sect ion and content) No Status Records FoundNo Status Records FoundNo Status Records Found INFORMATION SOURCE (unrecogn ized section and content) DATE CREATED AUTHOR 02/06/2021 [facility] DATE CREATED AUTHOR AUTHOR'S ORGANIZ ATION 05/25/2021 [facility] DATE CREATED AUTHOR AUTHOR'S ORGANIZ ATION 10/22/2024 [facility] Source Comments (unrecognize d section and content) In the event this informatio n is protected by the Federal Confidentiality of Alcohol and Drug Abuse Patient Records regulations: The Federal rules restrict any use of the information to criminally investigate or prosecute any alcohol or drug abuse patient.[facility] the event this information is protected by the Federal Confidentiality of Alcohol and Drug Abuse Patient Records regulations: The Federal rules restrict any use of the information to criminally investigate or prosecute any alcohol or drug abuse patient.[facility] the event this information is protected by the Federal Confidentiality of Alcohol and Drug Abuse Patient Records regulations: The Federal rules restrict any use of the information to criminally investigate or prosecute any alcohol or drug abuse patient.[facility] the event this information is protected by the Federal Confidentiality of Alcohol and Drug Abuse Patient Records regulations: The Federal rules restrict any use of the information to criminally investigate or prosecute any alcohol or drug abuse patient.[facility] the event this information is protected by the Federal Confidentiality of Alcohol and Drug Abuse Patient Records regulations: The Federal rules restrict any use of the information to criminally investigate or prosecute any alcohol or drug abuse patient.[facility] the event this information is protected by the Federal Confidentiality of Alcohol and Drug Abuse Patient Records regulations: The Federal rules restrict any use of the information to criminally investigate or prosecute any alcohol or drug abuse patient.[facility] Hospital[facility] the event this information is protected by the Federal Confidentiality of Alcohol and Drug Abuse Patient Records regulations: The Federal rules restrict any use of the information to criminally investigate or prosecute any alcohol or drug abuse patient.[facility] the event this information is protected by the Federal Confidentiality of Alcohol and Drug Abuse Patient Records regulations: The Federal rules restrict any use of the information to criminally investigate or prosecute any alcohol or drug abuse patient.[facility] the event this information is protected by the Federal Confidentiality of Alcohol and Drug Abuse Patient Records regulations: The Federal rules restrict any use of the information to criminally investigate or prosecute any alcohol or drug abuse patient.[facility] Hospital[facility] the event this information is protected by the Federal Confidentiality of Alcohol and Drug Abuse Patient Records regulations: The Federal rules restrict any use of the information to criminally investigate or prosecute any alcohol or drug abuse patient.[facility] Hospital[facility] the event this information is protected by the Federal Confidentiality of Alcohol and Drug Abuse Patient Records regulations: The Federal rules restrict any use of the information to criminally investigate or prosecute any alcohol or drug abuse patient.[facility] the event this information is protected by the Federal Confidentiality of Alcohol and Drug Abuse Patient Records regulations: The Federal rules restrict any use of the information to criminally investigate or prosecute any alcohol or drug abuse patient.[facility] the event this information is protected by the Federal Confidentiality of Alcohol and Drug Abuse Patient Records regulations: The Federal rules restrict any use of the information to criminally investigate or prosecute any alcohol or drug abuse patient.[facility] the event this information is protected by the Federal Confidentiality of Alcohol and Drug Abuse Patient Records regulations: The Federal rules restrict any use of the information to criminally investigate or prosecute any alcohol or drug abuse patient.[facility] Hospital[facility] the event this information is protected by the Federal Confidentiality of Alcohol and Drug Abuse Patient Records regulations: The Federal rules restrict any use of the information to criminally investigate or prosecute any alcohol or drug abuse patient.[facility] Hospital[facility] the event this information is protected by the Federal Confidentiality of Alcohol and Drug Abuse Patient Records regulations: The Federal rules restrict any use of the information to criminally investigate or prosecute any alcohol or drug abuse patient.[facility] Hospital[facility] the event this information is protected by the Federal Confidentiality of Alcohol and Drug Abuse Patient Records regulations: The Federal rules restrict any use of the information to criminally investigate or prosecute any alcohol or drug abuse patient.[facility] Hospital[facility] the event this information is protected by the Federal Confidentiality of Alcohol and Drug Abuse Patient Records regulations: The Federal rules restrict any use of the information to criminally investigate or prosecute any alcohol or drug abuse patient.[facility] HospitalIn the event this information is protected by the Federal Confidentiality of Alcohol and Drug Abuse Patient Records regulations: The Federal rules restrict any use of the information to criminally investigate or prosecute any alcohol or drug abuse patient.[facility] HospitalIn the event this information is protected by the Federal Confidentiality of Alcohol and Drug Abuse Patient Records regulations: The Federal rules restrict any use of the information to criminally investigate or prosecute any alcohol or drug abuse patient.[facility] HospitalIn the event this information is protected by the Federal Confidentiality of Alcohol and Drug Abuse Patient Records regulations: The Federal rules restrict any use of the information to criminally investigate or prosecute any alcohol or drug abuse patient.[facility] HospitalIn the event this information is protected by the Federal Confidentiality of Alcohol and Drug Abuse Patient Records regulations: The Federal rules restrict any use of the information to criminally investigate or prosecute any alcohol or drug abuse patient.[facility] HospitalIn the event this information is protected by the Federal Confidentiality of Alcohol and Drug Abuse Patient Records regulations: The Federal rules restrict any use of the information to criminally investigate or prosecute any alcohol or drug abuse patient.[facility] HospitalIn the event this information is protected by the Federal Confidentiality of Alcohol and Drug Abuse Patient Records regulations: The Federal rules restrict any use of the information to criminally investigate or prosecute any alcohol or drug abuse patient.[facility] HospitalIn the event this information is protected by the Federal Confidentiality of Alcohol and Drug Abuse Patient Records regulations: The Federal rules restrict any use of the information to criminally investigate or prosecute any alcohol or drug abuse patient.[facility] HospitalIn the event this information is protected by the Federal Confidentiality of Alcohol and Drug Abuse Patient Records regulations: The Federal rules restrict any use of the information to criminally investigate or prosecute any alcohol or drug abuse patient.[facility] HospitalIn the event this information is protected by the Federal Confidentiality of Alcohol and Drug Abuse Patient Records regulations: The Federal rules restrict any use of the information to criminally investigate or prosecute any alcohol or drug abuse patient.[facility] HospitalIn the event this information is protected by the Federal Confidentiality of Alcohol and Drug Abuse Patient Records regulations: The Federal rules restrict any use of the information to criminally investigate or prosecute any alcohol or drug abuse patient.[facility] HospitalIn the event this information is protected by the Federal Confidentiality of Alcohol and Drug Abuse Patient Records regulations: The Federal rules restrict any use of the information to criminally investigate or prosecute any alcohol or drug abuse patient.[facility] HospitalIn the event this information is protected by the Federal Confidentiality of Alcohol and Drug Abuse Patient Records regulations: The Federal rules restrict any use of the information to criminally investigate or prosecute any alcohol or drug abuse patient.[facility] Reason for Visit (unrecogniz ed section and content) Specialty Diagnoses / Procedures Referred By Elen caldera Referred To Contact MR IMAGING Diagnoses Localized swelling, mass or lump of neck Procedures MRI SOFT TISSUE NECK WO/W IVCON MRI ORBIT FACE & NECK W/O & W/CONTRAST Aurora Powers PA-C [address] [place] [address] Mr Imaging Referral ID Status Reason Start Date Expiration Date Visits Requested Visits Authorized [id number] Authorized Auto-Generat ed Referral 04/19/2021 06/03/2021 1 1 Referral ID Status Reason Start Date Expiration Date V isits Requested Visits Authorized [id number] Closed Auto-Generate d Referral 04/19/2021 06/03/2021 1 1 Reason Comments Results Reason Comments COVID positive home test Reason Comments Cough covid positive 2 Reason Comments Future Appointment today - cough Reason Comments Physical Reason Comments Refill Request Reason Onset Date Comments Refill Request 05/06/2022 Reason Comments Cough Reason Onset Date Comments Refill Request 10/21/2022 Reason Comments Yearly Exam Reason Comments fasting lab orders Reason Comments xray orders Reason Comments Results Reason Comments Dizziness Reason Comments Dizziness Reason Comments PT Eval Specialty Diagnoses / Procedures Referred By Contac t Referred To Contact [facility] Diagnoses Vertigo Procedures CONSULT TO PHYSICAL THERAPY PHYSICAL THERAPY EVALUATION HIGH COMPLEX 45 MINS Radha Santoro APRN.WHITE WASHER [address] [place] [address] [facility] [address] [place] [address] Referral ID Status Reason Start Date Expiration Date Visits Requested Visits Authorized [id number] Authorized Auto-Generat ed Referral 02/09/2023 02/09/2024 40 40 Reason Onset Date Comments Refill Request 01/14/2024 Reason Comments Orders Reason Comments Yearly Exam Care Teams (unrecognized sec tion and content) 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 Start Date End Date Vicente Castañeda MD [address] [place] [id number] PCP - General Family Practice 10/23/20 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 Start Date End Date Vicente Castañeda MD [address] [place] [address] PCP - General Family Practice 10/23/20 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 Start Date End Date Vicente Castañeda MD [address] [place] [id number] PCP - General Family Practice 10/23/20 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 Start Date End Date Vicente Castañeda MD [address] [place] [address] PCP - General Family Practice 10/23/20 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 Start Date End Date Vicente Castañeda MD [address] [place] [address] PCP - General Family Practice 10/23/20 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 Start Date End Date Vicente Castañeda MD [address] [place] [address] PCP - General Family Practice 10/23/20 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 Start Date End Date Vicente Castañeda MD [address] [place] [address] PCP - General Family Practice 10/23/20 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 Start Date End Date Vicente Castañeda MD [address] [place] [id number] PCP - General Family Practice 10/23/20 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 Start Date End Date Vicente Castañeda MD [address] [place] [address] PCP - General Family Practice 10/23/20 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 Start Date End Date Vicente Castañeda MD [address] [place] [id number] PCP - General Family Medicine 10/23/20 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 Start Date End Date Vicente Castañeda MD [address] [place] [address] PCP - General Family Medicine 10/23/20 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 Start Date End Date Vicente Castañeda MD [address] [place] [id number] PCP - General Family Medicine 10/23/20 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 Start Date End Date Vicente Castañeda MD [address] [place] [address] PCP - General Family Medicine 10/23/20 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 Start Date End Date Vicente Castañeda MD [address] [place] [address] PCP - General Family Medicine 10/23/20 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 Start Date End Date Vicente Castañeda MD [address] [place] [address] PCP - General Family Medicine 10/23/20 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 Start Date End Date Vicente Castañeda MD [address] [place] [address] PCP - General Family Medicine 10/23/20 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 Start Date End Date Vicente Castañeda MD [address] [place] [address] PCP - General Family Medicine 10/23/20 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 Start Date End Date Vicente Castañeda MD [address] [place] [address] PCP - General Family Medicine 10/23/20 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 Start Date End Date Vicente Castañeda MD [address] [place] [address] PCP - General Family Medicine 10/23/20 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 Start Date End Date Vicente Castañeda MD [address] [place] [address] PCP - General Family Medicine 10/23/20 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 Start Date End Date Vicente Castañeda MD [address] [place] [address] PCP - General Family Medicine 10/23/20 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 Start Date End Date Vicente Castañeda MD [address] [place] [address] PCP - General Family Medicine 10/23/20 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 Start Date End Date Vicente Castañeda MD [address] [place] [address] PCP - General Family Medicine 10/23/20 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 Start Date End Date Vicente Castañeda MD [address] [place] [address] PCP - General Family Medicine 05/16/24 Radha Santoro APRN.WHITE WASHER [address] [place] [address] Tool Crib Supervisor Family Medicine 07/11/24 Aurora Hahn PA-C [address] [place] [address] Tool Crib Supervisor Family Medicine 07/11/24 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 Start Date End Date Vicente Castañeda MD [address] [place] [address] PCP - General Family Medicine 05/16/24 Radha Santoro APRN.WHITE WASHER [address] [place] [address] Tool Crib Supervisor Family Medicine 07/11/24 Aurora Hahn PA-C [address] [place] [address] Tool Crib Supervisor Family Medicine 07/11/24 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 Start Date End Date Vicente Castañ[place] [address] [place] [address] [id number] PCP - General Family Medicine 11/19/18 10/09/20 Aurora Hahn PA-C [address] [place] [address] [id number] PCP - General Family Medicine 10/10/20 10/22/20 Vicente Castañeda MD [address] [place] [address] PCP - General Family Medicine 10/23/20 05/15/24 Vicente Castañeda MD [address] [address] [id number] PCP - General Family Medicine 05/16/24 Radha Santoro, TANYA.WHITE WASHER [address] [place] [address] Tool Crib Supervisor Family Medicine 01/16/24 06/26/24 Aurora Hahn PA-C [address] [place], [place] [address] Tool Crib Supervisor Family Medicine 01/16/24 07/10/24 Radha Santoro, TANYA.WHITE WASHER [address] [place] [id number] Tool Crib Supervisor Family Medicine 07/11/24 Aurora Hahn PA-C [address] [place] [address] Tool Crib Supervisor Family Medicine 07/11/24 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 Start Date End Date Aurora Hahn PA-C [address] [place] [address] [id number] PCP - General Family Medicine 10/10/20 10/22/20 Vicente Castañeda MD [address] [place] [address] PCP - General Family Medicine 10/23/20 05/15/24 Vicente Castañeda MD [address] [id number] PCP - [facility] 05/16/24 Radha Santoro APRN.WHITE WASHER [address] [place] [address] [facility] 01/16/24 06/26/24 Aurora Hahn PA-C [address] [place] [address] [id number] [facility] 01/16/24 07/10/24 Radha Santoro APRN.WHITE WASHER [address] [place] [address] [id number] [facility] 07/11/24 Aurora Hahn PA-C [address] [place] [address] [id number] [facility] 07/11/24 FOR RECORDS PERTAINING TO PATIENTS WHO ARE OR HAVE BEEN ENROLLED IN A CHEMICAL DEPENDENCY/SUBSTANCEABUSE PROGRAM, SOME INFORMATION MAY BE OMITTED. This clinical summary was aggregated from multiple sources. Caution should be exercised in using it in the provision of clinical care. This summary normalizes information from multiple sources, and as a consequence, information in this document may materially change the coding, format and clinical context of patient data. In addition, data may be omitted in some cases. CLINICAL DECISIONS SHOULD BE BASED ON THE PRIMARY CLINICAL RECORDS. [facility]. provides no warranty or guarantee of the accuracy or completeness of information in this document.
== END 2025-01-30 14:27 | disposition short-term general hospital (02) ==
LOC: ED 11:44
PROVIDERS: Emergency Provider Student in an Organized Health Care Education/Training Program; PCP Internal Medicine; Visit Provider Student in an Organized Health Care Education/Training Program
DX: M54.2 Cervicalgia (principal); R20.2 Paresthesia of skin; V43.52XA Car driver injured in collision with other type car in traffic accident, initial encounter; Z98.1 Arthrodesis status; M47.812 Spondylosis without myelopathy or radiculopathy, cervical region
CPT/HCPCS: 70450; 72125; 72128; 96374; 99285; A4216